=== PATIENT | male | born 1975 | race African-American/Black ===

== ENCOUNTER → 2020-09-25 | Outpatient (CLI) | payer MEDICAID, SELFPAY ==
[2020-09-25 17:16] VITALS: BMI 47.2
== END | disposition home or self-care (01) ==
LOC: LABSPEC 18:29
PROVIDERS: PCP Internal Medicine; Visit Provider Physician Assistant Surgical
DX: U07.1 COVID-19 (principal)
CPT/HCPCS: 87635; U0003

== ENCOUNTER 2020-09-30 07:53 | Inpatient (IN) | payer MEDICAID, SELFPAY ==
[2020-09-25 17:16] VITALS: BMI 47.2
[2020-09-30] VITALS (11 sets, daily range): BP systolic 106–162; BP diastolic 57–110; PULSE 93–116; RESP 16–20; TEMP 36–39.4; O2SAT 94–99; BMI 47.7; BMI 46.2
[2020-09-30] MEDS: 0.9% Normal Saline 1,000 ML 1000 ML IV ×2 (08:45→12:37)
[2020-09-30] MEDS: Loperamide 2 MG Capsule 4 MG PO (08:46)
[2020-09-30] MEDS: Dicyclomine 10 MG Capsule 20 MG PO (08:46)
[2020-09-30 08:56] LABS: ALB/GLOB Ratio 0.6 RATIO (0.9-2.4); AST(SGOT) 25 U/L (15-37); Alanine Aminotransfer ALT/SGPT 34 U/L (16-61); Albumin, Serum 3.4 g/dL (3.2-5.0); Alkaline Phosphatase 55 U/L (45-117); Anion Gap 10 (5-15); BUN 31 mg/dL (7-18); BUN/Creat Ratio 22.5 RATIO (10-20); Chloride 93 mmol/L (98-107); Creatinine, Serum 1.38 mg/dL (0.70-1.30); EST Glomerular Filtration Rate 59 mL/min (>60); Est Glom Filt Rate - Afr Amer 71 mL/min (>60); Estimated Creatinine Clearance 76.39 ml/min; Globulin 5.6 g/dL (2.2-4.2); Glucose 223 mg/dL (74-106); Potassium 3.6 mmol/L (3.5-5.1); Sodium Level 127 mmol/L (136-145)
--- NOTE | 2020-09-30 09:11 | ED.VIS.GEN ---
History of Present Illness Chief Complaint: Nausea/Vomiting Informant: Patient Onset: Days Context: Sudden Onset Timing: Continuous Quality: Abdominal pain, diarrhea, myalgias, symptoms of Covid Location: Generalized Current Severity: Moderate Maximum Severity: Severe Worsened by: Nothing specific Relieved by: Nothing Associated Symptoms: Covid symptoms Narrative: Patient is a 44-year-old male with history of obstructive sleep apnea, diabetes, hypertension, hypercholesterolemia who presents with fever, chills, scant Scooby productive cough of white sputum, dyspnea, dyspnea on exertion, myalgias, arthralgias, abdominal pain that is diffuse with diarrhea. There is no blood or mucus in the diarrhea. Patient's Covid test was positive last week. He has had symptoms for approximately 7 to 10 days. He does report headache. Denies photophobia, neck pain or neck stiffness. He does report nasal congestion denies loss of taste or smell. Denies ear pain, ringing in his ears or decreased hearing. He denies chest discomfort. He has a known umbilical hernia. He denies dysuria, frequency, urgency or hematuria. He is not noted a rash. He denies discoloration of his fingers or toes. Prior similar symptoms: Yes Recent Illness/Hospitalization: Yes - COVID-19 infection - Past Medical History (1) History of hypertension Status: Acute (2) History of type 2 diabetes mellitus Status: Acute (3) History of hypercholesterolemia Status: Acute (4) History of obstructive sleep apnea Status: Acute (5) 2019 novel coronavirus–infected pneumonia (NCIP)#8211;infected pneumonia (NCIP) Status: Acute Past Medical History - Allergies and Home Meds Allergies/Adverse Reactions: Allergies No Known Allergies Allergy (Verified 09/30/20 07:58) Primary Care Physician: Maria Luisa Sy MD [Primary Care Provider] - Prior records reviewed: Yes Lives: Alone Smoking Status: Former smoker Alcohol: None Drugs: None Review of Systems General: Reports: Chills, Fever, Malaise, Subjective, Sweats. Denies: Weight loss Eyes: Denies: Visual changes - bilaterally, Blurred Vision - bilaterally, Diplopia ENT: Reports: Rhinorrhea, Sore throat. Denies: Bilateral ear pain Cardiovascular: Reports: Palpitations, Heart racing. Denies: Chest pain Respiratory: Reports: Dyspnea, Cough, Sputum, Dyspnea on exertion. Denies: Orthopnea, Paroxysmal nocturnal dyspnea Gastrointestinal: Reports: Abdominal pain, Nausea, Vomiting - Patient reports nausea vomiting onset of illness. He no longer complains of nausea or vomiting., Diarrhea. Denies: Constipation, Melena, Hematochezia Genitourinary: Denies: Dysuria, Hematuria, Frequency Musculoskeletal: Reports: Myalgias, Arthralgias, Back pain, Extremity Pain. Denies: Neck pain, Swelling Skin: Denies: Rash Neurological: Reports: Headache, Weakness. Denies: Parasthesia, Numbness Endocrine: Denies: Polyuria, Polydipsia Hematologic: Denies: Easy bruising Allergy: Denies: Uticaria, Swelling of the mouth, Swelling of the tongue Physical Exam Vital Signs/Narrative: Vital Signs Temp Pulse Resp BP Pulse Ox 09/30/20 08:54 103 F H 106 H 16 132/57 H 99 09/30/20 07:54 96.8 F L 116 H 18 162/110 H 96 Inital Vital Signs reviewed: Yes - PE temperature of 103 ?F General: Well nourished, Well developed, Obese, - - Patient appears ill. Head: Normocephalic, Atraumatic Eyes: Perrl, EOMI. Negative for: Pale conjunctiva, Scleral icterus ENT: No rhinorrhea, TM's clear, Dry mucous membranes, Nasal congestion Neck: Supple, Nontender, No lymphadenopathy, No JVD Cardiovascular: Regular rhythm, No murmurs, Normal S1, Normal S2, Tachycardia Respiratory: No distress, CTA bilaterally, Chest nontender Abdomen: Soft, Nondistended, Normal bowel sounds, No masses, Umbilical hernia, Hernia reducible. Negative for: Nontender Rectal: Deferred Back: Nontender, Normal Inspection Extremities: Nontender, No edema. Negative for: Tenderness, Edema Skin: Normal color, No rash, No Trauma. Negative for: Cyanosis, Diaphoresis, Jaundice Neurological: Alert, Oriented x3, Cranial nerves II-XII grossly intact, Normal Strength, Normal Sensation Psychological: Depressed Diagnostic/Tx/Re-eval Laboratory Results 09/30/20 08:30 Sodium 127 L Potassium 3.6 Chloride 93 L Carbon Dioxide 24.0 Anion Gap 10 BUN 31 H Creatinine 1.38 H Estim Creat Clear Calc 76.39 Est GFR (MDRD) Af Amer 71 Est GFR (MDRD) Non-Af 59 L BUN/Creatinine Ratio 22.5 H Glucose 223 H Calcium 9.0 Total Bilirubin 0.80 AST 25 ALT 34 Alkaline Phosphatase 55 Total Protein 9.0 H Albumin 3.4 Globulin 5.6 H Albumin/Globulin Ratio 0.6 L Obtain blood work from Dr. Jimenez. He had blood work on July 21, 2020. Sodium was 138 creatinine was 0.7. Review of patient's blood pressure readings indicates a steady decline. Most recent was 93 after fluid bolus. Additional fluid bolus was ordered. His blood pressure was reassessed to confirm his low blood pressure reading and he does have a low blood pressure 91/34. In light of this we will obtain EKG and appropriate blood work to admit patient to the hospital. This is all due to poor p.o. intake and Covid infection. - Medical Decision Making In light of patient's multiple medical problems blood work was obtained to assess blood sugar, renal function and electrolytes. CBC to rule out anemia. Clinically patient is dehydrated. Was given 1 L of normal saline wide open. He was treated with Tylenol for his fever. Patient does report marked improvement of his abdominal pain after Bentyl. The time of admission labs were still pending. Labs will be followed by the hospitalist. 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
[2020-09-30] MEDS: Acetaminophen 325 MG Tablet 650 MG PO ×2 (09:30→14:08)
--- NOTE | 2020-09-30 11:12 | EKG12_ITS ---
Test Reason : Blood Pressure : / mmHG Vent. Rate : 102 BPM Atrial Rate : 102 BPM P-R Int : 156 ms QRS Dur : 108 ms QT Int : 374 ms P-R-T Axes : 045 -26 047 degrees QTc Int : 487 ms Sinus tachycardia Otherwise normal ECG Confirmed by NEHAL LOWE, SUNIL ([id number]), web editor DARLENE CHAPA ([id number]) on 10/02/2020 1:57:58 PM Referred By: KATHLEEN Confirmed By:SENG CALVERT MD
--- NOTE | 2020-09-30 11:28 | NURSING ---
DR MICHELLE WANG
--- NOTE | 2020-09-30 11:33 | RAD_ITS ---
STUDY: X-RAY CHEST REASON FOR EXAM: Male, 44 years old. COVID (+), [place] TECHNIQUE: Single AP portable view of the chest. COMPARISON: Comparison is made with prior study dated 04/20/2012. FINDINGS: Patchy infiltrate in the peripheral aspect of the right upper and right lower lobes as well as in the peripheral aspect of the left mid lung. Follow-up is recommended. There is no demonstrated pleural abnormality. Normal size heart. Normal mediastinum and julius. Normal visualized pulmonary arteries. Normal visualized aortic arch and descending thoracic aorta. There are diffuse degenerative changes of the visualized thoracic spine. Normal visualized ribs, clavicles, and shoulders. There is no demonstrated abnormality of the visualized soft tissue structures of the upper abdomen. RAD/Chest 1 View (Portable) IMPRESSION: Patchy peripheral infiltrates in the right upper and right lower lobes as well as in the midportion of the left lung. Follow-up is recommended. Electronically Signed: Shmuel Méndez, at 13:31 EST , Service support ,
--- NOTE | 2020-09-30 11:54 | NURSING ---
MED SURG MICHELLE HYPOTENSION, COVID 19, ELEVATED CREATININE, DIARRHEA
[2020-09-30 12:06] LABS: Mucous, Urine 0 SEEN /hpf (<or=2+); White Blood Cells 0 SEEN /hpf (0-5)
--- NOTE | 2020-09-30 12:10 | NURSING ---
DR MARTINEZ IN WITH PATIENT
[2020-09-30 12:11] LABS: Color, Urine Yellow (Yellow); Glucose, Dipstick Normal (Normal); Ketone-Dipstick 15 mg/dl (Negative); Leukocyte Esterase-Dipstick Negative /ul (Negative); Nitrite-Dipstick Negative (Negative); Occult Blood-Urine 25 /ul (Negative); Protein-Dipstick 100 mg/dl (Negative); Urine Bilirubin Dipstick Negative (Negative); Urine Clarity Sl. Cloudy (Clear); Urine Urobilinogen Normal (Normal)
[2020-09-30 12:19] LABS: Bacteria 1+ /hpf (None Seen); Red Blood Cells-Urine 0-5 SEEN /hpf (0-5); Squamous Epithelial Cells - UA 0-5 SEEN /hpf (0-5)
--- NOTE | 2020-09-30 12:34 | HP.PCM_ITS ---
Problem List (1) History of hypertension Status: Chronic (2) History of type 2 diabetes mellitus Status: Chronic (3) History of hypercholesterolemia Status: Chronic (4) History of obstructive sleep apnea Status: Chronic (5) 2019 novel coronavirus–infected pneumonia (NCIP)#8211;infected pneumonia (NCIP) Status: Acute (6) Hypotension due to hypovolemia Status: Acute (7) Hyperglycemia due to type 2 diabetes mellitus Status: Chronic (8) Sinus tachycardia by electrocardiography Status: Acute (9) Hyponatremia Status: Acute (10) Gastroenteritis due to COVID-19 virus Status: Acute (11) Acute kidney injury Status: Acute History of Present Illness Date of Admission: 09/30/20 Chief Complaint: Nausea, vomiting and diarrhea for about 1 week The patient is a 44 year old M with history hypertension, diabetes mellitus type 2 and morbid obesity tested positive COVID-19 PCR on 09/25/2022 after symptoms started 2?3 days prior that is 7 days ago. Patient states this started with weakness, nausea, vomiting and diarrhea. Vomiting 4-5 times clear gastric content and diarrhea watery 5-6 times without blood or mucus. Patient also felt mild abdominal cramps. He has mild cough predominantly dry sometimes a scanty whitish sputum, dyspnea on exertion, diffuse body aches myalgia and arthralgia. [] In ED his blood pressure dropped to systolic 90 which responded to the IV fluid and came to systolic 120. His usual systolic blood pressure is about 1 50-160 Twelve-lead EKG done in the ER shows sinus tachycardia at 102 bpm. QTC 487 ms. Chest x-ray PA and lateral is ordered. Past Medical History Past Medical History (Chronic Problems): Chronic Problems (Last Reviewed 09/25/20 @ 17:19 by Fabricio Shafer) History of hypertension (Chronic) History of type 2 diabetes mellitus (Chronic) History of hypercholesterolemia (Chronic) History of obstructive sleep apnea (Chronic) Hyperglycemia due to type 2 diabetes mellitus (Chronic) Allergies No Known Allergies Allergy (Verified 09/30/20 07:58) Home Medications: Ambulatory Orders Medication Instructions Recorded Amlodipine [Norvasc] 5 mg PO DAILY 09/30/20 Metformin HCl 1,000 mg PO BID 09/30/20 Lives: Alone Smoking Status: Former smoker Alcohol: None Drugs: None Review of Systems Constitutional: Denies: Chills, Fever, Weight Change HEENT: Denies: Head Aches, Sinus Congestion, Sinus Drainage Cardiovascular: Denies: Chest Pain, Palpitations Respiratory: Denies: Cough, Shortness of breath at rest, Sputum production Gastrointestinal: Reports: Abdominal Pain, Diarrhea, Nausea, Vomiting. Denies: Hematemesis, Hematochezia, Melena Genitourinary: Denies: Dysuria, Frequency Musculoskeletal: Denies: Joint Pain, Joint Tenderness Skin: Denies: Rash, Wounds Neurological: Reports: Balance problems. Denies: Focal weakness, Numbness, Tingling Psychiatric: Denies: Anxiety, Depression, Homicidal Ideations, Suicidal Ideations Hematologic/ Lymphatic: Denies: Easy Bruising, Easy Bleeding VTE Information - Inpt Only VTE Present on Admission: No VTE Mechan Device Prophylaxis: None VTE Pharm Prophylaxis ordered?: Yes Patient Problems: Active and Suspected Problems (Last Reviewed 09/25/20 @ 17:19 by Fabricio Shafer) 2019 novel coronavirus–infected pneumonia (NCIP)#8211;infected pneumonia (NCIP) (Acute) Hypotension due to hypovolemia (Acute) Sinus tachycardia by electrocardiography (Acute) Hyponatremia (Acute) - Physical Exam Vitals/I&O's: Vital Signs Temp Pulse Resp BP Pulse Ox 103 F H 106 H 16 106/58 L 99 09/30/20 08:54 09/30/20 08:54 09/30/20 08:54 09/30/20 11:23 09/30/20 08:54 Oxygen Delivery Method Room Air Weight: 362 lb Body Mass Index (BMI) 47.7 General: Alert, Oriented x3, Cooperative HEENT: Atraumatic, PERRLA, EOMI, Normocephalic Oral: No Gingival or Mucosal Lesions/ Ulcerations, Dry Mucosa Neck: Supple, No JVD, Negative Carotid Bruits Lungs: Clear to auscultation, Normal air movement Cardiovascular: Regular rate, Regular Rhythm, Normal S1, Normal S2, No murmurs Abdomen: Bowel Sounds Present, Soft, Non Tender, Non-Distended, - - Umbilical hernia reducible Extremities: No edema, Capillary Refill Less than 3 Seconds Skin: No rashes, No breakdown Musculoskeletal: No Tenderness to Palpation of Joints or Extremities Neurological: Cranial nerves II-XII grossly intact, Deep Tendon Reflexes 2+/4 and Symmetrical, Neuro grossly intact Psych/Mental Status: Normal Affect, Appropriate, - - Mild drowsy Laboratory Results 09/30/20 08:30: Sodium 127 L, Potassium 3.6, Chloride 93 L, Carbon Dioxide 24.0, Anion Gap 10, BUN 31 H, Creatinine 1.38 H, Estim Creat Clear Calc 76.39, Est GFR (MDRD) Af Amer 71, Est GFR (MDRD) Non-Af 59 L, BUN/Creatinine Ratio 22.5 H, Glucose 223 H, Calcium 9.0, Total Bilirubin 0.80, AST 25, ALT 34, Alkaline [place] sphatase 55, Total Protein 9.0 H, Albumin 3.4, Globulin 5.6 H, Albumin/Globulin Ratio 0.6 L 09/30/20 12:00: Urine Color Yellow, Urine Clarity Sl. Cloudy, Urine pH 6.0, Ur Specific [place] 1.020, Urine Protein 100 H, Urine Glucose (UA) Normal, Urine Ketones 15 H, Urine Occult Blood 25 H, Urine Nitrite Negative, Urine Bilirubin Negative, Urine Urobilinogen Normal, Ur Leukocyte Esterase Negative, Urine RBC 0-5 SEEN, Urine WBC 0 SEEN, Ur Squamous Epith Cells 0-5 SEEN, Urine Bacteria 1+, Urine Mucus 0 SEEN Assessment/Plan All Active Problems (Last Reviewed 09/25/20 @ 17:19 by Fabricio Shafer) 2019 novel coronavirus–infected pneumonia (NCIP)#8211;infected pneumonia (NCIP) (Acute) Hypotension due to hypovolemia (Acute) Sinus tachycardia by electrocardiography (Acute) Hyponatremia (Acute) Gastroenteritis due to COVID-19 virus (Acute) Acute kidney injury (Acute) 44-year-old Afro-L[place] gentleman admitted with nausea, vomiting, dry and mild cough with COVID-19 test positive 1. Acute viral gastroenteritis due to COVID-19: Patient is being admitted on MedSur. His blood pressure responded with IV fluid normal saline bolus given in ER. Continue normal saline at 150 mill per hour. Monitor intake and output. 2 g sodium carb controlled diet ordered. Chest x-ray PA and lateral ordered. Patient had fever 103 Fahrenheit. ID consult to see eligibility for remdesivir. Decadron 6 mg IV daily. Patient not hypoxic or tachypneic. 2. Acute kidney injury, prerenal etiology with hypotension due to gastroenteritis: IV fluid support. Monitor intake and output. Monitor kidney function. If kidney function does not improve will need renal ultrasound. 3. Diabetes mellitus type 2 glucose in BMP is 223 elevated. Accu-Cheks before meals and at bedtime and cover with Hem-o-kimberly sliding scale. Hold Metformin. 4. Hypertension: Patient was hypotensive and responded to IV fluid bolus. Hold amlodipine. VT prophylaxis, moderate risk: Lovenox 40 mg q. twice daily Inpatient E&M: 92206 Init Hosp L3
[2020-09-30] MEDS: dexAMETHasone 10 MG/ML Vial IV (12:37)
[2020-09-30 13:14] LABS: Absolute Lymphocyte Count 1.17 X10^3/uL (0.83-4.51); Absolute Neutrophil Count 4.7 X10^3/uL (2.0-7.7); Basophil# 0.02 X10^3/uL; Basophil% 0.3 % (0-1); Hematocrit 52.8 % (40-54); Hemoglobin 15.9 g/dL (13.0-16.5); Lymphocyte # 1.17 X10^3/ul (4.0); Lymphocyte % 18.1 % (19-41); Mean Corp Hgb Conc 30.1 g/dL (32-36); Mean Corpuscular Hgb 20.6 pg (27.0-32.0); Mean Corpuscular Volume 68.3 fL (80-94); Mean Platelet Vol. 10.6 fl (6.2-12.0); Monocyte# 0.55 X10^3/uL; Monocyte% 8.5 % (0-10); NRBC Flagged by Analyzer 0 % (0-5); Neutrophil % 72.6 % (47-70); POSITIVE MORPHOLOGY YES; Platelet Count 340 K/mm3 (150-450); RBC Distribution Width CV 16.8 % (11.6-14.6); RBC Distribution Width SD 35.3 fl (35.1-43.9); Red Blood Count 7.73 M/mm3 (4.6-6.2); White Blood Count 6.5 K/mm3 (4.4-11.0)
[2020-09-30 13:21] LABS: Differential Indicated SCAN CRITERIA MET
[2020-09-30 13:27] LABS: Ferritin 419 ng/mL (26-388); LDH 353 U/L (87-241)
[2020-09-30 13:46] LABS: D-Dimer Quantitative (DVT/PE) 4.44 FEU/ug/m (0.27-0.49)
[2020-09-30] MEDS: 0.9% Normal Saline 1,000 ML 150 ML IV ×2 (14:01→21:41)
[2020-09-30 14:03] LABS: Atypical Lymphocyte 1+ %
[2020-09-30 14:05] LABS: Platelet Estimate ADEQUATE (ADEQ); Red Cell Morphology NORM C+C NORMAL (NORM C&C)
[2020-09-30] MEDS: APIXABAN 5 MG TABLET 10 MG PO ×2 (14:37→21:38)
--- NOTE | 2020-09-30 16:28 | PCM.HP.ID ---
Problem List (1) SARS-associated coronavirus infection Status: Acute Reason for Consult: covid Consulted by: Dr. Seals History of Present Illness: The patient is a 44 year old M with h/o DM, obesity, presented with 1-2 weeks of fever, aches, loss of taste/smell, cough, dyspnea. Lives with fiancee and kids, they have been feeling ok, in quarantine now. Came to ED with worsening sx, admitted on dex, remdesivir. Temp of 103. On RA. Full ROS performed and neg except as noted above. - Medical History Past Medical History (Chronic Problems): Chronic Problems (Last Reviewed 09/25/20 @ 17:19 by Fabricio Shafer) History of hypertension (Chronic) History of type 2 diabetes mellitus (Chronic) History of hypercholesterolemia (Chronic) History of obstructive sleep apnea (Chronic) Hyperglycemia due to type 2 diabetes mellitus (Chronic) Allergies/Adverse Reactions: Allergies No Known Allergies Allergy (Verified 09/30/20 07:58) Home Medications: Ambulatory Orders Medication Instructions Recorded Amlodipine [Norvasc] 5 mg PO DAILY 09/30/20 Metformin HCl 1,000 mg PO BID 09/30/20 - Social History SMOKING STATUS:: Former smoker Vital Signs Temp Pulse Resp BP Pulse Ox 101.8 F H 98 20 H 142/83 H 97 09/30/20 13:31 09/30/20 13:31 09/30/20 13:31 09/30/20 13:31 09/30/20 13:31 Oxygen Delivery Method Room Air Weight: 158.842 kg Body Mass Index (BMI) 46.2 Laboratory Tests Past 24 Hrs 09/30/20 09/30/20 09/30/20 08:30 08:30 08:30 WBC 6.5 RBC 7.73 H Hgb 15.9 Hct 52.8 MCV 68.3 L MCH 20.6 L MCHC 30.1 L RDW Std Deviation 35.3 RDW Coeff of Kg 16.8 H Plt Count 340 MPV 10.6 Immature Gran % (Auto) 0.500 Neut % (Auto) 72.6 H Lymph % (Auto) 18.1 L [place] % (Auto) 8.5 Eos % (Auto) 0.0 Baso % (Auto) 0.3 Absolute Neuts (auto) 4.7 Absolute Lymphs (auto) 1.17 Nucleated RBC % 0 Atypical Lymphocytes 1+ Platelet Estimate ADEQUATE RBC Morphology NORM C+C D-Dimer Quant (PE/DVT) 4.44 H* Sodium 127 L Potassium 3.6 Chloride 93 L Carbon Dioxide 24.0 Anion Gap 10 BUN 31 H Creatinine 1.38 H Estim Creat Clear Calc 76.39 Est GFR (MDRD) Af Amer 71 Est GFR (MDRD) Non-Af 59 L BUN/Creatinine Ratio 22.5 H Glucose 223 H Calcium 9.0 Phosphorus Ferritin Total Bilirubin 0.80 AST 25 ALT 34 Alkaline Phosphatase 55 Lactate Dehydrogenase C-React Prot Ext Range Total Protein 9.0 H Albumin 3.4 Globulin 5.6 H Albumin/Globulin Ratio 0.6 L Urine Color Urine Clarity Urine pH Ur Specific [place] Urine Protein Urine Glucose (UA) Urine Ketones Urine Occult Blood Urine Nitrite Urine Bilirubin Urine Urobilinogen Ur Leukocyte Esterase Urine RBC Urine WBC Ur Squamous Epith Cells Urine Bacteria Urine Mucus 09/30/20 09/30/20 08:30 12:00 WBC RBC Hgb Hct MCV MCH MCHC RDW Std Deviation RDW Coeff of Kg Plt Count MPV Immature Gran % (Auto) Neut % (Auto) Lymph % (Auto) [place] % (Auto) Eos % (Auto) Baso % (Auto) Absolute Neuts (auto) Absolute Lymphs (auto) Nucleated RBC % Atypical Lymphocytes Platelet Estimate RBC Morphology D-Dimer Quant (PE/DVT) Sodium Potassium Chloride Carbon Dioxide Anion Gap BUN Creatinine Estim Creat Clear Calc Est GFR (MDRD) Af Amer Est GFR (MDRD) Non-Af BUN/Creatinine Ratio Glucose Calcium Phosphorus 3.0 Ferritin 419 H Total Bilirubin AST ALT Alkaline Phosphatase Lactate Dehydrogenase 353 H C-React Prot Ext Range 63.30 H Total Protein Albumin Globulin Albumin/Globulin Ratio Urine Color Yellow Urine Clarity Sl. Cloudy Urine pH 6.0 Ur Specific [place] 1.020 Urine Protein 100 H Urine Glucose (UA) Normal Urine Ketones 15 H Urine Occult Blood 25 H Urine Nitrite Negative Urine Bilirubin Negative Urine Urobilinogen Normal Ur Leukocyte Esterase Negative Urine RBC 0-5 SEEN Urine WBC 0 SEEN Ur Squamous Epith Cells 0-5 SEEN Urine Bacteria 1+ Urine Mucus 0 SEEN - Other Studies Radiology: [] reviewed Other Studies: [] Route of nutrition/ use of supplements: [] Nutritional Intake: [] IV Site: [] Ho Catheter: [] - Physical Exam General: Alert, Oriented x3, Cooperative, No apparent distress HEENT: Atraumatic, PERRLA, EOMI Neck: Supple, No Nodes Lungs: Diminished Cardiovascular: Regular rate, Regular Rhythm Abdomen: Soft, Non Tender, Non-Distended, Obese Extremities: No edema Skin: No rashes IV Site: Peripheral, without redness Musculoskeletal: No Tenderness to Palpation of Joints or Extremities Neurological: Cranial nerves II-XII grossly intact - Assessment/Plan Antibiotics: [] Assessment/Plan: [] Active and Suspected Problems (Last Reviewed 09/25/20 @ 17:19 by Fabricio Shafer) 2019 novel coronavirus–infected pneumonia (NCIP)#8211;infected pneumonia (NCIP) (Acute) Hypotension due to hypovolemia (Acute) Sinus tachycardia by electrocardiography (Acute) Hyponatremia (Acute) Gastroenteritis due to COVID-19 virus (Acute) Acute kidney injury (Acute) Acute renal insufficiency (Acute) Elevated serum creatinine (Acute) Diarrhea (Acute) SARS-associated coronavirus infection (Acute) covid with hypoxia, fever. Will do dex, remdesivir, eliquis. D-dimer 4.4. Sx started around 09/22/20. Will follow, thank you
[2020-09-30 17:00] LABS: Bedside Glucose 368 mg/dL (70-110)
[2020-09-30] MEDS: Insulin Lispro 100 UNIT/ML INSULN.PEN SC ×2 (17:36→20:42)
[2020-09-30 22:55] LABS: Bedside Glucose 352 mg/dL (70-110)
[2020-10-01] VITALS (13 sets, daily range): BP systolic 116–152; BP diastolic 65–105; PULSE 97–113; RESP 16–18; TEMP 36.7–37.6; O2SAT 92–95
[2020-10-01] MEDS: Insulin Lispro 100 UNIT/ML INSULN.PEN SC ×4 (06:04→21:39)
[2020-10-01 07:41] LABS: Bedside Glucose 212 mg/dL (70-110)
[2020-10-01 08:10] LABS: Hematocrit 42.9 % (40-54); Hemoglobin 13.2 g/dL (13.0-16.5); Mean Corp Hgb Conc 30.8 g/dL (32-36); Mean Corpuscular Hgb 21.1 pg (27.0-32.0); Mean Corpuscular Volume 68.6 fL (80-94); Mean Platelet Vol. 11.2 fl (6.2-12.0); Platelet Count 386 K/mm3 (150-450); RBC Distribution Width CV 15.6 % (11.6-14.6); RBC Distribution Width SD 35.5 fl (35.1-43.9); Red Blood Count 6.25 M/mm3 (4.6-6.2); White Blood Count 8.2 K/mm3 (4.4-11.0)
[2020-10-01 08:33] LABS: ALB/GLOB Ratio 0.6 RATIO (0.9-2.4); AST(SGOT) 19 U/L (15-37); Alanine Aminotransfer ALT/SGPT 28 U/L (16-61); Albumin, Serum 2.8 g/dL (3.2-5.0); Alkaline Phosphatase 47 U/L (45-117); Anion Gap 6 (5-15); BUN 18 mg/dL (7-18); BUN/Creat Ratio 20.7 RATIO (10-20); Calcium,Total 8.7 mg/dL (8.5-10.1); Chloride 102 mmol/L (98-107); Creatinine, Serum 0.87 mg/dL (0.70-1.30); EST Glomerular Filtration Rate 100 mL/min (>60); Est Glom Filt Rate - Afr Amer 121 mL/min (>60); Estimated Creatinine Clearance 121.18 ml/min; Globulin 4.9 g/dL (2.2-4.2); Glucose 200 mg/dL (74-106); Potassium 3.6 mmol/L (3.5-5.1); Protein, Total 7.7 g/dL (6.4-8.2); Sodium Level 134 mmol/L (136-145)
[2020-10-01] MEDS: APIXABAN 5 MG TABLET 10 MG PO ×2 (10:04→21:33)
[2020-10-01] MEDS: dexAMETHasone 4 MG Tablet 6 MG PO (10:04)
[2020-10-01] MEDS: proCHLORPERazine 10 MG/2 ML Vial IV (10:10)
[2020-10-01] MEDS: 0.9% Saline Lock 10 ML Syringe IV (10:10)
--- NOTE | 2020-10-01 10:27 | CASEMGMT ---
Addendum entered by Ankush Vela 10/01/20 12:18: Patient is being discharged. Attempted again to contact patient via hospital and cell phone. No answer, but per nursing pt is independent and no needs for discharge identified. Original Note: RN CM Assessment Note attempted x 2 to contact patient in room. No answer. Attempted x 2 to contact S.O. no answer. Pt presented to urgent care on 09/25/20 and tested positive for covid. Now with nausea, vomiting and diarrhea. They have been quarantining @ home. COVID TESTIN09/25/2020, @ [facility]: positive Diagnosis: COVID-19 PMH: DM, HTN PCP: Dr. Sy Insurance: [facility] Preferred Pharmacy: [facility] Pres[facility] Benefit: yes LNOK: Tricia Acosta Living Arrangements: Lives independently with significant other DME: If oxygen is needed, Bridget and STEVE are [employer] with [facility]. DC Plan: anticipate home on discharge. Sera RAMIREZ RN ACM
--- NOTE | 2020-10-01 10:58 | PCM.PN.HOSP ---
Patient Problems: Active and Suspected Problems (Last Reviewed 09/25/20 @ 17:19 by Fabricio Shafer) 2019 novel coronavirus–infected pneumonia (NCIP)#8211;infected pneumonia (NCIP) (Acute) Hypotension due to hypovolemia (Acute) Sinus tachycardia by electrocardiography (Acute) Hyponatremia (Acute) Gastroenteritis due to COVID-19 virus (Acute) Acute kidney injury (Acute) Acute renal insufficiency (Acute) Elevated serum creatinine (Acute) Diarrhea (Acute) SARS-associated coronavirus infection (Acute) Reason for Visit: Follow-up for COVID-19 infection with viral gastroenteritis Objective: Seen and examined. Morbid obesity. Patient had low-grade fever, 101.8 Fahrenheit yesterday. Still has mild abdominal cramps. Patient did not had any bowel movement or diarrhea after admission. Pulse ox 93% on room air and not tachypneic. Using CPAP at home Patient was doing good in the morning but he vomited in afternoon about 1 PM. Physical exam General: Alert, Oriented x3, Cooperative, morbid obesity BMI 46 kg/m? HEENT: Atraumatic, PERRLA, EOMI, Normocephalic Oral: No Gingival or Mucosal Lesions/ Ulcerations Neck: Supple, No JVD, Negative Carotid Bruits Lungs: Air entry diminished in bilateral lung bases. No crepitation/rhonchi Cardiovascular: Regular rate, Regular Rhythm, Normal S1, Normal S2, No murmurs Abdomen: Bowel Sounds Present, Soft, Non Tender, Non-Distended. Reducible umbilical hernia : No renal angle tenderness. No suprapubic tenderness. Extremities: No edema, Capillary Refill Less than 3 Seconds Skin: No rashes, No breakdown Musculoskeletal: No Tenderness to Palpation of Joints or Extremities Neurological: Cranial nerves II-XII grossly intact, Deep Tendon Reflexes 2+/4 and Symmetrical, Neuro grossly intact Psych/Mental Status: Normal Affect, Appropriate. Vitals/I&O's: Vital Signs Temp Pulse Resp BP Pulse Ox 99.6 F H 101 H 18 125/76 H 93 10/01/20 10:28 10/01/20 10:28 10/01/20 10:28 10/01/20 10:28 10/01/20 10:28 Oxygen Delivery Method Room Air Weight: 350 lb 2.986 oz Body Mass Index (BMI) 46.2 Intake and Output for Last 24 Hours 09/29/20 09/30/20 10/01/20 23:59 23:59 23:59 Intake Total 4350 / 4350 1500 / 1500 Output Total 1450 / 1450 1125 / 1125 Balance 2900 / 2900 375 / 375 Microbiology Past 72 Hours 09/30/20 Unknown Urine, Random Streptococcus pneumoniae Antigen (M - Final 09/30/20 Unknown Urine, Random Legionella Antigen - Final Laboratory Results 09/30/20 08:30: WBC 6.5, RBC 7.73 H, Hgb 15.9, Hct 52.8, MCV 68.3 L, MCH 20.6 L, MCHC 30.1 L, RDW Std Deviation 35.3, RDW Coeff of Kg 16.8 H, Plt Count 340, MPV 10.6, Immature Gran % (Auto) 0.500, Neut % (Auto) 72.6 H, Lymph % (Auto) 18.1 L, [place] % (Auto) 8.5, Eos % (Auto) 0.0, Baso % (Auto) 0.3, Absolute Neuts (auto) 4.7, Absolute Lymphs (auto) 1.17, Nucleated RBC % 0, Atypical Lymphocytes 1+, Platelet Estimate ADEQUATE, RBC Morphology NORM C+C 09/30/20 08:30: D-Dimer Quant (PE/DVT) 4.44 H* 09/30/20 08:30: Phosphorus 3.0, Ferritin 419 H, Lactate Dehydrogenase 353 H, C-React Prot Ext Range 63.30 H 09/30/20 12:00: Urine Color Yellow, Urine Clarity Sl. Cloudy, Urine pH 6.0, Ur Specific [place] 1.020, Urine Protein 100 H, Urine Glucose (UA) Normal, Urine Ketones 15 H, Urine Occult Blood 25 H, Urine Nitrite Negative, Urine Bilirubin Negative, Urine Urobilinogen Normal, Ur Leukocyte Esterase Negative, Urine RBC 0-5 SEEN, Urine WBC 0 SEEN, Ur Squamous Epith Cells 0-5 SEEN, Urine Bacteria 1+, Urine Mucus 0 SEEN 09/30/20 16:29: POC Glucose 368 H 09/30/20 20:40: POC Glucose 352 H 10/01/20 06:03: POC Glucose 212 H 10/01/20 07:05: WBC 8.2, RBC 6.25 H, Hgb 13.2, Hct 42.9, MCV 68.6 L, MCH 21.1 L, MCHC 30.8 L, RDW Std Deviation 35.5, RDW Coeff of Kg 15.6 H, Plt Count 386, MPV 11.2 10/01/20 07:05: Sodium 134 L, Potassium 3.6, Chloride 102, Carbon Dioxide 26.0, Anion Gap 6, BUN 18, Creatinine 0.87, Estim Creat Clear Calc 121.18, Est GFR (MDRD) Af Amer 121, Est GFR (MDRD) Non-Af 100, BUN/Creatinine Ratio 20.7 H, Glucose 200 H, Calcium 8.7, Total Bilirubin 0.60, AST 19, ALT 28, Alkaline Phosphatase 47, Total Protein 7.7, Albumin 2.8 L, Globulin 4.9 H, Albumin/Globulin Ratio 0.6 L Current Medications Acetaminophen (Acetaminophen 325 Mg Tablet) 650 mg PO Q4H PRN PRN PRN Reason: pain, 1-10/ FEVER T >100.4 Last Admin: 09/30/20 14:08 Dose: 650 mg Documented by: Al Hydroxide/Mg Hydroxide (Mag Hydrox/Al Hydrox/Simeth 30 Ml Udc) 30 ml PO Q6H PRN PRN PRN Reason: Gastric Burning Apixaban (Apixaban 5 Mg Tablet) 10 mg PO BID [facility] Last Admin: 10/01/20 10:04 Dose: 10 mg Documented by: Dexamethasone (Dexamethasone 4 Mg Tablet) 6 mg PO DAILY [facility] Stop: 10/09/20 10:01 Last Admin: 10/01/20 10:04 Dose: 6 mg Documented by: Dextrose (Dextrose 50%-Water 25 Gm/50 Ml Disp.Syrin) 0 gm IV X1 PRN; Protocol PRN Reason: Hypoglycemia Glucagon (Glucagon 1 Mg/Ml Syringe) 1 mg IM .X1 PRN PRN Reason: Hypoglycemia Remdesivir 100 mg/ Sodium (Chloride) 250 mls @ 125 mls/hr IV DAILY [facility] Stop: 10/04/20 11:59 Insulin Glargine (Insulin Glargine 100 Units/Ml Pen) 10 units SC QHS [facility] Last Admin: 09/30/20 20:42 Dose: 10 units Documented by: Insulin Human Lispro (Insulin Lispro 100 Unit/Ml Insuln.Pen) 0 unit SC ACHS [facility]; Protocol Last Admin: 10/01/20 06:04 Dose: 4 units Documented by: Morphine Sulfate (Morphine 2 Mg/Ml Syringe) 2 mg IV Q4H PRN PRN PRN Reason: Pain Score 6-10 Oxycodone HCl (Oxycodone 5 Mg Tablet) 5 mg PO Q4H PRN PRN PRN Reason: Pain Score 4-5 Prochlorperazine Edisylate (Prochlorperazine 10 Mg/2 Ml Vial) 10 mg IV Q6H PRN PRN PRN Reason: Nausea/Vomiting Last Admin: 10/01/20 10:10 Dose: 10 mg Documented by: Sodium Chloride (0.9% Saline Lock 10 Ml Syringe) 10 - 40 ml IV UD PRN PRN Reason: SALINE FLUSH Last Admin: 10/01/20 10:10 Dose: 10 ml Documented by: STROKE Vital Signs/Narrative: Vital Signs Temp Pulse Resp BP Pulse Ox 10/01/20 10:28 99.6 F H 101 H 18 125/76 H 93 Medical Necessity - Tobacco Use Smoking Status: Former smoker Assessment/Plan All Active Problems (Last Reviewed 09/25/20 @ 17:19 by Fabricio Shafer) 2019 novel coronavirus–infected pneumonia (NCIP)#8211;infected pneumonia (NCIP) (Acute) Hypotension due to hypovolemia (Acute) Sinus tachycardia by electrocardiography (Acute) Hyponatremia (Acute) Gastroenteritis due to COVID-19 virus (Acute) Acute kidney injury (Acute) Acute renal insufficiency (Acute) Elevated serum creatinine (Acute) Diarrhea (Acute) SARS-associated coronavirus infection (Acute) 44-year-old Afro-Welsh gentleman admitted with nausea, vomiting, dry and mild cough with COVID-19 test positive 1. Acute viral gastroenteritis due to COVID-19: Patient is being admitted on MedSur. His blood pressure responded with IV fluid normal saline bolus given in ER. Continue normal saline at 150 mill per hour. Monitor intake and output. 2 g sodium carb controlled diet ordered. Chest x-ray PA and lateral ordered. Patient had fever 103 Fahrenheit. ID consult to see eligibility for remdesivir. Decadron 6 mg IV daily. Patient not hypoxic or tachypneic. 10/01: Patient did not had bowel movement after admission therefore no stool collection for testing. Still complained of mild abdominal cramps. Tolerating diet. Patient vomited in the afternoon. Earlier he wanted to go home but will cancel the discharge. Continue IV fluid normal saline. Urinary antigens are negative. 2. Acute kidney injury, prerenal etiology with hypotension due to gastroenteritis: IV fluid support. Monitor intake and output. Monitor kidney function. If kidney function does not improve will need renal ultrasound. 10/01: BUN/creatinine normal. Sodium 134. 3. Diabetes mellitus type 2 glucose in BMP is 223 elevated. Accu-Cheks before meals and at bedtime and cover with Humalog sliding scale. Hold Metformin. 10/01: Glucose is controlled, glucose 212. Humalog scheduled 8 units 3 times daily with meals. 4. Hypertension: Patient was hypotensive and responded to IV fluid bolus. Hold amlodipine. VT prophylaxis, moderate risk: Lovenox 40 mg q. twice daily Microbiology Past 72 Hours 09/30/20 Unknown Urine, Random Streptococcus pneumoniae Antigen (M - Final 09/30/20 Unknown Urine, Random Legionella Antigen - Final Laboratory Results 09/30/20 08:30: WBC 6.5, RBC 7.73 H, Hgb 15.9, Hct 52.8, MCV 68.3 L, MCH 20.6 L, MCHC 30.1 L, RDW Std Deviation 35.3, RDW Coeff of Kg 16.8 H, Plt Count 340, MPV 10.6, Immature Gran % (Auto) 0.500, Neut % (Auto) 72.6 H, Lymph % (Auto) 18.1 L, [place] % (Auto) 8.5, Eos % (Auto) 0.0, Baso % (Auto) 0.3, Absolute Neuts (auto) 4.7, Absolute Lymphs (auto) 1.17, Nucleated RBC % 0, Atypical Lymphocytes 1+, Platelet Estimate ADEQUATE, RBC Morphology NORM C+C 09/30/20 08:30: D-Dimer Quant (PE/DVT) 4.44 H* 09/30/20 08:30: Phosphorus 3.0, Ferritin 419 H, Lactate Dehydrogenase 353 H, C-React Prot Ext Range 63.30 H 09/30/20 16:29: POC Glucose 368 H 09/30/20 20:40: POC Glucose 352 H 10/01/20 06:03: POC Glucose 212 H 10/01/20 07:05: WBC 8.2, RBC 6.25 H, Hgb 13.2, Hct 42.9, MCV 68.6 L, MCH 21.1 L, MCHC 30.8 L, RDW Std Deviation 35.5, RDW Coeff of Kg 15.6 H, Plt Count 386, MPV 11.2 10/01/20 07:05: Sodium 134 L, Potassium 3.6, Chloride 102, Carbon Dioxide 26.0, Anion Gap 6, BUN 18, Creatinine 0.87, Estim Creat Clear Calc 121.18, Est GFR (MDRD) Af Amer 121, Est GFR (MDRD) Non-Af 100, BUN/Creatinine Ratio 20.7 H, Glucose 200 H, Calcium 8.7, Total Bilirubin 0.60, AST 19, ALT 28, Alkaline Phosphatase 47, Total Protein 7.7, Albumin 2.8 L, Globulin 4.9 H, Albumin/Globulin Ratio 0.6 L 10/01/20 11:16: POC Glucose 297 H Inpatient E&M: 21288 Subs Hosp L2
--- NOTE | 2020-10-01 11:09 | DCINST_ITS ---
- Discharge Diagnoses Current Active Problems: Current Active and Chronic Problems (Last Reviewed 09/25/20 @ 17:19 by Fabricio Shafer) History of hypertension (Chronic) History of type 2 diabetes mellitus (Chronic) History of hypercholesterolemia (Chronic) History of obstructive sleep apnea (Chronic) 2019 novel coronavirus–infected pneumonia (NCIP)#8211;infected pneumonia (NCIP) (Acute) Hypotension due to hypovolemia (Acute) Hyperglycemia due to type 2 diabetes mellitus (Chronic) Sinus tachycardia by electrocardiography (Acute) Hyponatremia (Acute) Gastroenteritis due to COVID-19 virus (Acute) Acute kidney injury (Acute) Acute renal insufficiency (Acute) Elevated serum creatinine (Acute) Diarrhea (Acute) SARS-associated coronavirus infection (Acute) Allergies/Adverse Reactions: Allergies No Known Allergies Allergy (Verified 09/30/20 07:58) Medications to take at Discharge Amlodipine [Norvasc] 5 mg PO DAILY 09/30/20 Metformin HCl 1,000 mg PO BID 09/30/20 Primary Care Physician: Maria Luisa Sy MD [Primary Care Provider] - Test Results: Test results from this visit will be discussed in further detail at your follow- up appointment, if applicable.
[2020-10-01] MEDS: Insulin Lispro 100 UNIT/ML INSULN.PEN 8 UNIT SC (11:20)
[2020-10-01] MEDS: Mag Hydrox/Al Hydrox/Simeth 30 ML UDC PO (11:27)
[2020-10-01 11:30] LABS: Bedside Glucose 297 mg/dL (70-110)
[2020-10-01 17:16] LABS: Bedside Glucose 316 mg/dL (70-110)
[2020-10-01 22:00] LABS: Bedside Glucose 269 mg/dL (70-110)
[2020-10-02] VITALS (33 sets, daily range): BP systolic 88–144; BP diastolic 42–86; PULSE 87–121; RESP 12–29; TEMP 36.1–36.7; O2SAT 88–99
--- NOTE | 2020-10-02 06:18 | PCM.PN.BLA ---
Progress Note Nurse reports dark black stools beneath with blood. Will discontinue Eliquis. Will start patient on a Protonix IV drip and bolus. Rounding hospitalist to follow. Trend H&H. Discussed with general surgeon health information managers. STROKE Vital Signs/Narrative: Vital Signs Temp Pulse Resp BP Pulse Ox 10/02/20 03:06 98.1 F 100 16 122/81 H 98
[2020-10-02] MEDS: 0.9% Saline Lock 10 ML Syringe IV (06:50)
[2020-10-02 07:53] LABS: Hematocrit 31.2 % (40-54); Hemoglobin 9.8 g/dL (13.0-16.5); Mean Corp Hgb Conc 31.4 g/dL (32-36); Mean Corpuscular Hgb 21.2 pg (27.0-32.0); Mean Corpuscular Volume 67.5 fL (80-94); Mean Platelet Vol. 10.8 fl (6.2-12.0); Platelet Count 439 K/mm3 (150-450); RBC Distribution Width CV 14.5 % (11.6-14.6); RBC Distribution Width SD 34.3 fl (35.1-43.9); Red Blood Count 4.62 M/mm3 (4.6-6.2); White Blood Count 8.2 K/mm3 (4.4-11.0)
[2020-10-02] MEDS: Lactated Ringers 1,000 ML 999 ML IV ×2 (08:06→09:06)
[2020-10-02 08:17] LABS: ALB/GLOB Ratio 0.6 RATIO (0.9-2.4); AST(SGOT) 12 U/L (15-37); Alanine Aminotransfer ALT/SGPT 24 U/L (16-61); Albumin, Serum 2.6 g/dL (3.2-5.0); Alkaline Phosphatase 36 U/L (45-117); Anion Gap 7 (5-15); BUN 31 mg/dL (7-18); BUN/Creat Ratio 34.9 RATIO (10-20); Calcium,Total 8.6 mg/dL (8.5-10.1); Chloride 98 mmol/L (98-107); Creatinine, Serum 0.89 mg/dL (0.70-1.30); EST Glomerular Filtration Rate 98 mL/min (>60); Est Glom Filt Rate - Afr Amer 119 mL/min (>60); Estimated Creatinine Clearance 118.45 ml/min; Glucose 243 mg/dL (74-106); Potassium 3.8 mmol/L (3.5-5.1); Protein, Total 6.6 g/dL (6.4-8.2); Sodium Level 134 mmol/L (136-145)
[2020-10-02] MEDS: Insulin Lispro 100 UNIT/ML INSULN.PEN 8 UNIT SC (08:25)
[2020-10-02] MEDS: Insulin Lispro 100 UNIT/ML INSULN.PEN SC ×3 (08:26→23:19)
[2020-10-02] MEDS: dexAMETHasone 4 MG Tablet 6 MG PO (08:27)
--- NOTE | 2020-10-02 08:55 | RAD_ITS ---
STUDY: X-RAY CHEST REASON FOR EXAM: Male, 44 years old. LOW BLOOD PRESSURE, BLOOD IN STOOL, TACHYPNEA, COVID PNEUMONIA TECHNIQUE: Single AP portable view of the chest. COMPARISON: Comparison is made with prior study dated 09/30/2020. FINDINGS: EKG electrodes are seen. Residual patchy infiltrates in the lateral aspect of the right hemithorax although there has been improvement. Minimal residual changes in the left hemithorax. There is no demonstrated pleural abnormality. Normal size heart. Normal mediastinum and julius. Normal visualized pulmonary arteries. Normal visualized aortic arch and descending thoracic aorta. There are diffuse degenerative changes of the visualized thoracic spine. Normal visualized ribs, clavicles, and shoulders. There is no demonstrated abnormality of the visualized soft tissue structures of the upper abdomen. RAD/Chest 1 View (Portable) IMPRESSION: Since prior study, there has been improved aeration of both lungs with residual infiltrate in the lateral aspect of the right hemithorax. Electronically Signed: Shmuel Méndez, at 9:37 EST , Service support ,
--- NOTE | 2020-10-02 09:08 | PN_ITS ---
Patient Problems: Active and Suspected Problems (Last Reviewed 09/25/20 @ 17:19 by Fabricio Shafer) 2019 novel coronavirus–infected pneumonia (NCIP)#8211;infected pneumonia (NCIP) (Acute) Hypotension due to hypovolemia (Acute) Sinus tachycardia by electrocardiography (Acute) Hyponatremia (Acute) Gastroenteritis due to COVID-19 virus (Acute) Acute kidney injury (Acute) Acute renal insufficiency (Acute) Elevated serum creatinine (Acute) Diarrhea (Acute) SARS-associated coronavirus infection (Acute) GI bleed (Acute) Reason for Visit: Follow-up for acute GI bleed with hypotension, mostly secondary to Eliquis Objective: Overnight patient had bright red stool in the toilet bowl 3-4 times, last one just half an hour ago. 1 spike of fever 101.8 yesterday afternoon. Patient drop blood pressure systolic 88/61 is feeling weak. Patient sitting in the chair and IV fluid Ringer lactate bolus running. He denies any feeling dizzy or lightheaded but weak and mild abdominal discomfort. Heart rate in 100s. Pulse ox 98 to 99% on room air. Not tachypneic Physical exam General: Alert, Oriented x3, Cooperative HEENT: Atraumatic, PERRLA, EOMI, Normocephalic Oral: No Gingival or Mucosal Lesions/ Ulcerations Neck: Supple, No JVD, Negative Carotid Bruits Lungs: Air entry diminished in bilateral lung bases. No crepitation/rhonchi Cardiovascular: Regular rate, Regular Rhythm, Normal S1, Normal S2, No murmurs Abdomen: Bowel Sounds Present, Soft, Non Tender, Non-Distended. Moderate sized umbilical hernia : No renal angle tenderness. No suprapubic tenderness. Extremities: No edema, Capillary Refill Less than 3 Seconds Skin: No rashes, No breakdown Musculoskeletal: No Tenderness to Palpation of Joints or Extremities Neurological: Cranial nerves II-XII grossly intact, Deep Tendon Reflexes 2+/4 and Symmetrical, Neuro grossly intact Psych/Mental Status: Normal Affect, Appropriate. Vitals/I&O's: Vital Signs Temp Pulse Resp BP Pulse Ox 97.4 F L 102 H 16 88/61 L 99 10/02/20 08:20 10/02/20 08:20 10/02/20 08:20 10/02/20 08:20 12/04/20 08:20 Oxygen Delivery Method Room Air Weight: 350 lb 2.986 oz Body Mass Index (BMI) 46.2 Intake and Output for Last 24 Hours 09/30/20 10/01/20 10/02/20 23:59 23:59 23:59 Intake Total 4350 / 4350 1750 / 1750 1234 / 1234 Output Total 1450 / 1450 3325 / 3325 Balance 2900 / 2900 -1575 / -1575 1234 / 1234 Microbiology Past 72 Hours 10/02/20 06:00 Stool Stool Occult Blood (LINETTE) - Final 10/01/20 14:15 Stool Stool Lactoferrin - Final 10/01/20 14:15 Stool Enteric Bacteriology - Final 10/01/20 14:15 Stool Stool Occult Blood (LINETTE) - Final 09/30/20 Unknown Urine, Random Streptococcus pneumoniae Antigen (M - Final 09/30/20 Unknown Urine, Random Legionella Antigen - Final Laboratory Results 10/01/20 11:16: POC Glucose 297 H 10/01/20 17:04: POC Glucose 316 H 10/01/20 21:38: POC Glucose 269 H 10/02/20 06:55: WBC 8.2, RBC 4.62, Hgb 9.8 L, Hct 31.2 L, MCV 67.5 L, MCH 21.2 L , MCHC 31.4 L, RDW Std Deviation 34.3 L, RDW Coeff of Kg 14.5, Plt Count 439, MPV 10.8 10/02/20 06:55: Sodium 134 L, Potassium 3.8, Chloride 98, Carbon Dioxide 29.0, Anion Gap 7, BUN 31 H, Creatinine 0.89, Estim Creat Clear Calc 118.45, Est GFR (MDRD) Af Amer 119, Est GFR (MDRD) Non-Af 98, BUN/Creatinine Ratio 34.9 H, Glucose 243 H, Calcium 8.6, Total Bilirubin 0.50, AST 12 L, ALT 24, Alkaline Phosphatase 36 L, Total Protein 6.6, Albumin 2.6 L, Globulin 4.0, Albumin/Globulin Ratio 0.6 L Current Medications Acetaminophen (Acetaminophen 325 Mg Tablet) 650 mg PO Q4H PRN PRN PRN Reason: pain, 1-10/ FEVER T >100.4 Last Admin: 09/30/20 14:08 Dose: 650 mg Documented by: Al Hydroxide/Mg Hydroxide (Mag Hydrox/Al Hydrox/Simeth 30 Ml Udc) 30 ml PO Q6H PRN PRN PRN Reason: Gastric Burning Last Admin: 10/01/20 11:27 Dose: 30 ml Documented by: Dexamethasone (Dexamethasone 4 Mg Tablet) 6 mg PO DAILY [facility] Stop: 10/09/20 10:01 Last Admin: 10/02/20 08:27 Dose: 6 mg Documented by: Dextrose (Dextrose 50%-Water 25 Gm/50 Ml Disp.Syrin) 0 gm IV X1 PRN; Protocol PRN Reason: Hypoglycemia Glucagon (Glucagon 1 Mg/Ml Syringe) 1 mg IM .X1 PRN PRN Reason: Hypoglycemia Remdesivir 100 mg/ Sodium (Chloride) 250 mls @ 125 mls/hr IV DAILY [facility] Stop: 10/04/20 11:59 Last Infusion: 10/01/20 13:17 Dose: Infused Documented by: Pantoprazole Sodium 80 mg/ (Sodium Chloride) 100 mls @ 10 mls/hr CONT INF Q10H [facility] Last Admin: 10/02/20 08:03 Dose: 10 mls/hr Documented by: Lactated Ringer's () 1,000 mls @ 999 mls/hr IV .Q1H1M [facility] Stop: 10/02/20 09:15 Last Admin: 10/02/20 09:06 Dose: 999 mls/hr Documented by: Lactated Ringer's () 1,000 mls @ 125 mls/hr IV .Q8H [facility] Insulin Glargine (Insulin Glargine 100 Units/Ml Pen) 10 units SC BID [facility] Last Admin: 10/02/20 08:26 Dose: 10 units Documented by: Insulin Human Lispro (Insulin Lispro 100 Unit/Ml Insuln.Pen) 0 unit SC ACHS [facility]; Protocol Last Admin: 10/02/20 08:26 Dose: 6 units Documented by: Insulin Human Lispro (Insulin Lispro 100 Unit/Ml Insuln.Pen) 8 unit SC TIDAC [facility] Last Admin: 10/02/20 08:25 Dose: 8 u Documented by: Morphine Sulfate (Morphine 2 Mg/Ml Syringe) 2 mg IV Q4H PRN PRN PRN Reason: Pain Score 6-10 Oxycodone HCl (Oxycodone 5 Mg Tablet) 5 mg PO Q4H PRN PRN PRN Reason: Pain Score 4-5 Prochlorperazine Edisylate (Prochlorperazine 10 Mg/2 Ml Vial) 10 mg IV Q6H PRN PRN PRN Reason: Nausea/Vomiting Last Admin: 10/01/20 10:10 Dose: 10 mg Documented by: Sodium Chloride (0.9% Saline Lock 10 Ml Syringe) 10 - 40 ml IV UD PRN PRN Reason: SALINE FLUSH Last Admin: 10/02/20 06:50 Dose: 10 ml Documented by: STROKE Vital Signs/Narrative: Vital Signs Temp Pulse Resp BP Pulse Ox 10/02/20 08:20 97.4 F L 102 H 16 88/61 L 99 10/02/20 06:19 106 H Medical Necessity - Tobacco Use Smoking Status: Former smoker Assessment/Plan All Active Problems (Last Reviewed 09/25/20 @ 17:19 by Fabricio Shafer) 2019 novel coronavirus–infected pneumonia (NCIP)#8211;infected pneumonia (NCIP) (Acute) Hypotension due to hypovolemia (Acute) Sinus tachycardia by electrocardiography (Acute) Hyponatremia (Acute) Gastroenteritis due to COVID-19 virus (Acute) Acute kidney injury (Acute) Acute renal insufficiency (Acute) Elevated serum creatinine (Acute) Diarrhea (Acute) SARS-associated coronavirus infection (Acute) GI bleed (Acute) 44-year-old Afro-[place] gentleman admitted with nausea, vomiting, dry and mild cough with COVID-19 test positive 1. Acute GI bleed most probably secondary to Eliquis: Patient was empirically started Eliquis full anticoagulation dose based on high D-dimer 4.44. CTPA was not done because of BUN/creatinine elevated 31/1.38. Yesterday patient H&H was stable 13.2/42.9 although mild drop was thought to be hemodilution from IV fluid. Patient had bright red rectal bleed and Eliquis discontinued started on IV fluid Ringer lactate bolus. H&H every [address] Burt is being consulted. Patient is being transferred to ICU. An/Ssn 2 4 Operator consulted. Patient had 80 mg of Protonix and started on 40 g every 12 hourly. PICC line is ordered. Patient has bedside EGD in ICU. EGD shows oozing duodenal ulcer with fat and clot in D2. It seems that patient had duodenal ulcer which bled on anticoagulation, Eliquis. Patient was complaining of vague abdominal pain/discomfort. 2. Acute viral gastroenteritis due to COVID-19: Patient is being admitted on MedSurg. Patient having current GI bleed.Paradoxically, stool for occult blood x2 is negative. Enteric bacteriology panel negative. Stool for lactoferrin positive. Patient on Decadron and remdesivir. Patient had fever 103 Fahrenheit as per EMS. Hypoxic or tachypneic. Chest x-ray shows patchy peripheral infiltrate in right upper and right lower lobes and mid left lung. AP chest x- ray ordered. 3. Acute kidney injury, prerenal etiology with hypotension due to gastroenteritis: Creatinine improved to 0.87 with IV fluid support. Today BUN went up probably due to upper GI bleed. Creatinine normal. Sodium 134. 4. Diabetes mellitus type 2 glucose in BMP is 223 elevated. Accu-Cheks before meals and at bedtime and cover with Humalog sliding scale. Hold Metformin. 10/01: Glucose is controlled, glucose 212. Humalog scheduled 8 units 3 times daily with meals. 10/02: Glucose is high average about 250. On Lantus. Currently patient is n.p.o. therefore insulin sliding scale coverage dose. 5. Hypertension: Patient was hypotensive. Hold amlodipine. VT prophylaxis, moderate risk: Lovenox 40 mg q. twice daily Microbiology Past 72 Hours 10/02/20 06:00 Stool Stool Occult Blood (LINETTE) - Final 10/01/20 14:15 Stool Stool Lactoferrin - Final 10/01/20 14:15 Stool Enteric Bacteriology - Final 10/01/20 14:15 Stool Stool Occult Blood (LINETTE) - Final 09/30/20 Unknown Urine, Random Streptococcus pneumoniae Antigen (M - Final 09/30/20 Unknown Urine, Random Legionella Antigen - Final Laboratory Results 10/01/20 07:05: Blood Type Pending, Antibody Screen Pending, Crossmatch See Detail 10/01/20 11:16: POC Glucose 297 H 10/01/20 17:04: POC Glucose 316 H 10/01/20 21:38: POC Glucose 269 H 10/02/20 06:55: WBC 8.2, RBC 4.62, Hgb 9.8 L, Hct 31.2 L, MCV 67.5 L, MCH 21.2 L , MCHC 31.4 L, RDW Std Deviation 34.3 L, RDW Coeff of Kg 14.5, Plt Count 439, MPV 10.8 10/02/20 06:55: Sodium 134 L, Potassium 3.8, Chloride 98, Carbon Dioxide 29.0, Anion Gap 7, BUN 31 H, Creatinine 0.89, Estim Creat Clear Calc 118.45, Est GFR (MDRD) Af Amer 119, Est GFR (MDRD) Non-Af 98, BUN/Creatinine Ratio 34.9 H, Glucose 243 H, Calcium 8.6, Total Bilirubin 0.50, AST 12 L, ALT 24, Alkaline Phosphatase 36 L, Total Protein 6.6, Albumin 2.6 L, Globulin 4.0, Albumin/Globulin Ratio 0.6 L Inpatient E&M: 71049 Subs Hosp L3
--- NOTE | 2020-10-02 09:11 | PCM.CONS.GEN ---
Problem List (1) GI bleed Status: Acute Qualifiers: GI bleed type/associated pathology: unspecified gastrointestinal hemorrhage type Qualified Code(s): K92.2 - Gastrointestinal hemorrhage, unspecified (2) SARS-associated coronavirus infection Status: Acute Reason for Consult Date of Consultation: 10/02/20 Reason for Consultation: GI bleed History of Present Illness: The patient is a 44 year old M who was recently admitted for Covid. The patient notes that overnight he had a bloody bowel movement and then started to develop worsening diarrhea with blood. He is having minimal abdominal pain at this time. No nausea or vomiting at this time. Patient did have some clear vomiting before admission. The patient was started on blood thinners due to an elevated D-dimer and Covid infection. The patient is never had a GI bleed in the past. Patient is not on any NSAIDs. He is not taking PPI. Past Medical History Past Medical History (Chronic Problems): Chronic Problems (Last Reviewed 09/25/20 @ 17:19 by Fabricio Shafer) History of hypertension (Chronic) History of type 2 diabetes mellitus (Chronic) History of hypercholesterolemia (Chronic) History of obstructive sleep apnea (Chronic) Hyperglycemia due to type 2 diabetes mellitus (Chronic) Allergies No Known Allergies Allergy (Verified 09/30/20 07:58) Home Medications: Ambulatory Orders Medication Instructions Recorded Amlodipine [Norvasc] 5 mg PO DAILY 09/30/20 Metformin HCl 1,000 mg PO BID 09/30/20 Lives: Alone Smoking Status: Former smoker Alcohol: None Drugs: None Review of Systems Constitutional: Reports: Fever. Denies: Anorexia HEENT: Denies: Difficulty Swallowing Cardiovascular: Denies: Chest Pain Respiratory: Reports: Cough, Shortness of Breath Gastrointestinal: Reports: Abdominal Pain, Diarrhea, Hematochezia, Vomiting. Denies: Constipation, Dyspepsia, Hematemesis, Nausea, Melena Genitourinary: Denies: Retention Neurological: Denies: Balance problems Psychiatric: Denies: Anxiety Hematologic/ Lymphatic: Denies: Anemia, Easy Bruising, Easy Bleeding Patient Problems: Active and Suspected Problems (Last Reviewed 09/25/20 @ 17:19 by Fabricio Shafer) 2019 novel coronavirus–infected pneumonia (NCIP)#8211;infected pneumonia (NCIP) (Acute) Hypotension due to hypovolemia (Acute) Sinus tachycardia by electrocardiography (Acute) Hyponatremia (Acute) Gastroenteritis due to COVID-19 virus (Acute) Acute kidney injury (Acute) Acute renal insufficiency (Acute) Elevated serum creatinine (Acute) Diarrhea (Acute) SARS-associated coronavirus infection (Acute) - Physical Exam Vitals/I&O's: Vital Signs Temp Pulse Resp BP Pulse Ox 97.4 F L 102 H 16 88/61 L 99 10/02/20 08:20 10/02/20 08:20 10/02/20 08:20 10/02/20 08:20 10/02/20 08:20 Oxygen Delivery Method Room Air Weight: 350 lb 2.986 oz Body Mass Index (BMI) 46.2 Intake and Output for Last 24 Hours 09/30/20 10/01/20 10/02/20 23:59 23:59 23:59 Intake Total 4350 / 4350 1750 / 1750 1234 / 1234 Output Total 1450 / 1450 3325 / 3325 Balance 2900 / 2900 -1575 / -1575 1234 / 1234 General: Alert, Oriented x3, Cooperative, No apparent distress Neck: No JVD Abdomen: Soft, Non Tender, Non-Distended Skin: No rashes Musculoskeletal: No Muscle Wasting Neurological: Cranial nerves II-XII grossly intact Psych/Mental Status: Normal Affect Microbiology Past 72 Hours 10/02/20 06:00 Stool Stool Occult Blood (LINETTE) - Final 10/01/20 14:15 Stool Stool Lactoferrin - Final 10/01/20 14:15 Stool Enteric Bacteriology - Final 10/01/20 14:15 Stool Stool Occult Blood (LINETTE) - Final 09/30/20 Unknown Urine, Random Streptococcus pneumoniae Antigen (M - Final 09/30/20 Unknown Urine, Random Legionella Antigen - Final Laboratory Results 10/01/20 11:16: POC Glucose 297 H 10/01/20 17:04: POC Glucose 316 H 10/01/20 21:38: POC Glucose 269 H 10/02/20 06:55: WBC 8.2, RBC 4.62, Hgb 9.8 L, Hct 31.2 L, MCV 67.5 L, MCH 21.2 L, MCHC 31.4 L, RDW Std Deviation 34.3 L, RDW Coeff of Kg 14.5, Plt Count 439, MPV 10.8 10/02/20 06:55: Sodium 134 L, Potassium 3.8, Chloride 98, Carbon Dioxide 29.0, Anion Gap 7, BUN 31 H, Creatinine 0.89, Estim Creat Clear Calc 118.45, Est GFR (MDRD) Af Amer 119, Est GFR (MDRD) Non-Af 98, BUN/Creatinine Ratio 34.9 H, Glucose 243 H, Calcium 8.6, Total Bilirubin 0.50, AST 12 L, ALT 24, Alkaline Phosphatase 36 L, Total Protein 6.6, Albumin 2.6 L, Globulin 4.0, Albumin/Globulin Ratio 0.6 L Clinical Impression(s) from Imaging Studies Chest X-Ray 09/30/20 11:33 IMPRESSION: Patchy peripheral infiltrates in the right upper and right lower lobes as well as in the midportion of the left lung. Follow-up is recommended. Electronically Signed: Shmuel Méndez, at 13:31 EST , Service support , Current Medications Acetaminophen (Acetaminophen 325 Mg Tablet) 650 mg PO Q4H PRN PRN PRN Reason: pain, 1-10/ FEVER T >100.4 Last Admin: 09/30/20 14:08 Dose: 650 mg Documented by: Al Hydroxide/Mg Hydroxide (Mag Hydrox/Al Hydrox/Simeth 30 Ml Udc) 30 ml PO Q6H PRN PRN PRN Reason: Gastric Burning Last Admin: 10/01/20 11:27 Dose: 30 ml Documented by: Dexamethasone (Dexamethasone 4 Mg Tablet) 6 mg PO DAILY JOEL Stop: 10/09/20 10:01 Last Admin: 10/02/20 08:27 Dose: 6 mg Documented by: Dextrose (Dextrose 50%-Water 25 Gm/50 Ml Disp.Syrin) 0 gm IV X1 PRN; Protocol PRN Reason: Hypoglycemia Glucagon (Glucagon 1 Mg/Ml Syringe) 1 mg IM .X1 PRN PRN Reason: Hypoglycemia Remdesivir 100 mg/ Sodium (Chloride) 250 mls @ 125 mls/hr IV DAILY JOEL Stop: 10/04/20 11:59 Last Infusion: 10/01/20 13:17 Dose: Infused Documented by: Pantoprazole Sodium 80 mg/ (Sodium Chloride) 100 mls @ 10 mls/hr CONT INF Q10H JOEL Last Admin: 10/02/20 08:03 Dose: 10 mls/hr Documented by: Lactated Ringer's () 1,000 mls @ 999 mls/hr IV .Q1H1M [facility] Stop: 10/02/20 09:15 Last Admin: 10/02/20 09:06 Dose: 999 mls/hr Documented by: Lactated Ringer's () 1,000 mls @ 125 mls/hr IV .Q8H [facility] Insulin Glargine (Insulin Glargine 100 Units/Ml Pen) 10 units SC BID [facility] Last Admin: 10/02/20 08:26 Dose: 10 units Documented by: Insulin Human Lispro (Insulin Lispro 100 Unit/Ml Insuln.Pen) 0 unit SC ACHS [facility]; Protocol Last Admin: 10/02/20 08:26 Dose: 6 units Documented by: Insulin Human Lispro (Insulin Lispro 100 Unit/Ml Insuln.Pen) 8 unit SC TIDAC [facility] Last Admin: 10/02/20 08:25 Dose: 8 u Documented by: Morphine Sulfate (Morphine 2 Mg/Ml Syringe) 2 mg IV Q4H PRN PRN PRN Reason: Pain Score 6-10 Oxycodone HCl (Oxycodone 5 Mg Tablet) 5 mg PO Q4H PRN PRN PRN Reason: Pain Score 4-5 Prochlorperazine Edisylate (Prochlorperazine 10 Mg/2 Ml Vial) 10 mg IV Q6H PRN PRN PRN Reason: Nausea/Vomiting Last Admin: 10/01/20 10:10 Dose: 10 mg Documented by: Sodium Chloride (0.9% Saline Lock 10 Ml Syringe) 10 - 40 ml IV UD PRN PRN Reason: SALINE FLUSH Last Admin: 10/02/20 06:50 Dose: 10 ml Documented by: Assessment/Plan All Active Problems (Last Reviewed 09/25/20 @ 17:19 by Fabricio Shafer) 2019 novel coronavirus–infected pneumonia (NCIP)#8211;infected pneumonia (NCIP) (Acute) Hypotension due to hypovolemia (Acute) Sinus tachycardia by electrocardiography (Acute) Hyponatremia (Acute) Gastroenteritis due to COVID-19 virus (Acute) Acute kidney injury (Acute) Acute renal insufficiency (Acute) Elevated serum creatinine (Acute) Diarrhea (Acute) SARS-associated coronavirus infection (Acute) GI bleed (Acute) 44-year-old male with GI bleed 1. The patient is having a copious amount of bloody diarrhea at this time. He is not having any nausea or vomiting at this time but he did have vomiting before admission. The patient is also Covid and was started on anticoagulant for an elevated D-dimer. Patient has patchy infiltrates on chest x-ray. The patient is also hypotensive this morning which is a new finding. 2. At this time I recommend the patient be moved to the ICU for closer monitoring and possible transfusion. Recommend monitoring hemoglobin every 4 and keep the patient n.p.o. Once the patient is resuscitated and able to undergo a procedure I will perform a bedside EGD. I discussed this with the patient he is agreeable. Patient has been started on a PPI and his blood thinner has been held. I explained endoscopy in detail to the patient. I explained the risks including but not limited to stroke or heart attack with anesthesia, perforation of the GI tract, bleeding, infection. I explained that any of these could necessitate further emergency surgery. The patient understands and all questions were answered sufficiently. The patient wishes to proceed with procedure. Neil Burt MD Pager: [facility] [address] [place] [address] [address] [place] [address] Office:
--- NOTE | 2020-10-02 09:22 | CON.PCM_ITS ---
Reason for Consult Date of Consultation: 10/02/20 Reason for Consultation: Acute blood loss anemia History of Present Illness: The patient is a 44-year-old male, with a history as outlined below, who initially presented to the emergency department on September 30 with complaints of fever, body aches, cough and shortness of breath. The symptoms had initially began 1 to 2 weeks prior to his emergency department evaluation. The patient had tested positive for coronavirus on September 25. The patient denies any history of prior venous thromboembolic disease. He has not recently been immobilized. On presentation to the emergency department, the patient was noted to be afebrile but was tachycardic. He was maintaining appropriate oxygen saturations on room air. Initial laboratory evaluation revealed no evidence of a leukocytosis. D-dimer was elevated to 4.4. Chemistry profile was notable for a sodium of 127 and creatinine of 1.38. The patient was subsequently admitted to the coronavirus cohort unit. He was seen in consultation by infectious diseases. The patient did receive supplemental IV fluid hydration and was started on remdesivir and Decadron. Given his elevated D-dimer level, the patient was also started on Eliquis. Based upon a Wells score for PE, the patient would be considered low risk. In addition, the patient has remained stable from an oxygenation standpoint on room air throughout his hospital course. Overnight, the patient developed diarrhea with kelin blood. General surgery was consulted to evaluate the patient. Past Medical History Past Medical History (Chronic Problems): Chronic Problems (Last Reviewed 09/25/20 @ 17:19 by Fabricio Shafer) History of hypertension (Chronic) History of type 2 diabetes mellitus (Chronic) History of hypercholesterolemia (Chronic) History of obstructive sleep apnea (Chronic) Hyperglycemia due to type 2 diabetes mellitus (Chronic) Allergies No Known Allergies Allergy (Verified 09/30/20 07:58) Home Medications: Ambulatory Orders Medication Instructions Recorded Amlodipine [Norvasc] 5 mg PO DAILY 09/30/20 Metformin HCl 1,000 mg PO BID 09/30/20 Lives: Alone Smoking Status: Former smoker Alcohol: None Drugs: None Review of Systems Constitutional: Reports: Malaise, Fatigue. Denies: Chills, Fever Eyes: Denies: Blurred vision, Double vision HEENT: Denies: Head Aches, Sinus Congestion, Sinus Drainage Cardiovascular: Denies: Chest Pain, Palpitations Respiratory: Reports: Cough. Denies: Shortness of Breath Gastrointestinal: Reports: Diarrhea, Hematochezia. Denies: Abdominal Pain Genitourinary: Denies: Dysuria Musculoskeletal: Denies: Joint Pain, Joint Tenderness Skin: Denies: Rash, Wounds Neurological: Denies: Numbness, Tingling, Focal weakness Psychiatric: Denies: Anxiety, Depression, Homicidal Ideations, Suicidal Ideations Hematologic/ Lymphatic: Reports: Anemia. Denies: Hx of blood clot, Hx of blood transfusion Patient Problems: Active and Suspected Problems (Last Reviewed 09/25/20 @ 17:19 by Fabricio Shafer) 2019 novel coronavirus–infected pneumonia (NCIP)#8211;infected pneumonia (NCIP) (Acute) Hypotension due to hypovolemia (Acute) Sinus tachycardia by electrocardiography (Acute) Hyponatremia (Acute) Gastroenteritis due to COVID-19 virus (Acute) Acute kidney injury (Acute) Acute renal insufficiency (Acute) Elevated serum creatinine (Acute) Diarrhea (Acute) SARS-associated coronavirus infection (Acute) GI bleed (Acute) Objective: The patient's most recent lab work, culture data and imaging studies have all been personally reviewed. - Physical Exam Vitals/I&O's: Vital Signs Temp Pulse Resp BP Pulse Ox 97.4 F L 102 H 16 88/61 L 99 10/02/20 08:20 10/02/20 08:20 10/02/20 08:20 10/02/20 08:20 10/02/20 08:20 Oxygen Delivery Method Room Air Weight: 350 lb 2.986 oz Body Mass Index (BMI) 46.2 Intake and Output for Last 24 Hours 09/30/20 10/01/20 10/02/20 23:59 23:59 23:59 Intake Total 4350 / 4350 1750 / 1750 1234 / 1234 Output Total 1450 / 1450 3325 / 3325 Balance 2900 / 2900 -1575 / -1575 1234 / 1234 General: Alert, Oriented x3, Cooperative, No apparent distress, - - Morbidly obese. Sitting in bedside recliner. HEENT: Atraumatic, PERRLA, Normocephalic Oral: No Gingival or Mucosal Lesions/ Ulcerations Neck: Supple, No Nodes, Trachea Midline Lungs: Normal air movement, Tachypneic Cardiovascular: Normal S1, Normal S2, No murmurs, Tachycardic Abdomen: Bowel Sounds Present, Soft, Non Tender, Obese Extremities: No clubbing, No cyanosis, No edema Skin: No breakdown Musculoskeletal: No Tenderness to Palpation of Joints or Extremities Lymphatic: No Cervical, Supraclavicular, or Inguinal Adenopathy Neurological: Cranial nerves II-XII grossly intact, Neuro grossly intact Psych/Mental Status: Normal Affect, Appropriate Labs (Last 48 Hours) 09/30/20 09/30/20 09/30/20 08:30 08:30 08:30 WBC 6.5 RBC 7.73 H Hgb 15.9 Hct 52.8 MCV 68.3 L MCH 20.6 L MCHC 30.1 L RDW Std Deviation 35.3 RDW Coeff of Kg 16.8 H Plt Count 340 MPV 10.6 Immature Gran % (Auto) 0.500 Neut % (Auto) 72.6 H Lymph % (Auto) 18.1 L [place] % (Auto) 8.5 Eos % (Auto) 0.0 Baso % (Auto) 0.3 Absolute Neuts (auto) 4.7 Absolute Lymphs (auto) 1.17 Nucleated RBC % 0 Atypical Lymphocytes 1+ Platelet Estimate ADEQUATE RBC Morphology NORM C+C D-Dimer Quant (PE/DVT) 4.44 H* Sodium Potassium Chloride Carbon Dioxide Anion Gap BUN Creatinine Estim Creat Clear Calc Est GFR (MDRD) Af Amer Est GFR (MDRD) Non-Af BUN/Creatinine Ratio Glucose Calcium Phosphorus 3.0 Ferritin 419 H Total Bilirubin AST ALT Alkaline Phosphatase Lactate Dehydrogenase 353 H C-React Prot Ext Range 63.30 H Total Protein Albumin Globulin Albumin/Globulin Ratio Urine Color Urine Clarity Urine pH Ur Specific [place] Urine Protein Urine Glucose (UA) Urine Ketones Urine Occult Blood Urine Nitrite Urine Bilirubin Urine Urobilinogen Ur Leukocyte Esterase Urine RBC Urine WBC Ur Squamous Epith Cells Urine Bacteria Urine Mucus POC Glucose Blood Type Antibody Screen Crossmatch 09/30/20 09/30/20 09/30/20 12:00 16:29 20:40 WBC RBC Hgb Hct MCV MCH MCHC RDW Std Deviation RDW Coeff of Kg Plt Count MPV Immature Gran % (Auto) Neut % (Auto) Lymph % (Auto) [place] % (Auto) Eos % (Auto) Baso % (Auto) Absolute Neuts (auto) Absolute Lymphs (auto) Nucleated RBC % Atypical Lymphocytes Platelet Estimate RBC Morphology D-Dimer Quant (PE/DVT) Sodium Potassium Chloride Carbon Dioxide Anion Gap BUN Creatinine Estim Creat Clear Calc Est GFR (MDRD) Af Amer Est GFR (MDRD) Non-Af BUN/Creatinine Ratio Glucose Calcium Phosphorus Ferritin Total Bilirubin AST ALT Alkaline Phosphatase Lactate Dehydrogenase C-React Prot Ext Range Total Protein Albumin Globulin Albumin/Globulin Ratio Urine Color Yellow Urine Clarity Sl. Cloudy Urine pH 6.0 Ur Specific [place] 1.020 Urine Protein 100 H Urine Glucose (UA) Normal Urine Ketones 15 H Urine Occult Blood 25 H Urine Nitrite Negative Urine Bilirubin Negative Urine Urobilinogen Normal Ur Leukocyte Esterase Negative Urine RBC 0-5 SEEN Urine WBC 0 SEEN Ur Squamous Epith Cells 0-5 SEEN Urine Bacteria 1+ Urine Mucus 0 SEEN POC Glucose 368 H 352 H Blood Type Antibody Screen Crossmatch 10/01/20 10/01/20 10/01/20 06:03 07:05 07:05 WBC 8.2 RBC 6.25 H Hgb 13.2 Hct 42.9 MCV 68.6 L MCH 21.1 L MCHC 30.8 L RDW Std Deviation 35.5 RDW Coeff of Kg 15.6 H Plt Count 386 MPV 11.2 Immature Gran % (Auto) Neut % (Auto) Lymph % (Auto) [place] % (Auto) Eos % (Auto) Baso % (Auto) Absolute Neuts (auto) Absolute Lymphs (auto) Nucleated RBC % Atypical Lymphocytes Platelet Estimate RBC Morphology D-Dimer Quant (PE/DVT) Sodium 134 L Potassium 3.6 Chloride 102 Carbon Dioxide 26.0 Anion Gap 6 BUN 18 Creatinine 0.87 Estim Creat Clear Calc 121.18 Est GFR (MDRD) Af Amer 121 Est GFR (MDRD) Non-Af 100 BUN/Creatinine Ratio 20.7 H Glucose 200 H Calcium 8.7 Phosphorus Ferritin Total Bilirubin 0.60 AST 19 ALT 28 Alkaline Phosphatase 47 Lactate Dehydrogenase C-React Prot Ext Range Total Protein 7.7 Albumin 2.8 L Globulin 4.9 H Albumin/Globulin Ratio 0.6 L Urine Color Urine Clarity Urine pH Ur Specific [place] Urine Protein Urine Glucose (UA) Urine Ketones Urine Occult Blood Urine Nitrite Urine Bilirubin Urine Urobilinogen Ur Leukocyte Esterase Urine RBC Urine WBC Ur Squamous Epith Cells Urine Bacteria Urine Mucus POC Glucose 212 H Blood Type Antibody Screen Crossmatch 10/01/20 10/01/20 10/01/20 07:05 11:16 17:04 WBC RBC Hgb Hct MCV MCH MCHC RDW Std Deviation RDW Coeff of Kg Plt Count MPV Immature Gran % (Auto) Neut % (Auto) Lymph % (Auto) [place] % (Auto) Eos % (Auto) Baso % (Auto) Absolute Neuts (auto) Absolute Lymphs (auto) Nucleated RBC % Atypical Lymphocytes Platelet Estimate RBC Morphology D-Dimer Quant (PE/DVT) Sodium Potassium Chloride Carbon Dioxide Anion Gap BUN Creatinine Estim Creat Clear Calc Est GFR (MDRD) Af Amer Est GFR (MDRD) Non-Af BUN/Creatinine Ratio Glucose Calcium Phosphorus Ferritin Total Bilirubin AST ALT Alkaline Phosphatase Lactate Dehydrogenase C-React Prot Ext Range Total Protein Albumin Globulin Albumin/Globulin Ratio Urine Color Urine Clarity Urine pH Ur Specific [place] Urine Protein Urine Glucose (UA) Urine Ketones Urine Occult Blood Urine Nitrite Urine Bilirubin Urine Urobilinogen Ur Leukocyte Esterase Urine RBC Urine WBC Ur Squamous Epith Cells Urine Bacteria Urine Mucus POC Glucose 297 H 316 H Blood Type B POSITIVE Antibody Screen NEGATIVE Crossmatch See Detail 10/01/20 10/02/20 10/02/20 21:38 06:55 06:55 WBC 8.2 RBC 4.62 Hgb 9.8 L Hct 31.2 L MCV 67.5 L MCH 21.2 L MCHC 31.4 L RDW Std Deviation 34.3 L RDW Coeff of Kg 14.5 Plt Count 439 MPV 10.8 Immature Gran % (Auto) Neut % (Auto) Lymph % (Auto) [place] % (Auto) Eos % (Auto) Baso % (Auto) Absolute Neuts (auto) Absolute Lymphs (auto) Nucleated RBC % Atypical Lymphocytes Platelet Estimate RBC Morphology D-Dimer Quant (PE/DVT) Sodium 134 L Potassium 3.8 Chloride 98 Carbon Dioxide 29.0 Anion Gap 7 BUN 31 H Creatinine 0.89 Estim Creat Clear Calc 118.45 Est GFR (MDRD) Af Amer 119 Est GFR (MDRD) Non-Af 98 BUN/Creatinine Ratio 34.9 H Glucose 243 H Calcium 8.6 Phosphorus Ferritin Total Bilirubin 0.50 AST 12 L ALT 24 Alkaline Phosphatase 36 L Lactate Dehydrogenase C-React Prot Ext Range Total Protein 6.6 Albumin 2.6 L Globulin 4.0 Albumin/Globulin Ratio 0.6 L Urine Color Urine Clarity Urine pH Ur Specific [place] Urine Protein Urine Glucose (UA) Urine Ketones Urine Occult Blood Urine Nitrite Urine Bilirubin Urine Urobilinogen Ur Leukocyte Esterase Urine RBC Urine WBC Ur Squamous Epith Cells Urine Bacteria Urine Mucus POC Glucose 269 H Blood Type Antibody Screen Crossmatch Microbiology 10/02/20 06:00 Stool Stool Occult Blood (LINETTE) - Final 10/01/20 14:15 Stool Stool Lactoferrin - Final 10/01/20 14:15 Stool Enteric Bacteriology - Final 10/01/20 14:15 Stool Stool Occult Blood (LINETTE) - Final 09/30/20 Unknown Urine, Random Streptococcus pneumoniae Antigen (M - Final 09/30/20 Unknown Urine, Random Legionella Antigen - Final Clinical Impression(s) from Imaging Studies Chest X-Ray 09/30/20 11:33 IMPRESSION: Patchy peripheral infiltrates in the right upper and right lower lobes as well as in the midportion of the left lung. Follow-up is recommended. Electronically Signed: Shmuel Méndez, at 13:31 EST , Service support , Chest X-Ray 10/02/20 08:55 IMPRESSION: Since prior study, there has been improved aeration of both lungs with residual infiltrate in the lateral aspect of the right hemithorax. Electronically Signed: Shmuel Méndez, at 9:37 EST , Service support , Current Medications Acetaminophen (Acetaminophen 325 Mg Tablet) 650 mg PO Q4H PRN PRN PRN Reason: pain, 1-10/ FEVER T >100.4 Last Admin: 09/30/20 14:08 Dose: 650 mg Documented by: Al Hydroxide/Mg Hydroxide (Mag Hydrox/Al Hydrox/Simeth 30 Ml Udc) 30 ml PO Q6H PRN PRN PRN Reason: Gastric Burning Last Admin: 10/01/20 11:27 Dose: 30 ml Documented by: Dexamethasone (Dexamethasone 4 Mg Tablet) 6 mg PO DAILY JOEL Stop: 10/09/20 10:01 Last Admin: 10/02/20 08:27 Dose: 6 mg Documented by: Dextrose (Dextrose 50%-Water 25 Gm/50 Ml Disp.Syrin) 0 gm IV X1 PRN; Protocol PRN Reason: Hypoglycemia Glucagon (Glucagon 1 Mg/Ml Syringe) 1 mg IM .X1 PRN PRN Reason: Hypoglycemia Remdesivir 100 mg/ Sodium (Chloride) 250 mls @ 125 mls/hr IV DAILY [facility] Stop: 10/04/20 11:59 Last Infusion: 10/01/20 13:17 Dose: Infused Documented by: Pantoprazole Sodium 80 mg/ (Sodium Chloride) 100 mls @ 10 mls/hr CONT INF Q10H [facility] Last Admin: 10/02/20 08:03 Dose: 10 mls/hr Documented by: Lactated Ringer's () 1,000 mls @ 125 mls/hr IV .Q8H [facility] Insulin Glargine (Insulin Glargine 100 Units/Ml Pen) 10 units SC BID [facility] Last Admin: 10/02/20 08:26 Dose: 10 units Documented by: Insulin Human Lispro (Insulin Lispro 100 Unit/Ml Insuln.Pen) 0 unit SC ACHS [facility]; Protocol Last Admin: 10/02/20 08:26 Dose: 6 units Documented by: Insulin Human Lispro (Insulin Lispro 100 Unit/Ml Insuln.Pen) 8 unit SC TIDAC [facility] Last Admin: 10/02/20 08:25 Dose: 8 u Documented by: Morphine Sulfate (Morphine 2 Mg/Ml Syringe) 2 mg IV Q4H PRN PRN PRN Reason: Pain Score 6-10 Oxycodone HCl (Oxycodone 5 Mg Tablet) 5 mg PO Q4H PRN PRN PRN Reason: Pain Score 4-5 Prochlorperazine Edisylate (Prochlorperazine 10 Mg/2 Ml Vial) 10 mg IV Q6H PRN PRN PRN Reason: Nausea/Vomiting Last Admin: 10/01/20 10:10 Dose: 10 mg Documented by: Sodium Chloride (0.9% Saline Lock 10 Ml Syringe) 10 - 40 ml IV UD PRN PRN Reason: SALINE FLUSH Last Admin: 10/02/20 06:50 Dose: 10 ml Documented by: Assessment/Plan Active and Suspected Problems (Last Reviewed 09/25/20 @ 17:19 by Fabricio Shafer) 2019 novel coronavirus–infected pneumonia (NCIP)#8211;infected pneumonia (NCIP) (Acute) Hypotension due to hypovolemia (Acute) Sinus tachycardia by electrocardiography (Acute) Hyponatremia (Acute) Gastroenteritis due to COVID-19 virus (Acute) Acute kidney injury (Acute) Acute renal insufficiency (Acute) Elevated serum creatinine (Acute) Diarrhea (Acute) SARS-associated coronavirus infection (Acute) GI bleed (Acute) RECOMMENDATIONS: 1. Send type and screen. Monitor H&H closely and transfuse if hemoglobin drops below 7 g/dL. 2. Continue PPI therapy. 3. Low suspicion for PE. No need for further anticoagulation. 4. Establish and maintain 2 large-bore peripheral IVs. 5. Continue remdesivir. Monitor liver and renal function accordingly. 6. Stop steroids over concerns for GI bleed. IMPRESSIONS: 1. Acute blood loss anemia The patient did develop bloody diarrhea overnight in the setting of systemic anticoagulation on Eliquis. The patient denied any prior GI bleeding. Hemoglobin did drop from 13 to 9.8 g/dL. However, at the present time, he is hemodynamically stable. Recommend sending type and screen. Transfusion of blood products can be entertained if hemoglobin continues to drop. The patient will be continued on PPI therapy. Given that the patient has no supplemental oxygen requirement and has a low Wells PE score, I do not feel that any future anticoagulation is necessary. General surgery is following with plans for endoscopy this afternoon. 2. COVID-19 pneumonia The patient is currently maintaining appropriate oxygen saturations on room air. Agree with continuing current supportive measures including remdesivir as ordered. 3. Morbid obesity/hypertension/diabetes mellitus Complicates care, management, recovery and prognosis. Hold antihypertensives for now. Continue Lantus and sliding scale insulin coverage. This note was generated with [employer] dictation software. It may contain incorrect words, spelling, and punctuation that were not noted in checking the note before signing. Inpatient E&M: 83594 Init Hosp L3
--- NOTE | 2020-10-02 14:25 | PCM.OP.PRO ---
Procedure Report Date of Procedure: 10/02/20 CONSCIOUS SEDATION REPORT DATE OF SERVICE: October 02, 2020 BRIEF HISTORY OF PRESENT ILLNESS: The patient is a 44-year-old male who presented to [facility] with COVID-19 pneumonia. The patient was started on systemic anticoagulation and developed upper GI bleeding. He was moved to the intensive care unit and I was asked to provide conscious sedation support during an upper endoscopy. The patient denied any previous anesthetic complications. He has no known drug allergies. PHYSICAL EXAMINATION: VITAL SIGNS: Reviewed and were acceptable. GENERAL: The patient is an obese -I[place] male, in no apparent distress, speaking in full sentences. HEENT: Normocephalic, atraumatic. Mucous membranes are moist and pink. Good mouth opening noted. Trachea is midline. Good neck mobility. CHEST: Regular rate and rhythm. No murmurs, rubs or gallops were noted. LUNGS: Clear to auscultation bilaterally without appreciable wheezes, rales or rhonchi. ABDOMEN: Soft, nontender, nondistended. Positive bowel sounds. EXTREMITIES: There is no clubbing, cyanosis or edema. ASA Class: II DESCRIPTION OF PROCEDURE: After confirmation of informed consent, the patient's anesthesia plan was reviewed in detail. Propofol was chosen. Risks and benefits were reviewed and the patient agreed to proceed. At 1407, the patient was given his first bolus of propofol. In total, the patient required 200 mg of propofol throughout the entire procedure to achieve and maintain an appropriate level of sedation. Upper endoscopy was successfully completed by Dr. Burt at the bedside. The patient was monitored until 1425, at which time, he reached his baseline mental status and function. The patient tolerated the procedure well. COMPLICATIONS: None ESTIMATED BLOOD LOSS: None RECOMMENDATIONS: Okay to recover in usual fashion. Procedure was performed independent of initial consultation, billed separately, on the same date. [id number]: Other Procedure See Report - [id number]
--- NOTE | 2020-10-02 14:40 | OP.EGD_ITS ---
Patient Name: Yohana Mariscal Procedure Date: 10/02/2020 1:55 PM Date of : 1975 Age: 44 Procedure: Upper GI endoscopy Indications: Hematochezia Providers: Neil Burt MD Medicines: Monitored Anesthesia Care Patient Profile: This is a 44 year old male. Refer to note in patient chart for documentation of history and physical. Complications: No immediate complications. Estimated blood loss: Minimal. Procedure: Pre-Anesthesia Assessment: - Prior to the procedure, a History and Physical was performed, and patient medications and allergies were reviewed. The patient's tolerance of previous anesthesia was also reviewed. The risks and benefits of the procedure and the sedation options and risks were discussed with the patient. All questions were answered, and informed consent was obtained. Prior Anticoagulants: The patient has taken Eliquis (apixaban), last dose was 1 day prior to procedure. After reviewing the risks and benefits, the patient was deemed in satisfactory condition to undergo the procedure. After obtaining informed consent, the endoscope was passed under direct vision. Throughout the procedure, the patient's blood pressure, pulse, and oxygen saturations were monitored continuously. The gastroscope was introduced through the mouth, and advanced to the fourth part of duodenum. The upper GI endoscopy was accomplished without difficulty. The patient tolerated the procedure well. Scope In: Scope Out: Findings: The esophagus was normal. The stomach was normal. One oozing cratered duodenal ulcer with adherent clot was found in the second portion of the duodenum. Impression: - Normal esophagus. - Normal stomach. - One oozing duodenal ulcer with adherent clot. - No specimens collected. Recommendation: - Clear liquid diet. - Continue present medications. Procedure Code(s): --- Professional --- 88997, Esophagogastroduodenoscopy, flexible, transoral; diagnostic, including collection of specimen(s) by brushing or washing, when performed (separate procedure) Diagnosis Code(s): --- Professional --- K26.4, Chronic or unspecified duodenal ulcer with hemorrhage K92.1, Melena (includes Hematochezia) CPT copyright 2017 [employer]. All rights reserved. The codes documented in this report are preliminary and upon security compliance specialist review may be revised to meet current compliance requirements. Neil Burt MD 10/02/2020 2:40:10 PM This report has been signed electronically. Number of Addenda: 0 Note Initiated On: 10/02/2020 1:55 PM
--- NOTE | 2020-10-02 14:40 | OP.CCLET_ITS ---
10/02/2020 Maria Luisa Sy [address] [id number] Re : Upper GI endoscopy procedure for Yohana Mariscal Dear Dr. Sy This procedure was performed on Friday, October 02, 2020. My impressions and recommendations are as follows: Impressions : - Normal esophagus. - Normal stomach. - One oozing duodenal ulcer with adherent clot. - No specimens collected. Recommendations : - Clear liquid diet. - Continue present medications. My findings are described in the full procedure note, which is enclosed. If I can be of further assistance, please feel free to contact me at Doctor phone number(s): , Work: . Sincerely, Neil Burt MD 10/02/2020 2:40:10 PM This report has been signed electronically.
--- NOTE | 2020-10-02 14:41 | PCM.PN.BLA ---
Progress Note Patient had a bedside EGD. The patient did not have any active bleeding in the stomach. The patient did have a duodenal ulcer with adherent clot with no active bleeding only some slow oozing. The patient may have a clear liquid diet and continue IV PPI twice daily. I recommend that the patient stop his steroids and blood thinner. Recommend rechecking hemoglobin after transfusion and again in the morning. Neil Burt MD Pager: [facility] [address] [place] [address] [address] [place] [address] Office: [facility] Vital Signs/Narrative: Vital Signs Temp Pulse Resp BP BP Pulse Ox 10/02/20 12:22 97.4 F L 107 H 22 H 118/65 98 10/02/20 12:07 97.4 F L 102 H 21 H 102/72 94 10/02/20 12:00 97.0 F L 103 H 22 H 97/42 L 96 10/02/20 11:50 94 10/02/20 11:49 102 H 10/02/20 11:45 105 H 24 H 103/71 88 10/02/20 11:36 97.0 F L 121 H 28 H 109/71 95
[2020-10-02 14:55] LABS: Bedside Glucose 273 mg/dL (70-110)
[2020-10-02 16:40] LABS: Bedside Glucose 305 mg/dL (70-110)
--- NOTE | 2020-10-02 16:49 | NURSING ---
pt had EGD at bedside. Start time was 1407. 200mg of propofol given through out the procedure. end time was 1425. pt is stable. Endo staff charted time out and procedure.
[2020-10-02] MEDS: Lactated Ringers 1,000 ML 125 ML IV (22:28)
[2020-10-02 23:23] LABS: Hematocrit 27.7 % (40-54); Hemoglobin 8.9 g/dL (13.0-16.5)
[2020-10-03] VITALS (28 sets, daily range): BP systolic 117–170; BP diastolic 58–106; PULSE 80–111; RESP 14–27; TEMP 36.1–37.2; O2SAT 90–98
[2020-10-03 01:05] LABS: Bedside Glucose 318 mg/dL (70-110)
--- NOTE | 2020-10-03 01:23 | PN_ITS ---
Progress Note Overnight, nurse reported the patient continued to have large bloody bowel movements with clots. Pre Hemoglobin Transfusion was 9.8 and 1 hour po sttransfusion was 8.9. We will give another units of blood. Keep n.p.o. Will discuss withe general surgeon [facility] Vital Signs/Narrative: Vital Signs Temp Pulse Resp BP BP Pulse Ox 10/02/20 23:00 88 13 133/74 H 95 10/02/20 22:00 87 15 127/79 H 96 10/02/20 21:28 97.2 F L 99 12 116/78 94
--- NOTE | 2020-10-03 05:43 | PN_ITS ---
Subjective: The patient was seen and examined at the bedside this morning. Events from the last 24 hours have been reviewed. The patient is currently afebrile, hemodynamically stable and maintaining appropriate oxygen saturations on room air. Overnight, the patient continued to have bloody bowel movements. To date, the patient has been transfused a total of 3 units of packed red blood cells. He denies any shortness of breath. Objective: The patient's most recent lab work, culture data and imaging studies have all been personally reviewed. General: Alert, Cooperative, No apparent distress HEENT: Atraumatic, PERRLA, Normocephalic Oral: Moist Mucosa, No Gingival or Mucosal Lesions/ Ulcerations Neck: Supple, No Nodes, Trachea Midline Lungs: No rhonchi, No wheeze, No rales, Diminished Cardiovascular: Regular rate, Regular Rhythm Abdomen: Bowel Sounds Present, Soft, Non Tender, Obese Extremities: No clubbing, No cyanosis, No edema Skin: No breakdown Musculoskeletal: No Tenderness to Palpation of Joints or Extremities, No Muscle Wasting Lymphatic: No Cervical, Supraclavicular, or Inguinal Adenopathy Neurological: Cranial nerves II-XII grossly intact, Neuro grossly intact Psych/Mental Status: Alert and oriented to time, place, person, mood and affect Vital Signs Temp Pulse Resp BP Pulse Ox 97.0 F L 85 17 152/75 H 93 10/03/20 02:29 10/03/20 05:00 10/03/20 05:00 10/03/20 05:00 10/03/20 05:00 Oxygen Flow Rate (L/min) 1 Oxygen Delivery Method Room Air Weight: 323 lb 10.217 oz Body Mass Index (BMI) 46.2 Intake and Output for Last 24 Hours 10/01/20 10/02/20 10/03/20 23:59 23:59 23:59 Intake Total 1750 / 1750 3624 / 3624 0 / 0 Output Total 3325 / 3325 1100 / 1750 650 / 650 Balance -1575 / -1575 2524 / 1874 -650 / -650 Labs (Last 48 Hours) 10/01/20 10/01/20 10/01/20 06:03 07:05 07:05 WBC 8.2 RBC 6.25 H Hgb 13.2 Hct 42.9 MCV 68.6 L MCH 21.1 L MCHC 30.8 L RDW Std Deviation 35.5 RDW Coeff of Kg 15.6 H Plt Count 386 MPV 11.2 Sodium 134 L Potassium 3.6 Chloride 102 Carbon Dioxide 26.0 Anion Gap 6 BUN 18 Creatinine 0.87 Estim Creat Clear Calc 121.18 Est GFR (MDRD) Af Amer 121 Est GFR (MDRD) Non-Af 100 BUN/Creatinine Ratio 20.7 H Glucose 200 H Calcium 8.7 Total Bilirubin 0.60 AST 19 ALT 28 Alkaline Phosphatase 47 Total Protein 7.7 Albumin 2.8 L Globulin 4.9 H Albumin/Globulin Ratio 0.6 L POC Glucose 212 H Blood Type Antibody Screen Crossmatch 10/01/20 10/01/20 10/01/20 07:05 07:05 11:16 WBC RBC Hgb Hct MCV MCH MCHC RDW Std Deviation RDW Coeff of Kg Plt Count MPV Sodium Potassium Chloride Carbon Dioxide Anion Gap BUN Creatinine Estim Creat Clear Calc Est GFR (MDRD) Af Amer Est GFR (MDRD) Non-Af BUN/Creatinine Ratio Glucose Calcium Total Bilirubin AST ALT Alkaline Phosphatase Total Protein Albumin Globulin Albumin/Globulin Ratio POC Glucose 297 H Blood Type B POSITIVE Antibody Screen NEGATIVE Crossmatch See Detail See Detail 10/01/20 10/01/20 10/02/20 17:04 21:38 06:55 WBC 8.2 RBC 4.62 Hgb 9.8 L Hct 31.2 L MCV 67.5 L MCH 21.2 L MCHC 31.4 L RDW Std Deviation 34.3 L RDW Coeff of Kg 14.5 Plt Count 439 MPV 10.8 Sodium Potassium Chloride Carbon Dioxide Anion Gap BUN Creatinine Estim Creat Clear Calc Est GFR (MDRD) Af Amer Est GFR (MDRD) Non-Af BUN/Creatinine Ratio Glucose Calcium Total Bilirubin AST ALT Alkaline Phosphatase Total Protein Albumin Globulin Albumin/Globulin Ratio POC Glucose 316 H 269 H Blood Type Antibody Screen Crossmatch 10/02/20 10/02/20 10/02/20 06:55 13:40 16:07 WBC RBC Hgb Hct MCV MCH MCHC RDW Std Deviation RDW Coeff of Kg Plt Count MPV Sodium 134 L Potassium 3.8 Chloride 98 Carbon Dioxide 29.0 Anion Gap 7 BUN 31 H Creatinine 0.89 Estim Creat Clear Calc 118.45 Est GFR (MDRD) Af Amer 119 Est GFR (MDRD) Non-Af 98 BUN/Creatinine Ratio 34.9 H Glucose 243 H Calcium 8.6 Total Bilirubin 0.50 AST 12 L ALT 24 Alkaline Phosphatase 36 L Total Protein 6.6 Albumin 2.6 L Globulin 4.0 Albumin/Globulin Ratio 0.6 L POC Glucose 273 H 305 H Blood Type Antibody Screen Crossmatch 10/02/20 10/02/20 21:22 23:15 WBC RBC Hgb 8.9 L Hct 27.7 L MCV MCH MCHC RDW Std Deviation RDW Coeff of Kg Plt Count MPV Sodium Potassium Chloride Carbon Dioxide Anion Gap BUN Creatinine Estim Creat Clear Calc Est GFR (MDRD) Af Amer Est GFR (MDRD) Non-Af BUN/Creatinine Ratio Glucose Calcium Total Bilirubin AST ALT Alkaline Phosphatase Total Protein Albumin Globulin Albumin/Globulin Ratio POC Glucose 318 H Blood Type Antibody Screen Crossmatch Microbiology 10/02/20 06:00 Stool Stool Occult Blood (LINETTE) - Final 10/01/20 14:15 Stool Stool Lactoferrin - Final 10/01/20 14:15 Stool Enteric Bacteriology - Final 10/01/20 14:15 Stool Stool Occult Blood (LINETTE) - Final Clinical Impression(s) from Imaging Studies Chest X-Ray 09/30/20 11:33 IMPRESSION: Patchy peripheral infiltrates in the right upper and right lower lobes as well as in the midportion of the left lung. Follow-up is recommended. Electronically Signed: Shmuel Méndez, at 13:31 EST , Service support , Chest X-Ray 10/02/20 08:55 IMPRESSION: Since prior study, there has been improved aeration of both lungs with residual infiltrate in the lateral aspect of the right hemithorax. Electronically Signed: Shmuel Méndez, at 9:37 EST , Service support , Medical Necessity - Tobacco Use Smoking Status: Former smoker Assessment/Plan All Active Problems (Last Reviewed 09/25/20 @ 17:19 by Fabricio Shafer) 2019 novel coronavirus–infected pneumonia (NCIP)#8211;infected pneumonia (NCIP) (Acute) Hypotension due to hypovolemia (Acute) Sinus tachycardia by electrocardiography (Acute) Hyponatremia (Acute) Gastroenteritis due to COVID-19 virus (Acute) Acute kidney injury (Acute) Acute renal insufficiency (Acute) Elevated serum creatinine (Acute) Diarrhea (Acute) SARS-associated coronavirus infection (Acute) GI bleed (Acute) RECOMMENDATIONS: 1. Await repeat H&H. Transfuse for a hemoglobin less than 7 g/dL. 2. Continue PPI therapy. 3. Low suspicion for PE. No need for further anticoagulation. 4. Continue remdesivir. Monitor liver and renal function accordingly. 5. Dietary advancement per general surgery recommendations. IMPRESSIONS: 1. Acute blood loss anemia The patient did develop bloody diarrhea in the setting of systemic anticoagulation on Eliquis. Systemic anticoagulation was held and the patient was transfused packed red blood cells. Upper endoscopy did reveal a duodenal ulcer with adherent clot. The patient has remained hemodynamically stable. Plan to continue to monitor H&H and transfuse if hemoglobin drops below 7 g/dL. Continue PPI therapy as ordered. Dietary advancement per general surgery recommendations. Given that the patient has no supplemental oxygen requirement and has a low Wells PE score, I do not feel that any future anticoagulation is necessary. 2. COVID-19 pneumonia The patient is currently maintaining appropriate oxygen saturations on room air. Agree with continuing current supportive measures including remdesivir as ordered. Decadron was discontinued due to the presence of the stomach ulcer. 3. Morbid obesity/hypertension/diabetes mellitus Complicates care, management, recovery and prognosis. Continue Lantus and sliding scale insulin coverage. This note was generated with [employer] dictation software. It may contain incorrect words, spelling, and punctuation that were not noted in checking the note before signing. Inpatient E&M: 06947 Subs Hosp L2
[2020-10-03] MEDS: Lactated Ringers 1,000 ML 125 ML IV (06:21)
[2020-10-03] MEDS: Insulin Lispro 100 UNIT/ML INSULN.PEN SC ×3 (06:24→17:23)
--- NOTE | 2020-10-03 07:29 | PCM.PN.HOSP ---
Patient Problems: Active and Suspected Problems (Last Reviewed 09/25/20 @ 17:19 by Fabricio Shafer) 2019 novel coronavirus–infected pneumonia (NCIP)#8211;infected pneumonia (NCIP) (Acute) Hypotension due to hypovolemia (Acute) Sinus tachycardia by electrocardiography (Acute) Hyponatremia (Acute) Gastroenteritis due to COVID-19 virus (Acute) Acute kidney injury (Acute) Acute renal insufficiency (Acute) Elevated serum creatinine (Acute) Diarrhea (Acute) SARS-associated coronavirus infection (Acute) GI bleed (Acute) Reason for Visit: Follow-up for COVID-19 infection along with upper GI bleed due to entered clot with oozing Objective: As per nighttime hospitalist, patient passed blood clot in the last BMP in the morning today. Last H&H 8.9 at 11 PM yesterday. Dropped from 9.8 from yesterday morning. Patient heart rate and blood pressure are controlled. Currently pulse ox 94% on room air. Patient feels very hungry. Patient had 1 bowel movement at 10:30 AM. Patient had 3-4 bloody bowel movements yesterday. Patient denies abdominal pain and feels very hungry. Physical exam General: Alert, Oriented x3, Cooperative, morbid obesity BMI 42.7 kg/m? HEENT: Atraumatic, PERRLA, EOMI, Normocephalic Oral: No Gingival or Mucosal Lesions/ Ulcerations Neck: Supple, No JVD, Negative Carotid Bruits Lungs: Air entry diminished in bilateral lung bases. No crepitation/rhonchi Cardiovascular: Regular rate, Regular Rhythm, Normal S1, Normal S2, No murmurs Abdomen: Bowel Sounds Present, Soft, Non Tender, Non-Distended. Moderate sized umbilical hernia : No renal angle tenderness. No suprapubic tenderness. Extremities: No edema, Capillary Refill Less than 3 Seconds Skin: No rashes, No breakdown Musculoskeletal: No Tenderness to Palpation of Joints or Extremities Neurological: Cranial nerves II-XII grossly intact, Deep Tendon Reflexes 2+/4 and Symmetrical, Neuro grossly intact Psych/Mental Status: Normal Affect, Appropriate. Vitals/I&O's: Vital Signs Temp Pulse Resp BP Pulse Ox 97.2 F L 84 27 H 160/93 H 95 10/03/20 05:29 10/03/20 06:00 10/03/20 06:00 10/03/20 06:00 10/03/20 06:00 Oxygen Flow Rate (L/min) 1 Oxygen Delivery Method Room Air Weight: 323 lb 10.217 oz Body Mass Index (BMI) 46.2 Intake and Output for Last 24 Hours 10/01/20 10/02/20 10/03/20 23:59 23:59 23:59 Intake Total 1750 / 1750 3624 / 3624 1495.42 / 1495.42 Output Total 3325 / 3325 1100 / 1750 975 / 975 Balance -1575 / -1575 2524 / 1874 520.42 / 520.42 Microbiology Past 72 Hours 10/02/20 06:00 Stool Stool Occult Blood (LINETTE) - Final 10/01/20 14:15 Stool Stool Lactoferrin - Final 10/01/20 14:15 Stool Enteric Bacteriology - Final 10/01/20 14:15 Stool Stool Occult Blood (LINETTE) - Final 09/30/20 Unknown Urine, Random Streptococcus pneumoniae Antigen (M - Final 09/30/20 Unknown Urine, Random Legionella Antigen - Final Laboratory Results 10/01/20 07:05: Blood Type B POSITIVE, Antibody Screen NEGATIVE, Crossmatch See Detail 10/01/20 07:05: Crossmatch See Detail 10/02/20 06:55: WBC 8.2, RBC 4.62, Hgb 9.8 L, Hct 31.2 L, MCV 67.5 L, MCH 21.2 L, MCHC 31.4 L, RDW Std Deviation 34.3 L, RDW Coeff of Kg 14.5, Plt Count 439, MPV 10.8 10/02/20 06:55: Sodium 134 L, Potassium 3.8, Chloride 98, Carbon Dioxide 29.0, Anion Gap 7, BUN 31 H, Creatinine 0.89, Estim Creat Clear Calc 118.45, Est GFR (MDRD) Af Amer 119, Est GFR (MDRD) Non-Af 98, BUN/Creatinine Ratio 34.9 H, Glucose 243 H, Calcium 8.6, Total Bilirubin 0.50, AST 12 L, ALT 24, Alkaline Phosphatase 36 L, Total Protein 6.6, Albumin 2.6 L, Globulin 4.0, Albumin/Globulin Ratio 0.6 L 10/02/20 13:40: POC Glucose 273 H 10/02/20 16:07: POC Glucose 305 H 10/02/20 21:22: POC Glucose 318 H 10/02/20 23:15: Hgb 8.9 L, Hct 27.7 L Current Medications Acetaminophen (Acetaminophen 325 Mg Tablet) 650 mg PO Q4H PRN PRN PRN Reason: pain, 1-10/ FEVER T >100.4 Last Admin: 09/30/20 14:08 Dose: 650 mg Documented by: Al Hydroxide/Mg Hydroxide (Mag Hydrox/Al Hydrox/Simeth 30 Ml Udc) 30 ml PO Q6H PRN PRN PRN Reason: Gastric Burning Last Admin: 10/01/20 11:27 Dose: 30 ml Documented by: Dextrose (Dextrose 50%-Water 25 Gm/50 Ml Disp.Syrin) 0 gm IV X1 PRN; Protocol PRN Reason: Hypoglycemia Glucagon (Glucagon 1 Mg/Ml Syringe) 1 mg IM .X1 PRN PRN Reason: Hypoglycemia Remdesivir 100 mg/ Sodium (Chloride) 250 mls @ 125 mls/hr IV DAILY [facility] Stop: 10/04/20 11:59 Last Infusion: 10/02/20 22:28 Dose: Infused Documented by: Lactated Ringer's () 1,000 mls @ 125 mls/hr IV .Q8H JOEL Last Admin: 10/03/20 06:21 Dose: 125 mls/hr Documented by: Pantoprazole Sodium 40 mg/ (Sodium Chloride) 110 mls @ 330 mls/hr IV Q12 [facility] Last Infusion: 10/03/20 06:37 Dose: Infused Documented by: Insulin Glargine (Insulin Glargine 100 Units/Ml Pen) 15 units SC BID [facility] Last Admin: 10/02/20 23:18 Dose: 15 u Documented by: Insulin Human Lispro (Insulin Lispro 100 Unit/Ml Insuln.Pen) 0 unit SC Q6 [facility]; Protocol Last Admin: 10/03/20 06:24 Dose: 4 units Documented by: Morphine Sulfate (Morphine 2 Mg/Ml Syringe) 2 mg IV Q4H PRN PRN PRN Reason: Pain Score 6-10 Oxycodone HCl (Oxycodone 5 Mg Tablet) 5 mg PO Q4H PRN PRN PRN Reason: Pain Score 4-5 Prochlorperazine Edisylate (Prochlorperazine 10 Mg/2 Ml Vial) 10 mg IV Q6H PRN PRN PRN Reason: Nausea/Vomiting Last Admin: 10/01/20 10:10 Dose: 10 mg Documented by: Sodium Chloride (0.9% Saline Lock 10 Ml Syringe) 10 - 40 ml IV UD PRN PRN Reason: SALINE FLUSH Last Admin: 10/02/20 06:50 Dose: 10 ml Documented by: STROKE Vital Signs/Narrative: Vital Signs Temp Pulse Resp BP BP Pulse Ox 10/03/20 06:00 84 27 H 160/93 H 95 10/03/20 05:29 97.2 F L 89 22 H 168/73 H 91 10/03/20 05:00 85 17 152/75 H 93 10/03/20 04:29 97 F L 80 20 H 160/93 H 98 10/03/20 04:00 99 22 H 170/94 H 90 Medical Necessity - Tobacco Use Smoking Status: Former smoker Assessment/Plan All Active Problems (Last Reviewed 09/25/20 @ 17:19 by Fabricio Shafer) 2019 novel coronavirus–infected pneumonia (NCIP)#8211;infected pneumonia (NCIP) (Acute) Hypotension due to hypovolemia (Acute) Sinus tachycardia by electrocardiography (Acute) Hyponatremia (Acute) Gastroenteritis due to COVID-19 virus (Acute) Acute kidney injury (Acute) Acute renal insufficiency (Acute) Elevated serum creatinine (Acute) Diarrhea (Acute) SARS-associated coronavirus infection (Acute) GI bleed (Acute) 44-year-old Afro-[place]enian gentleman admitted with nausea, vomiting, dry and mild cough with COVID-19 test positive 1. Acute GI bleed most probably secondary to duodenal ulcer aggravated by Eliquis: Patient was empirically started Eliquis full anticoagulation dose based on high D-dimer 4.44. CTPA was not done because of BUN/creatinine elevated 31/1.38. Yesterday patient H&H was stable 13.2/42.9 although mild drop was thought to be hemodilution from IV fluid. Patient had bright red rectal bleed and Eliquis discontinued started on IV fluid Ringer lactate bolus. H&H every [address] Burt is being consulted. Patient is being transferred to ICU. District Wildlife Manager consulted. Patient had 80 mg of Protonix and started on 40 g every 12 hourly. PICC line is ordered. Patient has bedside EGD in ICU. EGD shows 1 oozing duodenal ulcer with adherent clot in D2. It seems that patient had duodenal ulcer which bled on anticoagulation, Eliquis. Patient was complaining of vague abdominal pain/discomfort. 10/03: Continue IV PPI twice daily. Monitor H&H every 6 hourly. Patient is having intermittent bloody bowel last night and 1 in the morning today. Hopefully, it is residual blood. 2. Acute viral gastroenteritis due to COVID-19 with: [facility] Patient having current GI bleed.Paradoxically, stool for occult blood x2 is negative. Enteric bacteriology panel negative. Stool for lactoferrin positive. Patient on Decadron and remdesivir. Patient had fever 103 Fahrenheit as per EMS. Hypoxic or tachypneic. Chest x-ray shows patchy peripheral infiltrate in right upper and right lower lobes and mid left lung. 3. Acute kidney injury, prerenal etiology with hypotension due to gastroenteritis: Creatinine improved to 0.87 with IV fluid support. Today BUN went up probably due to upper GI bleed. Creatinine normal. Sodium 134. Phosphorus 5: Repeat BMP shows creatinine 0.8 BUN 16. Sodium 138. 4. Diabetes mellitus type 2 glucose in BMP is 223 elevated. Accu-Cheks before meals and at bedtime and cover with Humalog sliding scale. Hold Metformin. 10/01: Glucose is controlled, glucose 212. Humalog scheduled 8 units 3 times daily with meals. 10/02: Glucose is high average about 250. On Lantus. Currently patient is n.p.o. therefore insulin sliding scale coverage dose. Is 5: Glucose is controlled. 5. Hypertension: Patient was hypotensive. Hold amlodipine. VT prophylaxis, moderate risk: Bilateral SCDs. Pharmacological prophylaxis contraindicated because of GI bleed Microbiology Past 72 Hours 10/02/20 06:00 Stool Stool Occult Blood (LINETTE) - Final 10/01/20 14:15 Stool Stool Lactoferrin - Final 10/01/20 14:15 Stool Enteric Bacteriology - Final 10/01/20 14:15 Stool Stool Occult Blood (LINETTE) - Final 09/30/20 Unknown Urine, Random Streptococcus pneumoniae Antigen (M - Final 09/30/20 Unknown Urine, Random Legionella Antigen - Final Laboratory Results 10/01/20 07:05: Blood Type Pending, Antibody Screen Pending, Crossmatch See Detail 10/01/20 11:16: POC Glucose 297 H 10/01/20 17:04: POC Glucose 316 H 10/01/20 21:38: POC Glucose 269 H 10/02/20 06:55: WBC 8.2, RBC 4.62, Hgb 9.8 L, Hct 31.2 L, MCV 67.5 L, MCH 21.2 L, MCHC 31.4 L, RDW Std Deviation 34.3 L, RDW Coeff of Kg 14.5, Plt Count 439, MPV 10.8 10/02/20 06:55: Sodium 134 L, Potassium 3.8, Chloride 98, Carbon Dioxide 29.0, Anion Gap 7, BUN 31 H, Creatinine 0.89, Estim Creat Clear Calc 118.45, Est GFR (MDRD) Af Amer 119, Est GFR (MDRD) Non-Af 98, BUN/Creatinine Ratio 34.9 H, Glucose 243 H, Calcium 8.6, Total Bilirubin 0.50, AST 12 L, ALT 24, Alkaline Phosphatase 36 L, Total Protein 6.6, Albumin 2.6 L, Globulin 4.0, Albumin/Globulin Ratio 0.6 L Inpatient E&M: 24861 Subs Hosp L3
[2020-10-03 08:01] LABS: Bedside Glucose 217 mg/dL (70-110)
[2020-10-03 08:33] LABS: Hemoglobin 8.5 g/dL (13.0-16.5); Mean Corp Hgb Conc 31.5 g/dL (32-36); Mean Corpuscular Hgb 22.7 pg (27.0-32.0); Mean Platelet Vol. 10.5 fl (6.2-12.0); Platelet Count 319 K/mm3 (150-450); RBC Distribution Width CV 16.5 % (11.6-14.6); RBC Distribution Width SD 42.1 fl (35.1-43.9); Red Blood Count 3.75 M/mm3 (4.6-6.2); White Blood Count 6.9 K/mm3 (4.4-11.0)
[2020-10-03 08:52] LABS: ALB/GLOB Ratio 0.7 RATIO (0.9-2.4); AST(SGOT) 15 U/L (15-37); Alanine Aminotransfer ALT/SGPT 24 U/L (16-61); Albumin, Serum 2.3 g/dL (3.2-5.0); Alkaline Phosphatase 35 U/L (45-117); Anion Gap 5 (5-15); BUN 16 mg/dL (7-18); BUN/Creat Ratio 20.1 RATIO (10-20); Calcium,Total 8.1 mg/dL (8.5-10.1); Chloride 103 mmol/L (98-107); EST Glomerular Filtration Rate 111 mL/min (>60); Est Glom Filt Rate - Afr Amer 135 mL/min (>60); Estimated Creatinine Clearance 131.78 ml/min; Globulin 3.4 g/dL (2.2-4.2); Glucose 179 mg/dL (74-106); Potassium 3.6 mmol/L (3.5-5.1); Protein, Total 5.7 g/dL (6.4-8.2); Sodium Level 138 mmol/L (136-145)
--- NOTE | 2020-10-03 10:29 | PCM.PN.SRG ---
Patient Problems: Active and Suspected Problems (Last Reviewed 09/25/20 @ 17:19 by Fabricio Shafer) 2019 novel coronavirus–infected pneumonia (NCIP)#8211;infected pneumonia (NCIP) (Acute) Hypotension due to hypovolemia (Acute) Sinus tachycardia by electrocardiography (Acute) Hyponatremia (Acute) Gastroenteritis due to COVID-19 virus (Acute) Acute kidney injury (Acute) Acute renal insufficiency (Acute) Elevated serum creatinine (Acute) Diarrhea (Acute) SARS-associated coronavirus infection (Acute) GI bleed (Acute) Subjective: Pt states he is hungry and wants to eat, no BM since midnight, Hb 8.5 from 8.9 after 1 unit PRBC - Physical Exam Vitals/I&O's: Vital Signs Temp Pulse Resp BP Pulse Ox 97.6 F L 93 20 H 148/92 H 94 10/03/20 08:00 10/03/20 10:00 10/03/20 10:00 10/03/20 10:00 10/03/20 10:00 Oxygen Flow Rate (L/min) 1 Oxygen Delivery Method Room Air Weight: 323 lb 10.217 oz Body Mass Index (BMI) 46.2 Intake and Output for Last 24 Hours 10/01/20 10/02/20 10/03/20 23:59 23:59 23:59 Intake Total 1750 / 1750 3624 / 3624 1495.42 / 1495.42 Output Total 3325 / 3325 1100 / 1750 975 / 975 Balance -1575 / -1575 2524 / 1874 520.42 / 520.42 General: Alert, Oriented x3, Cooperative, No apparent distress Lungs: Normal air movement Cardiovascular: Regular rate Abdomen: Soft, Non Tender, Non-Distended Microbiology Past 72 Hours 10/02/20 06:00 Stool Stool Occult Blood (LINETTE) - Final 10/01/20 14:15 Stool Stool Lactoferrin - Final 10/01/20 14:15 Stool Enteric Bacteriology - Final 10/01/20 14:15 Stool Stool Occult Blood (LINETTE) - Final 09/30/20 Unknown Urine, Random Streptococcus pneumoniae Antigen (M - Final 09/30/20 Unknown Urine, Random Legionella Antigen - Final Laboratory Results 10/01/20 07:05: Blood Type B POSITIVE, Antibody Screen NEGATIVE, Crossmatch See Detail 10/01/20 07:05: Crossmatch See Detail 10/02/20 13:40: POC Glucose 273 H 10/02/20 16:07: POC Glucose 305 H 10/02/20 21:22: POC Glucose 318 H 10/02/20 23:15: Hgb 8.9 L, Hct 27.7 L 10/03/20 06:24: POC Glucose 217 H 10/03/20 08:10: WBC 6.9, RBC 3.75 L, Hgb 8.5 L, Hct 27.0 L, MCV 72.0 L D, MCH 22.7 L, MCHC 31.5 L, RDW Std Deviation 42.1, RDW Coeff of Kg 16.5 H, Plt Count 319, MPV 10.5 10/03/20 08:10: Sodium 138, Potassium 3.6, Chloride 103, Carbon Dioxide 30.0, Anion Gap 5, BUN 16, Creatinine 0.80, Estim Creat Clear Calc 131.78, Est GFR (MDRD) Af Amer 135, Est GFR (MDRD) Non-Af 111, BUN/Creatinine Ratio 20.1 H, Glucose 179 H, Calcium 8.1 L, Total Bilirubin 0.60, AST 15, ALT 24, Alkaline Phosphatase 35 L, Total Protein 5.7 L, Albumin 2.3 L, Globulin 3.4, Albumin/Globulin Ratio 0.7 L Current Medications Acetaminophen (Acetaminophen 325 Mg Tablet) 650 mg PO Q4H PRN PRN PRN Reason: pain, 1-10/ FEVER T >100.4 Last Admin: 09/30/20 14:08 Dose: 650 mg Documented by: Al Hydroxide/Mg Hydroxide (Mag Hydrox/Al Hydrox/Simeth 30 Ml Udc) 30 ml PO Q6H PRN PRN PRN Reason: Gastric Burning Last Admin: 10/01/20 11:27 Dose: 30 ml Documented by: Dextrose (Dextrose 50%-Water 25 Gm/50 Ml Disp.Syrin) 0 gm IV X1 PRN; Protocol PRN Reason: Hypoglycemia Glucagon (Glucagon 1 Mg/Ml Syringe) 1 mg IM .X1 PRN PRN Reason: Hypoglycemia Remdesivir 100 mg/ Sodium (Chloride) 250 mls @ 125 mls/hr IV DAILY JO[facility] Stop: 10/04/20 11:59 Last Infusion: 10/02/20 22:28 Dose: Infused Documented by: Pantoprazole Sodium 40 mg/ (Sodium Chloride) 110 mls @ 330 mls/hr IV Q12 [facility] Last Admin: 10/03/20 08:39 Dose: 330 mls/hr Documented by: Insulin Glargine (Insulin Glargine 100 Units/Ml Pen) 15 units SC BID [facility] Last Admin: 10/02/20 23:18 Dose: 15 u Documented by: Insulin Human Lispro (Insulin Lispro 100 Unit/Ml Insuln.Pen) 0 unit SC Q6 [facility]; Protocol Last Admin: 10/03/20 06:24 Dose: 4 units Documented by: Morphine Sulfate (Morphine 2 Mg/Ml Syringe) 2 mg IV Q4H PRN PRN PRN Reason: Pain Score 6-10 Oxycodone HCl (Oxycodone 5 Mg Tablet) 5 mg PO Q4H PRN PRN PRN Reason: Pain Score 4-5 Prochlorperazine Edisylate (Prochlorperazine 10 Mg/2 Ml Vial) 10 mg IV Q6H PRN PRN PRN Reason: Nausea/Vomiting Last Admin: 10/01/20 10:10 Dose: 10 mg Documented by: Sodium Chloride (0.9% Saline Lock 10 Ml Syringe) 10 - 40 ml IV UD PRN PRN Reason: SALINE FLUSH Last Admin: 10/02/20 06:50 Dose: 10 ml Documented by: Medical Necessity - Tobacco Use Smoking Status: Former smoker Assessment/Plan All Active Problems (Last Reviewed 09/25/20 @ 17:19 by Fabricio Shafer) 2019 novel coronavirus–infected pneumonia (NCIP)#8211;infected pneumonia (NCIP) (Acute) Hypotension due to hypovolemia (Acute) Sinus tachycardia by electrocardiography (Acute) Hyponatremia (Acute) Gastroenteritis due to COVID-19 virus (Acute) Acute kidney injury (Acute) Acute renal insufficiency (Acute) Elevated serum creatinine (Acute) Diarrhea (Acute) SARS-associated coronavirus infection (Acute) GI bleed (Acute) 44 y/o M with UGI, duodenal ulcer w adherent clot s/p EGD, +COVID 1. Continue H/H check, NPO, IV PPI, 2. d/w with patient if increased bleeding may need to repeat EGD to try to control bleeding. Nimo Petersen M.D. Pager: [phone] [facility] [address] [place] [address], [address] [place] [address] Office: [phone]
[2020-10-03] MEDS: 0.9% Saline Lock 10 ML Syringe IV ×2 (10:39→21:19)
[2020-10-03 13:57] LABS: Hematocrit 27.4 % (40-54); Hemoglobin 8.7 g/dL (13.0-16.5)
[2020-10-03 14:05] LABS: Bedside Glucose 156 mg/dL (70-110)
[2020-10-03 17:35] LABS: Bedside Glucose 208 mg/dL (70-110)
[2020-10-03 21:41] LABS: Bedside Glucose 160 mg/dL (70-110)
--- NOTE | 2020-10-03 22:25 | NURSING ---
2220: PATIENT TRANSFERRED TO [facility] AT THIS TIME PER [facility].
[2020-10-04 00:10] LABS: Bedside Glucose 138 mg/dL (70-110)
[2020-10-04 03:48] VITALS: BP 128/68; PULSE 88; RESP 22; TEMP 36.4; O2SAT 93
[2020-10-04 04:58] LABS: Absolute Lymphocyte Count 1.82 X10^3/uL (0.83-4.51); Eosinophil# 0.01 X10^3/uL; Eosinophils% 0.1 % (0-5); Hemoglobin 7.9 g/dL (13.0-16.5); Lymphocyte # 1.82 X10^3/ul (4.0); Lymphocyte % 24.5 % (19-41); Mean Corp Hgb Conc 31.6 g/dL (32-36); Mean Corpuscular Hgb 22.4 pg (27.0-32.0); Mean Corpuscular Volume 70.8 fL (80-94); Mean Platelet Vol. 9.9 fl (6.2-12.0); Monocyte# 0.58 X10^3/uL; Monocyte% 7.8 % (0-10); NRBC Flagged by Analyzer 0 % (0-5); Neutrophil # 4.95 X10^3/uL (2.7-7.7); Neutrophil % 66.8 % (47-70); Platelet Count 363 K/mm3 (150-450); RBC Distribution Width CV 16.2 % (11.6-14.6); RBC Distribution Width SD 40.9 fl (35.1-43.9); Red Blood Count 3.53 M/mm3 (4.6-6.2); White Blood Count 7.4 K/mm3 (4.4-11.0)
[2020-10-04 05:26] LABS: ALB/GLOB Ratio 0.7 RATIO (0.9-2.4); AST(SGOT) 22 U/L (15-37); Alanine Aminotransfer ALT/SGPT 25 U/L (16-61); Albumin, Serum 2.3 g/dL (3.2-5.0); Alkaline Phosphatase 38 U/L (45-117); Anion Gap 6 (5-15); BUN 10 mg/dL (7-18); BUN/Creat Ratio 13.4 RATIO (10-20); Calcium,Total 8.1 mg/dL (8.5-10.1); Chloride 105 mmol/L (98-107); Creatinine, Serum 0.75 mg/dL (0.70-1.30); EST Glomerular Filtration Rate 120 mL/min (>60); Est Glom Filt Rate - Afr Amer 145 mL/min (>60); Estimated Creatinine Clearance 140.56 ml/min; Globulin 3.3 g/dL (2.2-4.2); Glucose 133 mg/dL (74-106); Potassium 3.4 mmol/L (3.5-5.1); Protein, Total 5.6 g/dL (6.4-8.2); Sodium Level 138 mmol/L (136-145)
[2020-10-04 06:55] LABS: Bedside Glucose 128 mg/dL (70-110)
--- NOTE | 2020-10-04 07:00 | PN_ITS ---
Patient Problems: Active and Suspected Problems (Last Reviewed 09/25/20 @ 17:19 by Fabricio Shafer) 2019 novel coronavirus–infected pneumonia (NCIP)#8211;infected pneumonia (NCIP) (Acute) Hypotension due to hypovolemia (Acute) Sinus tachycardia by electrocardiography (Acute) Hyponatremia (Acute) Gastroenteritis due to COVID-19 virus (Acute) Acute kidney injury (Acute) Acute renal insufficiency (Acute) Elevated serum creatinine (Acute) Diarrhea (Acute) SARS-associated coronavirus infection (Acute) GI bleed (Acute) Subjective: The patient was seen and examined at the bedside this morning. Events from the last 24 hours have been reviewed. The patient is currently afebrile, hemodynamically stable and maintaining appropriate oxygen saturations on room air. Hemoglobin has trended down to 7.9 g/dL this morning. Potassium is low at 3.4. The patient has been tolerant of clear liquids. He did report a bowel movement overnight with scant blood noted. Objective: The patient's most recent lab work, culture data and imaging studies have all been personally reviewed. Upper endoscopy did reveal a duodenal ulcer with adherent clot. - Physical Exam Vitals/I&O's: Vital Signs Temp Pulse Resp BP Pulse Ox 97.6 F L 88 22 H 128/68 H 93 10/04/20 03:48 10/04/20 03:48 10/04/20 03:48 10/04/20 03:48 10/04/20 03:48 Oxygen Flow Rate (L/min) 1 Oxygen Delivery Method Room Air Weight: 323 lb 10.217 oz Body Mass Index (BMI) 46.2 Intake and Output for Last 24 Hours 10/02/20 10/03/20 10/04/20 23:59 23:59 23:59 Intake Total 3624 / 3624 4255.42 / 4255.42 400 / 400 Output Total 1100 / 1750 1775 / 1775 Balance 2524 / 1874 2480.42 / 2480.42 400 / 400 General: Alert, Oriented x3, Cooperative, No apparent distress, - - Sitting in bedside recliner. HEENT: Atraumatic, PERRLA, Normocephalic Oral: No Gingival or Mucosal Lesions/ Ulcerations Neck: Supple, No Nodes, Trachea Midline Lungs: Normal air movement, No rhonchi, No wheeze, No rales Cardiovascular: Regular rate, Regular Rhythm Abdomen: Bowel Sounds Present, Soft, Non Tender, Obese Extremities: No clubbing, No cyanosis, No edema Skin: No breakdown Musculoskeletal: No Tenderness to Palpation of Joints or Extremities, No Muscle Wasting Lymphatic: No Cervical, Supraclavicular, or Inguinal Adenopathy Neurological: Cranial nerves II-XII grossly intact, Neuro grossly intact Psych/Mental Status: Alert and oriented to time, place, person, mood and affect Labs (Last 48 Hours) 10/01/20 10/01/20 10/02/20 07:05 07:05 06:55 WBC 8.2 RBC 4.62 Hgb 9.8 L Hct 31.2 L MCV 67.5 L MCH 21.2 L MCHC 31.4 L RDW Std Deviation 34.3 L RDW Coeff of Kg 14.5 Plt Count 439 MPV 10.8 Immature Gran % (Auto) Neut % (Auto) Lymph % (Auto) [place] % (Auto) Eos % (Auto) Baso % (Auto) Absolute Neuts (auto) Absolute Lymphs (auto) Nucleated RBC % Sodium Potassium Chloride Carbon Dioxide Anion Gap BUN Creatinine Estim Creat Clear Calc Est GFR (MDRD) Af Amer Est GFR (MDRD) Non-Af BUN/Creatinine Ratio Glucose Calcium Total Bilirubin AST ALT Alkaline Phosphatase Total Protein Albumin Globulin Albumin/Globulin Ratio POC Glucose Blood Type B POSITIVE Antibody Screen NEGATIVE Crossmatch See Detail See Detail 10/02/20 10/02/20 10/02/20 06:55 13:40 16:07 WBC RBC Hgb Hct MCV MCH MCHC RDW Std Deviation RDW Coeff of Kg Plt Count MPV Immature Gran % (Auto) Neut % (Auto) Lymph % (Auto) Fallon % (Auto) Eos % (Auto) Baso % (Auto) Absolute Neuts (auto) Absolute Lymphs (auto) Nucleated RBC % Sodium 134 L Potassium 3.8 Chloride 98 Carbon Dioxide 29.0 Anion Gap 7 BUN 31 H Creatinine 0.89 Estim Creat Clear Calc 118.45 Est GFR (MDRD) Af Amer 119 Est GFR (MDRD) Non-Af 98 BUN/Creatinine Ratio 34.9 H Glucose 243 H Calcium 8.6 Total Bilirubin 0.50 AST 12 L ALT 24 Alkaline Phosphatase 36 L Total Protein 6.6 Albumin 2.6 L Globulin 4.0 Albumin/Globulin Ratio 0.6 L POC Glucose 273 H 305 H Blood Type Antibody Screen Crossmatch 10/02/20 10/02/20 10/03/20 21:22 23:15 06:24 WBC RBC Hgb 8.9 L Hct 27.7 L MCV MCH MCHC RDW Std Deviation RDW Coeff of Kg Plt Count MPV Immature Gran % (Auto) Neut % (Auto) Lymph % (Auto) [place] % (Auto) Eos % (Auto) Baso % (Auto) Absolute Neuts (auto) Absolute Lymphs (auto) Nucleated RBC % Sodium Potassium Chloride Carbon Dioxide Anion Gap BUN Creatinine Estim Creat Clear Calc Est GFR (MDRD) Af Amer Est GFR (MDRD) Non-Af BUN/Creatinine Ratio Glucose Calcium Total Bilirubin AST ALT Alkaline Phosphatase Total Protein Albumin Globulin Albumin/Globulin Ratio POC Glucose 318 H 217 H Blood Type Antibody Screen Crossmatch 10/03/20 10/03/20 10/03/20 08:10 08:10 11:39 WBC 6.9 RBC 3.75 L Hgb 8.5 L Hct 27.0 L MCV 72.0 L D MCH 22.7 L MCHC 31.5 L RDW Std Deviation 42.1 RDW Coeff of Kg 16.5 H Plt Count 319 MPV 10.5 Immature Gran % (Auto) Neut % (Auto) Lymph % (Auto) Fallon % (Auto) Eos % (Auto) Baso % (Auto) Absolute Neuts (auto) Absolute Lymphs (auto) Nucleated RBC % Sodium 138 Potassium 3.6 Chloride 103 Carbon Dioxide 30.0 Anion Gap 5 BUN 16 Creatinine 0.80 Estim Creat Clear Calc 131.78 Est GFR (MDRD) Af Amer 135 Est GFR (MDRD) Non-Af 111 BUN/Creatinine Ratio 20.1 H Glucose 179 H Calcium 8.1 L Total Bilirubin 0.60 AST 15 ALT 24 Alkaline Phosphatase 35 L Total Protein 5.7 L Albumin 2.3 L Globulin 3.4 Albumin/Globulin Ratio 0.7 L POC Glucose 156 H Blood Type Antibody Screen Crossmatch 10/03/20 10/03/20 10/03/20 13:50 17:20 21:26 WBC RBC Hgb 8.7 L Hct 27.4 L MCV MCH MCHC RDW Std Deviation RDW Coeff of Kg Plt Count MPV Immature Gran % (Auto) Neut % (Auto) Lymph % (Auto) [place]on % (Auto) Eos % (Auto) Baso % (Auto) Absolute Neuts (auto) Absolute Lymphs (auto) Nucleated RBC % Sodium Potassium Chloride Carbon Dioxide Anion Gap BUN Creatinine Estim Creat Clear Calc Est GFR (MDRD) Af Amer Est GFR (MDRD) Non-Af BUN/Creatinine Ratio Glucose Calcium Total Bilirubin AST ALT Alkaline Phosphatase Total Protein Albumin Globulin Albumin/Globulin Ratio POC Glucose 208 H 160 H Blood Type Antibody Screen Crossmatch 10/03/20 10/04/20 10/04/20 23:46 04:14 04:14 WBC 7.4 RBC 3.53 L Hgb 7.9 L Hct 25.0 L MCV 70.8 L MCH 22.4 L MCHC 31.6 L RDW Std Deviation 40.9 RDW Coeff of Kg 16.2 H Plt Count 363 MPV 9.9 Immature Gran % (Auto) 0.800 Neut % (Auto) 66.8 Lymph % (Auto) 24.5 Fallon % (Auto) 7.8 Eos % (Auto) 0.1 Baso % (Auto) 0.0 Absolute Neuts (auto) 5.0 Absolute Lymphs (auto) 1.82 Nucleated RBC % 0 Sodium 138 Potassium 3.4 L Chloride 105 Carbon Dioxide 27.0 Anion Gap 6 BUN 10 Creatinine 0.75 Estim Creat Clear Calc 140.56 Est GFR (MDRD) Af Amer 145 Est GFR (MDRD) Non-Af 120 BUN/Creatinine Ratio 13.4 Glucose 133 H Calcium 8.1 L Total Bilirubin 0.50 AST 22 ALT 25 Alkaline Phosphatase 38 L Total Protein 5.6 L Albumin 2.3 L Globulin 3.3 Albumin/Globulin Ratio 0.7 L POC Glucose 138 H Blood Type Antibody Screen Crossmatch 10/04/20 05:59 WBC RBC Hgb Hct MCV MCH MCHC RDW Std Deviation RDW Coeff of Kg Plt Count MPV Immature Gran % (Auto) Neut % (Auto) Lymph % (Auto) Fall[place] % (Auto) Eos % (Auto) Baso % (Auto) Absolute Neuts (auto) Absolute Lymphs (auto) Nucleated RBC % Sodium Potassium Chloride Carbon Dioxide Anion Gap BUN Creatinine Estim Creat Clear Calc Est GFR (MDRD) Af Amer Est GFR (MDRD) Non-Af BUN/Creatinine Ratio Glucose Calcium Total Bilirubin AST ALT Alkaline Phosphatase Total Protein Albumin Globulin Albumin/Globulin Ratio POC Glucose 128 H Blood Type Antibody Screen Crossmatch Microbiology 10/02/20 06:00 Stool Stool Occult Blood (LINETTE) - Final 10/01/20 14:15 Stool Stool Lactoferrin - Final 10/01/20 14:15 Stool Enteric Bacteriology - Final 10/01/20 14:15 Stool Stool Occult Blood (LINETTE) - Final Clinical Impression(s) from Imaging Studies Chest X-Ray 09/30/20 11:33 IMPRESSION: Patchy peripheral infiltrates in the right upper and right lower lobes as well as in the midportion of the left lung. Follow-up is recommended. Electronically Signed: Shmuel Méndez, at 13:31 EST , Service support , Chest X-Ray 10/02/20 08:55 IMPRESSION: Since prior study, there has been improved aeration of both lungs with residual infiltrate in the lateral aspect of the right hemithorax. Electronically Signed: Shmuel Méndez, at 9:37 EST , Service support , Current Medications Acetaminophen (Acetaminophen 325 Mg Tablet) 650 mg PO Q4H PRN PRN PRN Reason: pain, 1-10/ FEVER T >100.4 Last Admin: 09/30/20 14:08 Dose: 650 mg Documented by: Al Hydroxide/Mg Hydroxide (Mag Hydrox/Al Hydrox/Simeth 30 Ml Udc) 30 ml PO Q6H PRN PRN PRN Reason: Gastric Burning Last Admin: 10/01/20 11:27 Dose: 30 ml Documented by: Dextrose (Dextrose 50%-Water 25 Gm/50 Ml Disp.Syrin) 0 gm IV X1 PRN; Protocol PRN Reason: Hypoglycemia Glucagon (Glucagon 1 Mg/Ml Syringe) 1 mg IM .X1 PRN PRN Reason: Hypoglycemia Remdesivir 100 mg/ Sodium (Chloride) 250 mls @ 125 mls/hr IV DAILY JOEL Stop: 10/04/20 11:59 Last Infusion: 10/03/20 12:36 Dose: Infused Documented by: Pantoprazole Sodium 40 mg/ (Sodium Chloride) 110 mls @ 330 mls/hr IV Q12 JOEL Last Infusion: 10/03/20 21:38 Dose: Infused Documented by: Insulin Glargine (Insulin Glargine 100 Units/Ml Pen) 15 units SC BID [facility] Last Admin: 10/03/20 21:31 Dose: 15 u Documented by: Insulin Human Lispro (Insulin Lispro 100 Unit/Ml Insuln.Pen) 0 unit SC Q6 [facility]; Protocol Last Admin: 10/04/20 06:29 Dose: Not Given Documented by: Morphine Sulfate (Morphine 2 Mg/Ml Syringe) 2 mg IV Q4H PRN PRN PRN Reason: Pain Score 6-10 Oxycodone HCl (Oxycodone 5 Mg Tablet) 5 mg PO Q4H PRN PRN PRN Reason: Pain Score 4-5 Prochlorperazine Edisylate (Prochlorperazine 10 Mg/2 Ml Vial) 10 mg IV Q6H PRN PRN PRN Reason: Nausea/Vomiting Last Admin: 10/01/20 10:10 Dose: 10 mg Documented by: Sodium Chloride (0.9% Saline Lock 10 Ml Syringe) 10 - 40 ml IV UD PRN PRN Reason: SALINE FLUSH Last Admin: 10/03/20 21:19 Dose: 10 ml Documented by: Medical Necessity - Tobacco Use Smoking Status: Former smoker Assessment/Plan All Active Problems (Last Reviewed 09/25/20 @ 17:19 by Fabricio Shafer) 2019 novel coronavirus–infected pneumonia (NCIP)#8211;infected pneumonia (NCIP) (Acute) Hypotension due to hypovolemia (Acute) Sinus tachycardia by electrocardiography (Acute) Hyponatremia (Acute) Gastroenteritis due to COVID-19 virus (Acute) Acute kidney injury (Acute) Acute renal insufficiency (Acute) Elevated serum creatinine (Acute) Diarrhea (Acute) SARS-associated coronavirus infection (Acute) GI bleed (Acute) RECOMMENDATIONS: 1. Continue to monitor blood counts. Transfuse for a hemoglobin less than 7 g/dL. 2. Continue PPI therapy. 3. Low suspicion for PE. No need for further anticoagulation. 4. Continue remdesivir. Monitor liver and renal function accordingly. 5. Dietary advancement per general surgery recommendations. IMPRESSIONS: 1. Acute blood loss anemia The patient did develop bloody diarrhea in the setting of systemic anticoagulation on Eliquis. Systemic anticoagulation was held and the patient was transfused packed red blood cells. Upper endoscopy did reveal a duodenal ulcer with adherent clot. The patient has remained hemodynamically stable. Plan to continue to monitor H&H and transfuse if hemoglobin drops below 7 g/dL. Continue PPI therapy as ordered. Dietary advancement per general surgery recommendations. Given that the patient has no supplemental oxygen requirement and has a low Wells PE score, I do not feel that any future anticoagulation is necessary. 2. COVID-19 pneumonia The patient is currently maintaining appropriate oxygen saturations on room air. Agree with continuing current supportive measures including remdesivir as ordered. Decadron was discontinued due to the presence of the stomach ulcer. 3. Morbid obesity/hypertension/diabetes mellitus Complicates care, management, recovery and prognosis. Continue Lantus and slid ing scale insulin coverage. This note was generated with [employer] dictation software. It may contain incorrect words, spelling, and punctuation that were not noted in checking the note before signing. Inpatient E&M: 37239 Subs Hosp L2
--- NOTE | 2020-10-04 08:37 | PN_ITS ---
Patient Problems: Active and Suspected Problems (Last Reviewed 09/25/20 @ 17:19 by Fabricio Shafer) 2019 novel coronavirus–infected pneumonia (NCIP)#8211;infected pneumonia (NCIP) (Acute) Hypotension due to hypovolemia (Acute) Sinus tachycardia by electrocardiography (Acute) Hyponatremia (Acute) Gastroenteritis due to COVID-19 virus (Acute) Acute kidney injury (Acute) Acute renal insufficiency (Acute) Elevated serum creatinine (Acute) Diarrhea (Acute) SARS-associated coronavirus infection (Acute) GI bleed (Acute) Reason for Visit: Follow-up for upper GI bleed secondary to adherent oozing duodenal clot with hypotension and COVID-19 infection Objective: Patient blood pressure is normal., 128/68 denies abdominal pain. Patient had loose brownish stool yesterday. Did not had any bowel movement today. No nausea or vomiting. Tolerated clear liquid diet yesterday. Physical exam General: Alert, Oriented x3, Cooperative, morbid obesity, BMI 42.7 KG per meter square HEENT: Atraumatic, PERRLA, EOMI, Normocephalic Oral: No Gingival or Mucosal Lesions/ Ulcerations Neck: Supple, No JVD, Negative Carotid Bruits Lungs: Air entry diminished in bilateral lung bases. No crepitation/rhonchi. Not hypoxic Cardiovascular: Regular rate, Regular Rhythm, Normal S1, Normal S2, No murmurs Abdomen: Bowel Sounds Present, Soft, Non Tender, Non-Distended. Moderate sized umbilical hernia, reducible : No renal angle tenderness. No suprapubic tenderness. Extremities: No edema, Capillary Refill Less than 3 Seconds Skin: No rashes, No breakdown Musculoskeletal: No Tenderness to Palpation of Joints or Extremities Neurological: Cranial nerves II-XII grossly intact, Deep Tendon Reflexes 2+/4 and Symmetrical, Neuro grossly intact Psych/Mental Status: Normal Affect, Appropriate. Vitals/I&O's: Vital Signs Temp Pulse Resp BP Pulse Ox 97.6 F L 88 22 H 128/68 H 93 10/04/20 03:48 10/04/20 03:48 10/04/20 03:48 10/04/20 03:48 10/04/20 03:48 Oxygen Flow Rate (L/min) 1 Oxygen Delivery Method Room Air Weight: 323 lb 10.217 oz Body Mass Index (BMI) 46.2 Intake and Output for Last 24 Hours 10/02/20 10/03/20 10/04/20 23:59 23:59 23:59 Intake Total 3624 / 3624 4255.42 / 4255.42 400 / 400 Output Total 1100 / 1750 1775 / 1775 Balance 2524 / 1874 2480.42 / 2480.42 400 / 400 Microbiology Past 72 Hours 10/02/20 06:00 Stool Stool Occult Blood (LINETTE) - Final 10/01/20 14:15 Stool Stool Lactoferrin - Final 10/01/20 14:15 Stool Enteric Bacteriology - Final 10/01/20 14:15 Stool Stool Occult Blood (LINETTE) - Final Laboratory Results 10/03/20 08:10: WBC 6.9, RBC 3.75 L, Hgb 8.5 L, Hct 27.0 L, MCV 72.0 L D, MCH 22.7 L, MCHC 31.5 L, RDW Std Deviation 42.1, RDW Coeff of Kg 16.5 H, Plt Count 319, MPV 10.5 10/03/20 08:10: Sodium 138, Potassium 3.6, Chloride 103, Carbon Dioxide 30.0, Anion Gap 5, BUN 16, Creatinine 0.80, Estim Creat Clear Calc 131.78, Est GFR (MDRD) Af Amer 135, Est GFR (MDRD) Non-Af 111, BUN/Creatinine Ratio 20.1 H, Glucose 179 H, Calcium 8.1 L, Total Bilirubin 0.60, AST 15, ALT 24, Alkaline Phosphatase 35 L, Total Protein 5.7 L, Albumin 2.3 L, Globulin 3.4, Albumin/Globulin Ratio 0.7 L 10/03/20 11:39: POC Glucose 156 H 10/03/20 13:50: Hgb 8.7 L, Hct 27.4 L 10/03/20 17:20: POC Glucose 208 H 10/03/20 21:26: POC Glucose 160 H 10/03/20 23:46: POC Glucose 138 H 10/04/20 04:14: WBC 7.4, RBC 3.53 L, Hgb 7.9 L, Hct 25.0 L, MCV 70.8 L, MCH 22.4 L, MCHC 31.6 L, RDW Std Deviation 40.9, RDW Coeff of Kg 16.2 H, Plt Count 363, MPV 9.9, Immature Gran % (Auto) 0.800, Neut % (Auto) 66.8, Lymph % (Auto) 24.5, [place] % (Auto) 7.8, Eos % (Auto) 0.1, Baso % (Auto) 0.0, Absolute Neuts (auto) 5.0, Absolute Lymphs (auto) 1.82, Nucleated RBC % 0 10/04/20 04:14: Sodium 138, Potassium 3.4 L, Chloride 105, Carbon Dioxide 27.0, Anion Gap 6, BUN 10, Creatinine 0.75, Estim Creat Clear Calc 140.56, Est GFR (MDRD) Af Amer 145, Est GFR (MDRD) Non-Af 120, BUN/Creatinine Ratio 13.4, Glucose 133 H, Calcium 8.1 L, Total Bilirubin 0.50, AST 22, ALT 25, Alkaline Phosphatase 38 L, Total Protein 5.6 L, Albumin 2.3 L, Globulin 3.3, Albumin/Globulin Ratio 0.7 L 10/04/20 05:59: POC Glucose 128 H Current Medications Acetaminophen (Acetaminophen 325 Mg Tablet) 650 mg PO Q4H PRN PRN PRN Reason: pain, 1-10/ FEVER T >100.4 Last Admin: 09/30/20 14:08 Dose: 650 mg Documented by: Al Hydroxide/Mg Hydroxide (Mag Hydrox/Al Hydrox/Simeth 30 Ml Udc) 30 ml PO Q6H PRN PRN PRN Reason: Gastric Burning Last Admin: 10/01/20 11:27 Dose: 30 ml Documented by: Dextrose (Dextrose 50%-Water 25 Gm/50 Ml Disp.Syrin) 0 gm IV X1 PRN; Protocol PRN Reason: Hypoglycemia Glucagon (Glucagon 1 Mg/Ml Syringe) 1 mg IM .X1 PRN PRN Reason: Hypoglycemia Remdesivir 100 mg/ Sodium (Chloride) 250 mls @ 125 mls/hr IV DAILY JOEL Stop: 10/04/20 11:59 Last Infusion: 10/03/20 12:36 Dose: Infused Documented by: Pantoprazole Sodium 40 mg/ (Sodium Chloride) 110 mls @ 330 mls/hr IV Q12 JOEL Last Infusion: 10/03/20 21:38 Dose: Infused Documented by: Ferric Sodium Gluconate Complex 250 mg/ Sodium Chloride 270 mls @ 135 mls/hr IV X1 ONE Stop: 10/04/20 09:54 Insulin Glargine (Insulin Glargine 100 Units/Ml Pen) 15 units SC BID JOEL Last Admin: 10/03/20 21:31 Dose: 15 u Documented by: Insulin Human Lispro (Insulin Lispro 100 Unit/Ml Insuln.Pen) 0 unit SC Q6 JOEL; Protocol Last Admin: 10/04/20 06:29 Dose: Not Given Documented by: Morphine Sulfate (Morphine 2 Mg/Ml Syringe) 2 mg IV Q4H PRN PRN PRN Reason: Pain Score 6-10 Oxycodone HCl (Oxycodone 5 Mg Tablet) 5 mg PO Q4H PRN PRN PRN Reason: Pain Score 4-5 Prochlorperazine Edisylate (Prochlorperazine 10 Mg/2 Ml Vial) 10 mg IV Q6H PRN PRN PRN Reason: Nausea/Vomiting Last Admin: 10/01/20 10:10 Dose: 10 mg Documented by: Sodium Chloride (0.9% Saline Lock 10 Ml Syringe) 10 - 40 ml IV UD PRN PRN Reason: SALINE FLUSH Last Admin: 10/03/20 21:19 Dose: 10 ml Documented by: Medical Necessity - Tobacco Use Smoking Status: Former smoker Assessment/Plan All Active Problems (Last Reviewed 09/25/20 @ 17:19 by Fabricio Shafer) 2019 novel coronavirus–infected pneumonia (NCIP)#8211;infected pneumonia (NCIP) (Acute) Hypotension due to hypovolemia (Acute) Sinus tachycardia by electrocardiography (Acute) Hyponatremia (Acute) Gastroenteritis due to COVID-19 virus (Acute) Acute kidney injury (Acute) Acute renal insufficiency (Acute) Elevated serum creatinine (Acute) Diarrhea (Acute) SARS-associated coronavirus infection (Acute) GI bleed (Acute) 44-year-old Afro-[place] gentleman admitted with nausea, vomiting, dry and mild cough with COVID-19 test positive 1. Acute GI bleed most probably secondary to duodenal ulcer aggravated by Eliquis: Patient was empirically started Eliquis full anticoagulation dose based on high D-dimer 4.44. CTPA was not done because of BUN/creatinine elevated 31/1.38. Yesterday patient H&H was stable 13.2/42.9 although mild drop was thought to be hemodilution from IV fluid. Patient had bright red rectal bleed and Eliquis discontinued started on IV fluid Ringer lactate bolus. H&H every [address] Burt is being consulted. Patient is being transferred to ICU. Prep Room Supervisor consulted. Patient had 80 mg of Protonix and started on 40 g every 12 hourly. PICC line is ordered. Patient has bedside EGD in ICU. EGD shows 1 oozing duodenal ulcer with adherent clot in D2. It seems that patient had duodenal ulcer which bled on anticoagulation, Eliquis. Patient was complaining of vague abdominal pain/discomfort. 10/04: Discussed with assembling fabricator and surgeon. Patient transferred to regular floor. Hemodynamically blood pressure and heart rate are in normal range. Patient still has brownish stool yesterday. H&H gradually dropping, last one 7.07/24. Iron sucrose 200 mg IV ordered. Repeat H&H in afternoon. Diet advanced to full liquid. On IV PPI twice daily 2. Acute viral gastroenteritis due to COVID-19 with: Patient is being admitted on [facility]. Patient having current GI bleed.Paradoxically, stool for occult blood x2 is negative. Enteric bacteriology panel negative. Stool for lactoferrin positive. Patient on Decadron and remdesivir. Patient had fever 103 Fahrenheit as per EMS. Hypoxic or tachypneic. Chest x-ray shows patchy peripheral infiltrate in right upper and right lower lobes and mid left lung. 3. Acute kidney injury, prerenal etiology with hypotension due to gastroenteritis: Creatinine improved to 0.87 with IV fluid support. Today BUN went up probably due to upper GI bleed. Creatinine normal. Sodium 134. Phosphorus 5: Repeat BMP shows creatinine 0.8 BUN 16. Sodium 138. 4. Diabetes mellitus type 2 glucose in BMP is 223 elevated. Accu-Cheks before meals and at bedtime and cover with Humalog sliding scale. Hold Metformin. 12: Glucose is controlled, glucose 212. Humalog scheduled 8 units 3 times daily with meals. 10/02: Glucose is high average about 250. On Lantus. Currently patient is n.p.o. therefore insulin sliding scale coverage dose. Is 5: Glucose is controlled. 5. Hypertension: Patient was hypotensive. Hold amlodipine. VT prophylaxis, moderate risk: Bilateral SCDs. Pharmacological prophylaxis contraindicated because of GI bleed. Microbiology Past 72 Hours 10/02/20 06:00 Stool Stool Occult Blood (LINETTE) - Final 10/01/20 14:15 Stool Stool Lactoferrin - Final 10/01/20 14:15 Stool Enteric Bacteriology - Final 10/01/20 14:15 Stool Stool Occult Blood (LINETTE) - Final Laboratory Results 10/03/20 08:10: WBC 6.9, RBC 3.75 L, Hgb 8.5 L, Hct 27.0 L, MCV 72.0 L D, MCH 22.7 L, MCHC 31.5 L, RDW Std Deviation 42.1, RDW Coeff of Kg 16.5 H, Plt Count 319, MPV 10.5 10/03/20 08:10: Sodium 138, Potassium 3.6, Chloride 103, Carbon Dioxide 30.0, Anion Gap 5, BUN 16, Creatinine 0.80, Estim Creat Clear Calc 131.78, Est GFR (MDRD) Af Amer 135, Est GFR (MDRD) Non-Af 111, BUN/Creatinine Ratio 20.1 H, Glucose 179 H, Calcium 8.1 L, Total Bilirubin 0.60, AST 15, ALT 24, Alkaline Phosphatase 35 L, Total Protein 5.7 L, Albumin 2.3 L, Globulin 3.4, Albumin/Globulin Ratio 0.7 L 10/03/20 11:39: POC Glucose 156 H 10/03/20 13:50: Hgb 8.7 L, Hct 27.4 L 10/03/20 17:20: POC Glucose 208 H 10/03/20 21:26: POC Glucose 160 H 10/03/20 23:46: POC Glucose 138 H 10/04/20 04:14: WBC 7.4, RBC 3.53 L, Hgb 7.9 L, Hct 25.0 L, MCV 70.8 L, MCH 22.4 L, MCHC 31.6 L, RDW Std Deviation 40.9, RDW Coeff of Kg 16.2 H, Plt Count 363, MPV 9.9, Immature Gran % (Auto) 0.800, Neut % (Auto) 66.8, Lymph % (Auto) 24.5, [place] % (Auto) 7.8, Eos % (Auto) 0.1, Baso % (Auto) 0.0, Absolute Neuts (auto) 5.0, Absolute Lymphs (auto) 1.82, Nucleated RBC % 0 10/04/20 04:14: Sodium 138, Potassium 3.4 L, Chloride 105, Carbon Dioxide 27.0, Anion Gap 6, BUN 10, Creatinine 0.75, Estim Creat Clear Calc 140.56, Est GFR (MDRD) Af Amer 145, Est GFR (MDRD) Non-Af 120, BUN/Creatinine Ratio 13.4, Glu cose 133 H, Calcium 8.1 L, Total Bilirubin 0.50, AST 22, ALT 25, Alkaline Phosphatase 38 L, Total Protein 5.6 L, Albumin 2.3 L, Globulin 3.3, Albumin/Globulin Ratio 0.7 L 10/04/20 05:59: POC Glucose 128 H Inpatient E&M: 11181 Subs Hosp L2
--- NOTE | 2020-10-04 09:04 | PCM.PN.SRG ---
Patient Problems: Active and Suspected Problems (Last Reviewed 09/25/20 @ 17:19 by Fabricio Shafer) 2019 novel coronavirus–infected pneumonia (NCIP)#8211;infected pneumonia (NCIP) (Acute) Hypotension due to hypovolemia (Acute) Sinus tachycardia by electrocardiography (Acute) Hyponatremia (Acute) Gastroenteritis due to COVID-19 virus (Acute) Acute kidney injury (Acute) Acute renal insufficiency (Acute) Elevated serum creatinine (Acute) Diarrhea (Acute) SARS-associated coronavirus infection (Acute) GI bleed (Acute) Subjective: pt tolerated clears- hb 7.9, some brown stool per Dr. Seals - Physical Exam Vitals/I&O's: Vital Signs Temp Pulse Resp BP Pulse Ox 97.6 F L 88 22 H 128/68 H 93 10/04/20 03:48 10/04/20 03:48 10/04/20 03:48 10/04/20 03:48 10/04/20 03:48 Oxygen Flow Rate (L/min) 1 Oxygen Delivery Method Room Air Weight: 323 lb 10.217 oz Body Mass Index (BMI) 46.2 Intake and Output for Last 24 Hours 10/02/20 10/03/20 10/04/20 23:59 23:59 23:59 Intake Total 3624 / 3624 4255.42 / 4255.42 400 / 400 Output Total 1100 / 1750 1775 / 1775 Balance 2524 / 1874 2480.42 / 2480.42 400 / 400 Comment: Did not enter the room due to Covid positive, d/w nursing & Dr Seals Microbiology Past 72 Hours 10/02/20 06:00 Stool Stool Occult Blood (LINETTE) - Final 10/01/20 14:15 Stool Stool Lactoferrin - Final 10/01/20 14:15 Stool Enteric Bacteriology - Final 10/01/20 14:15 Stool Stool Occult Blood (LINETTE) - Final Laboratory Results 10/03/20 11:39: POC Glucose 156 H 10/03/20 13:50: Hgb 8.7 L, Hct 27.4 L 10/03/20 17:20: POC Glucose 208 H 10/03/20 21:26: POC Glucose 160 H 10/03/20 23:46: POC Glucose 138 H 10/04/20 04:14: WBC 7.4, RBC 3.53 L, Hgb 7.9 L, Hct 25.0 L, MCV 70.8 L, MCH 22.4 L, MCHC 31.6 L, RDW Std Deviation 40.9, RDW Coeff of Kg 16.2 H, Plt Count 363, MPV 9.9, Immature Gran % (Auto) 0.800, Neut % (Auto) 66.8, Lymph % (Auto) 24.5, [place] % (Auto) 7.8, Eos % (Auto) 0.1, Baso % (Auto) 0.0, Absolute Neuts (auto) 5.0, Absolute Lymphs (auto) 1.82, Nucleated RBC % 0 10/04/20 04:14: Sodium 138, Potassium 3.4 L, Chloride 105, Carbon Dioxide 27.0, Anion Gap 6, BUN 10, Creatinine 0.75, Estim Creat Clear Calc 140.56, Est GFR (MDRD) Af Amer 145, Est GFR (MDRD) Non-Af 120, BUN/Creatinine Ratio 13.4, Glucose 133 H, Calcium 8.1 L, Total Bilirubin 0.50, AST 22, ALT 25, Alkaline Phosphatase 38 L, Total Protein 5.6 L, Albumin 2.3 L, Globulin 3.3, Albumin/Globulin Ratio 0.7 L 10/04/20 05:59: POC Glucose 128 H Current Medications Acetaminophen (Acetaminophen 325 Mg Tablet) 650 mg PO Q4H PRN PRN PRN Reason: pain, 1-10/ FEVER T >100.4 Last Admin: 09/30/20 14:08 Dose: 650 mg Documented by: Al Hydroxide/Mg Hydroxide (Mag Hydrox/Al Hydrox/Simeth 30 Ml Udc) 30 ml PO Q6H PRN PRN PRN Reason: Gastric Burning Last Admin: 10/01/20 11:27 Dose: 30 ml Documented by: Dextrose (Dextrose 50%-Water 25 Gm/50 Ml Disp.Syrin) 0 gm IV X1 PRN; Protocol PRN Reason: Hypoglycemia Glucagon (Glucagon 1 Mg/Ml Syringe) 1 mg IM .X1 PRN PRN Reason: Hypoglycemia Remdesivir 100 mg/ Sodium (Chloride) 250 mls @ 125 mls/hr IV DAILY JOEL Stop: 10/04/20 11:59 Last Infusion: 10/03/20 12:36 Dose: Infused Documented by: Pantoprazole Sodium 40 mg/ (Sodium Chloride) 110 mls @ 330 mls/hr IV Q12 JOEL Last Infusion: 10/03/20 21:38 Dose: Infused Documented by: Ferric Sodium Gluconate Complex 250 mg/ Sodium Chloride 270 mls @ 135 mls/hr IV X1 ONE Stop: 10/04/20 09:54 Insulin Glargine (Insulin Glargine 100 Units/Ml Pen) 15 units SC BID JOEL Last Admin: 10/03/20 21:31 Dose: 15 u Documented by: Insulin Human Lispro (Insulin Lispro 100 Unit/Ml Insuln.Pen) 0 unit SC Q6 JOEL; Protocol Last Admin: 10/04/20 06:29 Dose: Not Given Documented by: Morphine Sulfate (Morphine 2 Mg/Ml Syringe) 2 mg IV Q4H PRN PRN PRN Reason: Pain Score 6-10 Oxycodone HCl (Oxycodone 5 Mg Tablet) 5 mg PO Q4H PRN PRN PRN Reason: Pain Score 4-5 Prochlorperazine Edisylate (Prochlorperazine 10 Mg/2 Ml Vial) 10 mg IV Q6H PRN PRN PRN Reason: Nausea/Vomiting Last Admin: 10/01/20 10:10 Dose: 10 mg Documented by: Sodium Chloride (0.9% Saline Lock 10 Ml Syringe) 10 - 40 ml IV UD PRN PRN Reason: SALINE FLUSH Last Admin: 10/03/20 21:19 Dose: 10 ml Documented by: Medical Necessity - Tobacco Use Smoking Status: Former smoker Assessment/Plan All Active Problems (Last Reviewed 09/25/20 @ 17:19 by Fabricio Shafer) 2019 novel coronavirus–infected pneumonia (NCIP)#8211;infected pneumonia (NCIP) (Acute) Hypotension due to hypovolemia (Acute) Sinus tachycardia by electrocardiography (Acute) Hyponatremia (Acute) Gastroenteritis due to COVID-19 virus (Acute) Acute kidney injury (Acute) Acute renal insufficiency (Acute) Elevated serum creatinine (Acute) Diarrhea (Acute) SARS-associated coronavirus infection (Acute) GI bleed (Acute) 44 y/o M with UGI, duodenal ulcer w adherent clot s/p EGD, +COVID 1. Continue H/H check, IV PPI, ok for fulls 2. will continue to follow Nimo Petersen M.D. Pager: [phone] [facility] [address] [place] [address], [address] [place] [address] Office: [phone]
[2020-10-04 09:40] VITALS: BP 131/87; PULSE 106; RESP 18; TEMP 36.8; O2SAT 97
[2020-10-04] MEDS: Sodium Ferric Gluconat 250 MG in 0.9% Normal Saline 250 ML 135 MG IV (10:34)
[2020-10-04 12:40] LABS: Bedside Glucose 175 mg/dL (70-110)
[2020-10-04] MEDS: Insulin Lispro 100 UNIT/ML INSULN.PEN SC ×3 (12:42→22:57)
[2020-10-04 14:40] LABS: Hematocrit 27.3 % (40-54); Hemoglobin 8.6 g/dL (13.0-16.5)
[2020-10-04 14:54] VITALS: BP 141/86; PULSE 103; RESP 18; TEMP 37.3; O2SAT 95
[2020-10-04 15:46] LABS: Bedside Glucose 153 mg/dL (70-110)
[2020-10-04 17:45] LABS: Bedside Glucose 178 mg/dL (70-110)
[2020-10-04 21:40] VITALS: BP 138/85; PULSE 108; RESP 18; TEMP 37.3; O2SAT 92
[2020-10-04] MEDS: 0.9% Saline Lock 10 ML Syringe IV (22:52)
[2020-10-05 05:05] LABS: Absolute Lymphocyte Count 1.61 X10^3/uL (0.83-4.51); Absolute Neutrophil Count 4.6 X10^3/uL (2.0-7.7); Basophil# 0.01 X10^3/uL; Basophil% 0.1 % (0-1); Eosinophil# 0.04 X10^3/uL; Eosinophils% 0.6 % (0-5); Hemoglobin 8.7 g/dL (13.0-16.5); Lymphocyte # 1.61 X10^3/ul (4.0); Lymphocyte % 23.5 % (19-41); Mean Corp Hgb Conc 31.1 g/dL (32-36); Mean Corpuscular Hgb 22.3 pg (27.0-32.0); Mean Corpuscular Volume 71.8 fL (80-94); Mean Platelet Vol. 9.6 fl (6.2-12.0); Monocyte# 0.55 X10^3/uL; NRBC Flagged by Analyzer 0.4 % (0-5); Neutrophil # 4.57 X10^3/uL (2.7-7.7); Neutrophil % 66.8 % (47-70); Platelet Count 436 K/mm3 (150-450); RBC Distribution Width CV 16.6 % (11.6-14.6); RBC Distribution Width SD 41.7 fl (35.1-43.9); White Blood Count 6.9 K/mm3 (4.4-11.0)
[2020-10-05 05:31] LABS: ALB/GLOB Ratio 0.7 RATIO (0.9-2.4); AST(SGOT) 18 U/L (15-37); Alanine Aminotransfer ALT/SGPT 29 U/L (16-61); Albumin, Serum 2.5 g/dL (3.2-5.0); Alkaline Phosphatase 47 U/L (45-117); Anion Gap 7 (5-15); BUN 6 mg/dL (7-18); BUN/Creat Ratio 9.2 RATIO (10-20); Calcium,Total 8.2 mg/dL (8.5-10.1); Chloride 105 mmol/L (98-107); Creatinine, Serum 0.65 mg/dL (0.70-1.30); EST Glomerular Filtration Rate 140 mL/min (>60); Est Glom Filt Rate - Afr Amer 170 mL/min (>60); Estimated Creatinine Clearance 162.19 ml/min; Globulin 3.8 g/dL (2.2-4.2); Glucose 152 mg/dL (74-106); Potassium 3.6 mmol/L (3.5-5.1); Protein, Total 6.3 g/dL (6.4-8.2); Sodium Level 139 mmol/L (136-145)
[2020-10-05 06:00] LABS: Bedside Glucose 162 mg/dL (70-110)
[2020-10-05] MEDS: Insulin Lispro 100 UNIT/ML INSULN.PEN SC ×2 (06:09→12:29)
[2020-10-05 06:13] VITALS: BP 154/93; PULSE 63; RESP 20; TEMP 36.2; O2SAT 96
[2020-10-05 07:00] LABS: Bedside Glucose 151 mg/dL (70-110)
--- NOTE | 2020-10-05 08:52 | PN.SURG_ITS ---
Patient Problems: Active and Suspected Problems (Last Reviewed 09/25/20 @ 17:19 by Fabricio Shafer) 2019 novel coronavirus–infected pneumonia (NCIP)#8211;infected pneumonia (NCIP) (Acute) Hypotension due to hypovolemia (Acute) Sinus tachycardia by electrocardiography (Acute) Hyponatremia (Acute) Gastroenteritis due to COVID-19 virus (Acute) Acute kidney injury (Acute) Acute renal insufficiency (Acute) Elevated serum creatinine (Acute) Diarrhea (Acute) SARS-associated coronavirus infection (Acute) GI bleed (Acute) Subjective: Patient reports no blood in his bowel movements. He has no abdominal pain or nausea or vomiting. - Physical Exam Vitals/I&O's: Vital Signs Temp Pulse Resp BP Pulse Ox 97.2 F L 63 20 H 154/93 H 96 10/05/20 06:13 10/05/20 06:13 10/05/20 06:13 10/05/20 06:13 10/05/20 06:13 Oxygen Flow Rate (L/min) 1 Oxygen Delivery Method Room Air Weight: 323 lb 10.217 oz Body Mass Index (BMI) 46.2 Intake and Output for Last 24 Hours 10/03/20 10/04/20 10/05/20 23:59 23:59 23:59 Intake Total 4255.42 / 4255.42 1740 / 1740 600 / 600 Output Total 1775 / 1775 Balance 2480.42 / 2480.42 1740 / 1740 600 / 600 General: Alert, Oriented x3 Lungs: Normal air movement Cardiovascular: Regular rate, Regular Rhythm Abdomen: Soft, Non Tender, Non-Distended Microbiology Past 72 Hours 10/02/20 06:00 Stool Stool Occult Blood (LINETTE) - Final 10/01/20 14:15 Stool Stool Lactoferrin - Final 10/01/20 14:15 Stool Enteric Bacteriology - Final 10/01/20 14:15 Stool Stool Occult Blood (LINETTE) - Final Laboratory Results 10/04/20 09:32: POC Glucose 175 H 10/04/20 12:40: POC Glucose 153 H 10/04/20 14:25: Hgb 8.6 L, Hct 27.3 L 10/04/20 15:48: POC Glucose 178 H 10/04/20 22:50: POC Glucose 162 H 10/05/20 04:25: WBC 6.9, RBC 3.90 L, Hgb 8.7 L, Hct 28.0 L, MCV 71.8 L, MCH 22.3 L, MCHC 31.1 L, RDW Std Deviation 41.7, RDW Coeff of Kg 16.6 H, Plt Count 436, MPV 9.6, Immature Gran % (Auto) 1.000 H, Neut % (Auto) 66.8, Lymph % (Auto) 23.5, [place] % (Auto) 8.0, Eos % (Auto) 0.6, Baso % (Auto) 0.1, Absolute Neuts (auto) 4.6, Absolute Lymphs (auto) 1.61, Nucleated RBC % 0.4 10/05/20 04:25: Sodium 139, Potassium 3.6, Chloride 105, Carbon Dioxide 27.0, Anion Gap 7, BUN 6 L, Creatinine 0.65 L, Estim Creat Clear Calc 162.19, Est GFR (MDRD) Af Amer 170, Est GFR (MDRD) Non-Af 140, BUN/Creatinine Ratio 9.2 L, Glucose 152 H, Calcium 8.2 L, Total Bilirubin 0.60, AST 18, ALT 29, Alkaline Phosphatase 47, Total Protein 6.3 L, Albumin 2.5 L, Globulin 3.8, Albumin/Globulin Ratio 0.7 L 10/05/20 06:01: POC Glucose 151 H Current Medications Acetaminophen (Acetaminophen 325 Mg Tablet) 650 mg PO Q4H PRN PRN PRN Reason: pain, 1-10/ FEVER T >100.4 Last Admin: 09/30/20 14:08 Dose: 650 mg Documented by: Al Hydroxide/Mg Hydroxide (Mag Hydrox/Al Hydrox/Simeth 30 Ml Udc) 30 ml PO Q6H PRN PRN PRN Reason: Gastric Burning Last Admin: 10/01/20 11:27 Dose: 30 ml Documented by: Dextrose (Dextrose 50%-Water 25 Gm/50 Ml Disp.Syrin) 0 gm IV X1 PRN; Protocol PRN Reason: Hypoglycemia Glucagon (Glucagon 1 Mg/Ml Syringe) 1 mg IM .X1 PRN PRN Reason: Hypoglycemia Insulin Glargine (Insulin Glargine 100 Units/Ml Pen) 15 units SC BID JOEL Last Admin: 10/04/20 22:56 Dose: 15 u Documented by: Insulin Human Lispro (Insulin Lispro 100 Unit/Ml Insuln.Pen) 0 unit SC Q6 JOEL; Protocol Last Admin: 10/05/20 06:09 Dose: 2 units Documented by: Morphine Sulfate (Morphine 2 Mg/Ml Syringe) 2 mg IV Q4H PRN PRN PRN Reason: Pain Score 6-10 Oxycodone HCl (Oxycodone 5 Mg Tablet) 5 mg PO Q4H PRN PRN PRN Reason: Pain Score 4-5 Pantoprazole Sodium (Pantoprazole Sodium 20 Mg Tablet) 20 mg PO BID JOEL Prochlorperazine Edisylate (Prochlorperazine 10 Mg/2 Ml Vial) 10 mg IV Q6H PRN PRN PRN Reason: Nausea/Vomiting Last Admin: 10/01/20 10:10 Dose: 10 mg Documented by: Sodium Chloride (0.9% Saline Lock 10 Ml Syringe) 10 - 40 ml IV UD PRN PRN Reason: SALINE FLUSH Last Admin: 10/04/20 22:52 Dose: 10 ml Documented by: Medical Necessity - Tobacco Use Smoking Status: Former smoker Assessment/Plan All Active Problems (Last Reviewed 09/25/20 @ 17:19 by Fabricio Shafer) 2019 novel coronavirus–infected pneumonia (NCIP)#8211;infected pneumonia (NCIP) (Acute) Hypotension due to hypovolemia (Acute) Sinus tachycardia by electrocardiography (Acute) Hyponatremia (Acute) Gastroenteritis due to COVID-19 virus (Acute) Acute kidney injury (Acute) Acute renal insufficiency (Acute) Elevated serum creatinine (Acute) Diarrhea (Acute) SARS-associated coronavirus infection (Acute) GI bleed (Acute) 44-year-old male with duodenal ulcer with bleeding 1. The patient had a bleeding duodenal ulcer with adherent clot. The patient has not had any bloody bowel movements over the weekend. He has tolerated full liquids no abdominal pain. Hemoglobin is stable. 2. The patient can be advanced to a regular diet and change to p.o. PPI. I would like him discharged on a twice daily PPI for at least 2 months. Follow-up with me as needed. Neil Burt MD Pager: [facility] [address] [place] [address], [address] [place] [address] Office:
[2020-10-05] MEDS: Pantoprazole Sodium 20 MG Tablet PO (09:14)
[2020-10-05 11:45] LABS: Bedside Glucose 223 mg/dL (70-110)
[2020-10-05 12:46] VITALS: O2SAT 91; O2SAT 95
--- NOTE | 2020-10-05 12:47 | DCINST_ITS ---
- Discharge Diagnoses Current Active Problems: Current Active and Chronic Problems (Last Reviewed 09/25/20 @ 17:19 by Fabricio Shafer) History of hypertension (Chronic) History of type 2 diabetes mellitus (Chronic) History of hypercholesterolemia (Chronic) History of obstructive sleep apnea (Chronic) 2019 novel coronavirus–infected pneumonia (NCIP)#8211;infected pneumonia (NCIP) (Acute) Hypotension due to hypovolemia (Acute) Hyperglycemia due to type 2 diabetes mellitus (Chronic) Sinus tachycardia by electrocardiography (Acute) Hyponatremia (Acute) Gastroenteritis due to COVID-19 virus (Acute) Acute kidney injury (Acute) Acute renal insufficiency (Acute) Elevated serum creatinine (Acute) Diarrhea (Acute) SARS-associated coronavirus infection (Acute) GI bleed (Acute) You will use the following diet at home:: Calorie/Carbohydrate Controlled (specify 1200, 1400, etc) - 1800 Your food should be the consistency of: Regular Your liquids should be the consistency of: Regular/Thin Call your doctor if you observe: Fever of 101 or Higher, Shortness of breath, - - blood in stool. dark tarry stools Allergies/Adverse Reactions: Allergies No Known Allergies Allergy (Verified 09/30/20 07:58) Medications to take at Discharge Amlodipine [Norvasc] 5 mg PO DAILY 09/30/20 Metformin HCl 1,000 mg PO BID 09/30/20 Pantoprazole Sodium [Protonix] 20 mg PO BID #60 tab 10/05/20 The following prescriptions were given: Pantoprazole Sodium [Protonix] 20 mg PO BID #60 tab Transmission Status: Pending to [facility]/pharmacy #[id number] Primary Care Physician: Maria Luisa Sy MD [Primary Care Provider] - Within 2 Weeks Test Results: Test results from this visit will be discussed in further detail at your follow- up appointment, if applicable. Please Follow Up With: Neil Burt MD When: 2 months as needed. Proposed Discharge Date: 10/05/20
--- NOTE | 2020-10-05 12:49 | PCM.DC.SUM ---
Discharge Date and Diagnosis - Problem List Patient Problems: Active and Suspected Problems (Last Reviewed 09/25/20 @ 17:19 by Fabricio Shafer) 2019 novel coronavirus–infected pneumonia (NCIP)#8211;infected pneumonia (NCIP) (Acute) Hypotension due to hypovolemia (Acute) Sinus tachycardia by electrocardiography (Acute) Hyponatremia (Acute) Gastroenteritis due to COVID-19 virus (Acute) Acute kidney injury (Acute) Acute renal insufficiency (Acute) Elevated serum creatinine (Acute) Diarrhea (Acute) SARS-associated coronavirus infection (Acute) GI bleed (Acute) Date of Admission: 09/30/20 Date of Discharge: 10/05/20 - Primary Discharge Diagnosis Acute Problems: Active Problems (Last Reviewed 09/25/20 @ 17:19 by Fabricio Shafer) 2019 novel coronavirus–infected pneumonia (NCIP)#8211;infected pneumonia (NCIP) (Acute) Hypotension due to hypovolemia (Acute) Sinus tachycardia by electrocardiography (Acute) Hyponatremia (Acute) Gastroenteritis due to COVID-19 virus (Acute) Acute kidney injury (Acute) Acute renal insufficiency (Acute) Elevated serum creatinine (Acute) Diarrhea (Acute) SARS-associated coronavirus infection (Acute) GI bleed (Acute) acute blood loss anemia - Secondary Discharge Diagnosis Chronic Problems: Chronic Problems (Last Reviewed 09/25/20 @ 17:19 by Fabricio Shafer) History of hypertension (Chronic) History of type 2 diabetes mellitus (Chronic) History of hypercholesterolemia (Chronic) History of obstructive sleep apnea (Chronic) Hyperglycemia due to type 2 diabetes mellitus (Chronic) Hospital Course and Treatment Imaging Results: Clinical Impression(s) from Imaging Studies Chest X-Ray 09/30/20 11:33 IMPRESSION: Patchy peripheral infiltrates in the right upper and right lower lobes as well as in the midportion of the left lung. Follow-up is recommended. Electronically Signed: Shmuel Méndez, at 13:31 EST , Service support , Chest X-Ray 10/02/20 08:55 IMPRESSION: Since prior study, there has been improved aeration of both lungs with residual infiltrate in the lateral aspect of the right hemithorax. Electronically Signed: Shmuel Méndez, at 9:37 EST , Service support , Operations: None Procedures: EGD - - Normal esophagus. - Normal stomach. - One oozing duodenal ulcer with adherent clot. - No specimens collected. Summary of Care Provided: The patient is a 44 year old M presents with nausea, vomiting and diarrhea for 1 week. Patient was tested positive for COVID-19 on the . Stated the symptoms began 2 to 3 days prior. Patient had a elevated D-dimer of 4.4. Patient was started on dexamethasone. It was noted the patient was having dark tarry stools. Patient had been started on Dexilant for a high D-dimer in the context of COVID-19. Patient was seen by general surgery and underwent an EGD that showed a adherent clot to his duodenal ulcer. Patient was stopped on dexamethasone due to the ulcer. Patient did complete a course of remdesivir. Patient will need to quarantine since onset of his symptoms which was 22 September. Went to the patient that the apixaban was not the cause of his ulcer but did make the ulcer bleed more easily. Inquired if he takes any NSAIDs to which he said he did not. [] Patient Problems: Active and Suspected Problems (Last Reviewed 09/25/20 @ 17:19 by Fabricio Shafer) 2019 novel coronavirus–infected pneumonia (NCIP)#8211;infected pneumonia (NCIP) (Acute) Hypotension due to hypovolemia (Acute) Sinus tachycardia by electrocardiography (Acute) Hyponatremia (Acute) Gastroenteritis due to COVID-19 virus (Acute) Acute kidney injury (Acute) Acute renal insufficiency (Acute) Elevated serum creatinine (Acute) Diarrhea (Acute) SARS-associated coronavirus infection (Acute) GI bleed (Acute) - Physical Exam Vitals/I&O's: Vital Signs Temp Pulse Resp BP Pulse Ox 36.2 C L 63 20 H 154/93 H 95 10/05/20 06:13 10/05/20 06:13 10/05/20 06:13 10/05/20 06:13 10/05/20 12:46 Oxygen Flow Rate (L/min) [ 0 AMBULATING on Room Air] Oxygen Flow Rate (L/min) [At 0 REST on Room Air] Oxygen Flow Rate (L/min) 1 Oxygen Delivery Method Room Air Weight: 146.8 kg Body Mass Index (BMI) 46.2 Intake and Output for Last 24 Hours 10/03/20 10/04/20 10/05/20 23:59 23:59 23:59 Intake Total 4255.42 / 4255.42 1740 / 1740 1100 / 1100 Output Total 1775 / 1775 Balance 2480.42 / 2480.42 1740 / 1740 1100 / 1100 General: Alert, Cooperative, No apparent distress HEENT: Atraumatic, Normocephalic Abdomen: Obese, - - umbilical hernia Psych/Mental Status: Normal Affect, Appropriate Microbiology Past 72 Hours 10/02/20 06:00 Stool Stool Occult Blood (LINETTE) - Final 10/01/20 14:15 Stool Stool Lactoferrin - Final 10/01/20 14:15 Stool Enteric Bacteriology - Final 10/01/20 14:15 Stool Stool Occult Blood (LINETTE) - Final Laboratory Results 10/04/20 12:40: POC Glucose 153 H 10/04/20 14:25: Hgb 8.6 L, Hct 27.3 L 10/04/20 15:48: POC Glucose 178 H 10/04/20 22:50: POC Glucose 162 H 10/05/20 04:25: WBC 6.9, RBC 3.90 L, Hgb 8.7 L, Hct 28.0 L, MCV 71.8 L, MCH 22.3 L, MCHC 31.1 L, RDW Std Deviation 41.7, RDW Coeff of Kg 16.6 H, Plt Count 436, MPV 9.6, Immature Gran % (Auto) 1.000 H, Neut % (Auto) 66.8, Lymph % (Auto) 23.5, [place] % (Auto) 8.0, Eos % (Auto) 0.6, Baso % (Auto) 0.1, Absolute Neuts (auto) 4.6, Absolute Lymphs (auto) 1.61, Nucleated RBC % 0.4 10/05/20 04:25: Sodium 139, Potassium 3.6, Chloride 105, Carbon Dioxide 27.0, Anion Gap 7, BUN 6 L, Creatinine 0.65 L, Estim Creat Clear Calc 162.19, Est GFR (MDRD) Af Amer 170, Est GFR (MDRD) Non-Af 140, BUN/Creatinine Ratio 9.2 L, Glucose 152 H, Calcium 8.2 L, Total Bilirubin 0.60, AST 18, ALT 29, Alkaline Phosphatase 47, Total Protein 6.3 L, Albumin 2.5 L, Globulin 3.8, Albumin/Globulin Ratio 0.7 L 10/05/20 06:01: POC Glucose 151 H 10/05/20 11:41: POC Glucose 223 H Current Medications Acetaminophen (Acetaminophen 325 Mg Tablet) 650 mg PO Q4H PRN PRN PRN Reason: pain, 1-10/ FEVER T >100.4 Last Admin: 09/30/20 14:08 Dose: 650 mg Documented by: Al Hydroxide/Mg Hydroxide (Mag Hydrox/Al Hydrox/Simeth 30 Ml Udc) 30 ml PO Q6H PRN PRN PRN Reason: Gastric Burning Last Admin: 10/01/20 11:27 Dose: 30 ml Documented by: Dextrose (Dextrose 50%-Water 25 Gm/50 Ml Disp.Syrin) 0 gm IV X1 PRN; Protocol PRN Reason: Hypoglycemia Glucagon (Glucagon 1 Mg/Ml Syringe) 1 mg IM .X1 PRN PRN Reason: Hypoglycemia Insulin Glargine (Insulin Glargine 100 Units/Ml Pen) 15 units SC BID [facility] Last Admin: 10/05/20 09:16 Dose: 15 u Documented by: Insulin Human Lispro (Insulin Lispro 100 Unit/Ml Insuln.Pen) 0 unit SC Q6 JOEL; Protocol Last Admin: 10/05/20 12:29 Dose: 4 units Documented by: Morphine Sulfate (Morphine 2 Mg/Ml Syringe) 2 mg IV Q4H PRN PRN PRN Reason: Pain Score 6-10 Oxycodone HCl (Oxycodone 5 Mg Tablet) 5 mg PO Q4H PRN PRN PRN Reason: Pain Score 4-5 Pantoprazole Sodium (Pantoprazole Sodium 20 Mg Tablet) 20 mg PO BID [facility] Last Admin: 10/05/20 09:14 Dose: 20 mg Documented by: Prochlorperazine Edisylate (Prochlorperazine 10 Mg/2 Ml Vial) 10 mg IV Q6H PRN PRN PRN Reason: Nausea/Vomiting Last Admin: 10/01/20 10:10 Dose: 10 mg Documented by: Sodium Chloride (0.9% Saline Lock 10 Ml Syringe) 10 - 40 ml IV UD PRN PRN Reason: SALINE FLUSH Last Admin: 10/04/20 22:52 Dose: 10 ml Documented by: Discharge Diet: No Restrictions, 1800 Calorie Control Diet Discharge Activity: Return to Normal Activity Call your doctor if you observe: Fever of 101 or Higher, Shortness of breath, - - blood in stool. dark tarry stools Home Medications: Medications to take at Discharge Amlodipine [Norvasc] 5 mg PO DAILY 09/30/20 Metformin HCl 1,000 mg PO BID 09/30/20 Pantoprazole Sodium [Protonix] 20 mg PO BID #60 tab 10/05/20 Following Prescriptions Were Given to Patient: Pantoprazole Sodium [Protonix] 20 mg PO BID #60 tab Transmission Status: Pending to [facility]/pharmacy #[id number] Primary Care Physician: Maria Luisa Sy MD [Primary Care Provider] - Within 2 Weeks Please Follow Up With: Neil Burt MD When: 2 months as needed. Disposition: Home Minutes spent on discharge:: 32 Patient Condition:: Good Medical Necessity - Tobacco Use Smoking Status: Former smoker Meaningful Use Info Meaningful Use Diagnoses (Choose all that apply): None applicable Inpatient E&M: 58279 Disch Hosp
[2020-10-05 13:30] VITALS: O2SAT 94
--- NOTE | 2020-10-05 13:31 | PCM.PN.PUL ---
Patient Problems: Active and Suspected Problems (Last Reviewed 09/25/20 @ 17:19 by Fabricio Shafer) 2019 novel coronavirus–infected pneumonia (NCIP)#8211;infected pneumonia (NCIP) (Acute) Hypotension due to hypovolemia (Acute) Sinus tachycardia by electrocardiography (Acute) Hyponatremia (Acute) Gastroenteritis due to COVID-19 virus (Acute) Acute kidney injury (Acute) Acute renal insufficiency (Acute) Elevated serum creatinine (Acute) Diarrhea (Acute) SARS-associated coronavirus infection (Acute) GI bleed (Acute) Subjective: Patient did well overnight. No acute issues were reported. Patient has been hemodynamically stable on room air. Patient is not reporting any diarrhea, nausea or vomiting. Patient was able to tolerate lunch prior to my arrival. - Physical Exam Vitals/I&O's: Vital Signs Temp Pulse Resp BP Pulse Ox 36.2 C L 63 20 H 154/93 H 95 10/05/20 06:13 10/05/20 06:13 10/05/20 06:13 10/05/20 06:13 10/05/20 12:46 Oxygen Flow Rate (L/min) [ 0 AMBULATING on Room Air] Oxygen Flow Rate (L/min) [At 0 REST on Room Air] Oxygen Flow Rate (L/min) 1 Oxygen Delivery Method Room Air Weight: 146.8 kg Body Mass Index (BMI) 46.2 Intake and Output for Last 24 Hours 10/03/20 10/04/20 10/05/20 23:59 23:59 23:59 Intake Total 4255.42 / 4255.42 1740 / 1740 1100 / 1100 Output Total 1775 / 1775 Balance 2480.42 / 2480.42 1740 / 1740 1100 / 1100 General: Alert, Oriented x3, Cooperative, No apparent distress, Well developed, Well nourished, - - Morbidly obese. Speaking in full sentences. HEENT: Atraumatic, PERRLA, EOMI, Normocephalic, - - No scleral icterus or injection noted Oral: Moist Mucosa, No Gingival or Mucosal Lesions/ Ulcerations Neck: Supple, No JVD, No Nodes, Trachea Midline Lungs: Clear to auscultation, Normal air movement, No rhonchi, No wheeze, No rales Cardiovascular: Regular rate, Regular Rhythm, Normal S1, Normal S2, No murmurs, No rub noted, No Gallop Abdomen: Bowel Sounds Present, Soft, Non Tender, Non-Distended, Obese Extremities: No clubbing, No cyanosis, No edema Skin: No rashes, No breakdown Musculoskeletal: No Tenderness to Palpation of Joints or Extremities Lymphatic: No Cervical, Supraclavicular, or Inguinal Adenopathy Neurological: Cranial nerves II-XII grossly intact, Neuro grossly intact, Motor Exam 5/5 strength throughout Psych/Mental Status: Alert and oriented to time, place, person, mood and affect Laboratory Results 10/04/20 12:40: POC Glucose 153 H 10/04/20 14:25: Hgb 8.6 L, Hct 27.3 L 10/04/20 15:48: POC Glucose 178 H 10/04/20 22:50: POC Glucose 162 H 10/05/20 04:25: WBC 6.9, RBC 3.90 L, Hgb 8.7 L, Hct 28.0 L, MCV 71.8 L, MCH 22.3 L, MCHC 31.1 L, RDW Std Deviation 41.7, RDW Coeff of Kg 16.6 H, Plt Count 436, MPV 9.6, Immature Gran % (Auto) 1.000 H, Neut % (Auto) 66.8, Lymph % (Auto) 23.5, [place] % (Auto) 8.0, Eos % (Auto) 0.6, Baso % (Auto) 0.1, Absolute Neuts (auto) 4.6, Absolute Lymphs (auto) 1.61, Nucleated RBC % 0.4 10/05/20 04:25: Sodium 139, Potassium 3.6, Chloride 105, Carbon Dioxide 27.0, Anion Gap 7, BUN 6 L, Creatinine 0.65 L, Estim Creat Clear Calc 162.19, Est GFR (MDRD) Af Amer 170, Est GFR (MDRD) Non-Af 140, BUN/Creatinine Ratio 9.2 L, Glucose 152 H, Calcium 8.2 L, Total Bilirubin 0.60, AST 18, ALT 29, Alkaline Phosphatase 47, Total Protein 6.3 L, Albumin 2.5 L, Globulin 3.8, Albumin/Globulin Ratio 0.7 L 10/05/20 06:01: POC Glucose 151 H 10/05/20 11:41: POC Glucose 223 H Current Medications Acetaminophen (Acetaminophen 325 Mg Tablet) 650 mg PO Q4H PRN PRN PRN Reason: pain, 1-10/ FEVER T >100.4 Last Admin: 09/30/20 14:08 Dose: 650 mg Documented by: Al Hydroxide/Mg Hydroxide (Mag Hydrox/Al Hydrox/Simeth 30 Ml Udc) 30 ml PO Q6H PRN PRN PRN Reason: Gastric Burning Last Admin: 10/01/20 11:27 Dose: 30 ml Documented by: Dextrose (Dextrose 50%-Water 25 Gm/50 Ml Disp.Syrin) 0 gm IV X1 PRN; Protocol PRN Reason: Hypoglycemia Glucagon (Glucagon 1 Mg/Ml Syringe) 1 mg IM .X1 PRN PRN Reason: Hypoglycemia Insulin Glargine (Insulin Glargine 100 Units/Ml Pen) 15 units SC BID JOEL Last Admin: 10/05/20 09:16 Dose: 15 u Documented by: Insulin Human Lispro (Insulin Lispro 100 Unit/Ml Insuln.Pen) 0 unit SC Q6 JOEL; Protocol Last Admin: 10/05/20 12:29 Dose: 4 units Documented by: Morphine Sulfate (Morphine 2 Mg/Ml Syringe) 2 mg IV Q4H PRN PRN PRN Reason: Pain Score 6-10 Oxycodone HCl (Oxycodone 5 Mg Tablet) 5 mg PO Q4H PRN PRN PRN Reason: Pain Score 4-5 Pantoprazole Sodium (Pantoprazole Sodium 20 Mg Tablet) 20 mg PO BID JOEL Last Admin: 10/05/20 09:14 Dose: 20 mg Documented by: Prochlorperazine Edisylate (Prochlorperazine 10 Mg/2 Ml Vial) 10 mg IV Q6H PRN PRN PRN Reason: Nausea/Vomiting Last Admin: 10/01/20 10:10 Dose: 10 mg Documented by: Sodium Chloride (0.9% Saline Lock 10 Ml Syringe) 10 - 40 ml IV UD PRN PRN Reason: SALINE FLUSH Last Admin: 10/04/20 22:52 Dose: 10 ml Documented by: Medical Necessity - Tobacco Use Smoking Status: Former smoker Assessment/Plan All Active Problems (Last Reviewed 09/25/20 @ 17:19 by Fabricio Shafer) 2019 novel coronavirus–infected pneumonia (NCIP)#8211;infected pneumonia (NCIP) (Acute) Hypotension due to hypovolemia (Acute) Sinus tachycardia by electrocardiography (Acute) Hyponatremia (Acute) Gastroenteritis due to COVID-19 virus (Acute) Acute kidney injury (Acute) Acute renal insufficiency (Acute) Elevated serum creatinine (Acute) Diarrhea (Acute) SARS-associated coronavirus infection (Acute) GI bleed (Acute) RECOMMENDATIONS: 1. Continue to monitor blood counts. Transfuse for a hemoglobin less than 7 g/dL. 2. Continue PPI therapy. 3. Low suspicion for PE. No need for further anticoagulation. 4. Continue remdesivir. Monitor liver and renal function accordingly. 5. Dietary advancement per general surgery recommendations. 6. Walking oximetry prior to discharge 7. Follow-up with pulmonary only if patient requires supplemental oxygen on discharge IMPRESSIONS: 1. Acute blood loss anemia The patient did develop bloody diarrhea in the setting of systemic anticoagulation on Eliquis. Systemic anticoagulation was held and the patient was transfused packed red blood cells. Upper endoscopy did reveal a duodenal ulcer with adherent clot. The patient has remained hemodynamically stable. Patient is not showing any signs of active bleeding clinically and hemoglobin has remained stable. 2. COVID-19 pneumonia The patient is currently maintaining appropriate oxygen saturations on room air. Agree with continuing current supportive measures including remdesivir as ordered. Decadron was discontinued due to the presence of the stomach ulcer. Will obtain a walking oximetry. If patient is hemodynamically stable on room air, no follow-up with pulmonary as indicated. If patient does require supplemental oxygen, can follow-up with nurse practitioner in 4 weeks as an outpatient to work on discontinuation of oxygen. 3. Morbid obesity/hypertension/diabetes mellitus Complicates care, management, recovery and prognosis. Continue Lantus and sliding scale insulin coverage. Patient would benefit from outpatient evaluation for obstructive sleep apnea as he is at high risk for complications from this condition. Inpatient E&M: [id number] [facility] L2
[2020-10-05 14:38] VITALS: BP 161/99; PULSE 103; RESP 18; TEMP 36.7; O2SAT 97
== END 2020-10-05 15:30 | disposition home or self-care (01) | DRG 137 ==
LOC: ED 11:25 → MS2 13:48 → ICU 10-02 11:30 → MS2 10-03 22:26
PROVIDERS: Internal Medicine Infectious Disease; Surgery; Admitting Provider Internal Medicine; Emergency Provider Emergency Medicine; PCP Internal Medicine
PROC: 0DJ08ZZ Inspection of Upper Intestinal Tract, Via Natural or Artificial Opening Endoscopic (ICD-10-PCS; CPT 43235; principal; 2020-10-02 12:55)
DX: U07.1 COVID-19 (principal); J12.89 Other viral pneumonia; A08.39 Other viral enteritis; I95.89 Other hypotension; E86.1 Hypovolemia; E86.0 Dehydration; R00.0 Tachycardia, unspecified; E87.1 Hypo-osmolality and hyponatremia; N17.9 Acute kidney failure, unspecified; K26.4 Chronic or unspecified duodenal ulcer with hemorrhage; D62 Acute posthemorrhagic anemia; T45.515A Adverse effect of anticoagulants, initial encounter; Y92.230 Patient room in hospital as the place of occurrence of the external cause; K42.9 Umbilical hernia without obstruction or gangrene; I10 Essential (primary) hypertension; E11.65 Type 2 diabetes mellitus with hyperglycemia; E78.00 Pure hypercholesterolemia, unspecified; G47.33 Obstructive sleep apnea (adult) (pediatric); E66.01 Morbid (severe) obesity due to excess calories; R09.02 Hypoxemia; Z68.42 Body mass index [BMI] 45.0-49.9, adult; Z79.84 Long term (current) use of oral hypoglycemic drugs; Z79.899 Other long term (current) drug therapy; Z87.891 Personal history of nicotine dependence; R79.89 Other specified abnormal findings of blood chemistry
CPT/HCPCS: 36415; 71045; 80053; 81001; 82274; 82728; 82962; 83615; 83630; 84100; 85014; 85018; 85025; 85027; 85379; 86140; 86850; 86900; 86901; 86920; 86922; 87449; 87506; 93005; 94667; 99284; J7030; J7050; J7120; P9016; A4216; J2916; J3490